=== PATIENT | female | born 1985 | race Caucasian/White ===

== ENCOUNTER → 2020-04-02 11:44 | Outpatient (CLI) | payer BC, SELFPAY ==
[2020-04-03 15:31] LABS: HPV Reflexed? NOT INDICATED
== END ==
PROVIDERS: Visit Provider Obstetrics & Gynecology
DX: Z12.4 Encounter for screening for malignant neoplasm of cervix (principal)
CPT/HCPCS: 88175; G0145

== ENCOUNTER → 2020-04-16 | Outpatient (CLI) | payer BC, SELFPAY ==
--- NOTE | 2020-04-16 16:25 | EMB_PTH ---
PATIENT: MARE FRANCISCO LOC: [facility] U#:[id number] AGE/SX: 34/F ROOM: RE04/16/[address]: Dr. Richard Cisneros MD : 1985 BED: DIS: 04/16/2020 SPEC #: [id number] RECD: 04/16/20 17:43 STATUS: YG JAMAR #: [id number] KENNEDI: 04/16/20 16:[address]: Richard Cisneros DEPT: SURGICAL PATHOLOGY RECD BY: Bijal Gonzalez Tissues: Endometrium, NOS Procedures: Surgery Specimen Level IV HEADER OPERATION: Endometrial biopsy PRE-OP DIAGNOSIS: N92.0 TISSUE SUBMITTED: Endometrial biopsy MICROSCOPIC DIAGNOSIS Endometrial biopsy: Proliferative endometrium. AZAR:dannie 04/18/20 MICROSCOPIC DESCRIPTION Slides are reviewed. GROSS DESCRIPTION Received in fixative is one container labeled with the patient's name and designated EM biopsy. The specimen consists of multiple fragments of hemorrhagic soft tissue mixed with mucoid tissue that in aggregate measure 3 x 2.5 x 0.3 cm. The entire specimen is submitted in one cassette. / SJ:rg 04/17/20 TC:4 CPT: 67648
== END | disposition home or self-care (01) ==
LOC: LAB 04-17 06:28 → LABSPEC 04-17 06:32
PROVIDERS: Visit Provider Obstetrics & Gynecology
DX: N92.0 Excessive and frequent menstruation with regular cycle (principal)
CPT/HCPCS: 88305

== ENCOUNTER 2020-05-26 12:21 | Day surgery (SDC) | payer BC, SELFPAY ==
[2020-05-21 14:06] LABS: Hematocrit 38.5 % (37-47); Hemoglobin 12.8 g/dL (12.0-15.0); Mean Corp Hgb Conc 33.2 g/dL (32-36); Mean Corpuscular Hgb 31.1 pg (27.0-32.0); Mean Corpuscular Volume 93.7 fL (81-99); Mean Platelet Vol. 8.8 fl (6.2-12.0); Platelet Count 231 K/mm3 (150-450); RBC Distribution Width CV 11.6 % (11.6-14.6); Red Blood Count 4.11 M/mm3 (4.2-5.4); White Blood Count 6.5 K/mm3 (4.4-11.0)
[2020-05-21 14:19] LABS: Prothrombin Time (Protime)PT. 12.5 SECONDS (11.7-14.9)
[2020-05-21 14:20] LABS: Partial Thromboplast Time 22.3 Seconds (24.1-36.2)
[2020-05-21 14:29] LABS: Thyroid Stim Hormone (TSH) 0.92 uIU/mL (0.358-3.74)
--- NOTE | 2020-05-25 21:34 | HP.PCM_ITS ---
History and Physical Date of Admission: 05/26/20 Surgical History and Physical Marcela Disla, a 34 year old female 0 2 0 0 2, presents for HTA, Hysteroscopy and D and C on May 26, 2020 at 2:00. -- Menorrhagia -- Heavy menses which began years ago. Marcela claims it started gradually It occurs with menses. It is located in the vagina. Severity is moderate and not improving; Associated signs and symptoms are dysmenorrhea. Additional comments are: u/s shows no polyps or fibroids today. MEDICATIONS HISTORY: ALLERGIES: NKDA Infections - Chicken pox Illnesses - no serious past illnesses Accidents - None Hospitalizations - see surgery and Childbirth Eclampsia 1st , Pre-eclampsia 2nd ; Review of Systems: GENERAL - Denies fever, or chills SKIN - Denies skin changes EYES - Denies visual changes EARS - Denies difficulty hearing NOSE - Denies nasal congestion or bleeding MOUTH - Denies sore throat or difficulty swallowing NECK - Denies pain or swelling RESPIRATORY - Denies shortness of breath or wheezing CARDIOVASCULAR - Denies palpitations or chest pain GASTROINTESTINAL - Denies nausea, vomiting, diarrhea, constipation GENITOURINARY - Denies dysuria, frequency of urination, incontinence of urine MUSCULOSKELETAL - Denies joint or muscle pain NEUROLOGICAL - Denies localized numbness or weakness PSYCHIATRIC - Denies depression or anxiety ENDOCRINE - Denies heat or cold intolerance, weight loss or gain HEMATO-IMMUNOLOGIC - Denies excessive bleeding with cuts SOCIAL HISTORY: Alcohol Use - drinks occasionally Smoking - stopped 2006 Diet - no special diet Lifestyle - moderate stress lifestyle and Exercise - active work Seat Belt Use - always Employer - [employer] [address] 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 05/15/2006 2. 06/11/2011 PHYSICAL EXAM BP- 104/70 Sitting, Right arm, regular cuff Weight- 200.58715 lbs Height- 61.25 inch BMI:37.56 CONSTITUTIONAL - NAD, well nourished, and well developed NEUROLOGICAL - Cranial nerves II-XII grossly intact PSYCHIATRIC - A and O to time, place, person, mood and affect External Genital Vagina - non-tender without lesions Urethra/Urethral Meatus - non-tender Bladder - non-tender Vagina - vaginal palma are pink and moist without loss of rugae and no evidence of atropy Cervix - without cervical motion tenderness and has normal size and features without evident lesions Uterus - multiparous size 6 cm & wt 75-125 g Adnexa - clear without masses or tenderness ASSESSMENT/PLAN: 1. Premenopause Menorrhagia EMBx OK. Discussed options and patient declines OCPs or other medications (prior tubal). Desires we proceed with HTA, H/S and D and C. Discussed RBAs and all questions answered.
[2020-05-26] VITALS (8 sets, daily range): BP systolic 115–144; BP diastolic 77–96; PULSE 70–90; RESP 15–16; TEMP 35.9–37.1; O2SAT 95–100; BMI 37.3
--- NOTE | 2020-05-26 | EMB_PTH ---
PATIENT: MARE FRANCISCO LOC: [facility] [place] U#:[id number] AGE/SX: 34/F ROOM: RE05/26/[address]: Dr. Richard Cisneros MD : 1985 BED: DIS: 05/26/2020 SPEC #: [id number] RECD: 05/26/20 15:57 STATUS: YG JAMAR #: [id number] KENNEDI: 05/26/20 00:[address]: Richard Cisneros DEPT: SURGICAL PATHOLOGY RECD BY: Ulises Clayton ENTERED: 05/27/20 07:44 SP TYPE: ENDOM BX/C MARYAM DR: Fanny Grossman, TRAFFIC OFFICER-Antonio Tissues: Endometrium, NOS Procedures: Surgery Specimen Level IV HEADER OPERATION: Hysteroscopy, D & C hydroablation PRE-OP DIAGNOSIS: Premenopause menorrhagia TISSUE SUBMITTED: Endometrial curettings MICROSCOPIC DIAGNOSIS Endometrium, curettings: Secretory endometrium. Scant strips of detached squamous epithelial cells. AM:dannie 05/28/20 MICROSCOPIC DESCRIPTION Slides are reviewed. GROSS DESCRIPTION Received in fixative is one container labeled with the patient's name and designated endometrial curettings. The specimen consists of multiple fragments of hemorrhagic soft tissue that in aggregate measure 7.5 x 3 x 0.3 cm. The entire specimen is submitted in three cassettes. / SJ:dannie 05/27/20 TC:5 CPT: 08010
[2020-05-26] MEDS: Lactated Ringers 1,000 ML 100 ML IV (12:50)
--- NOTE | 2020-05-26 14:42 | OP.PCM_ITS ---
Report of Operation Date of Procedure: 05/26/20 Pre-Operative Diagnosis: Menorrhagia Post-Operative Diagnosis: Menorrhagia Surgery/Procedure Performed:: Diagnostic Hysteroscopy, Dilation and Curettage, Hydrothermal Ablation Description of Surgical Findings:: 8 cm endometrial cavity without polyps or fibroids noted. Cervix which protruded to within 3-4 cm of the introitus with tenaculum pull down. Type of Anesthesia:: MAC Anesthesiologist: Juanito Moreno Specimen's removed: Endometrial curettings Estimated Blood Loss (mL): Minimal Fluids Replaced: Crystalloid Description of Procedure: Surgeon: Richard Cisneros MD, FACOG Indication: This is a 84 year old patient who has been having problems with extremely heavy menses. Conservative measures have not been helpful. Endometrial sampling was benign and pelvic ultrasound showed that ablation may be helpful. Pt has been counseled regarding the risks, benefits and alternatives of this procedure and all questions answered. She understands that only about half of patients will have amenorrhea after this procedure. Procedure: Patient taken to the operating room where after induction of general anesthesia the patient was prepped and draped in the usual sterile fashion. Bladder was drained of urine with a catheter. Anterior cervix grasped and cervix was dilated to about 17 Djiboutian size. Hysteroscopic hydrothermal ablation (HTA) unit was place in the cervix and the above findings were noted. HTA unit was removed and the uterus was gently curetted removing all contents. An HTA ablation cycle was then carried out at about 90 degrees Centigrade for 10 minutes with virtually no fluid loss during the procedure. After an appropriate cool down the HTA unit was removed with minimal bleeding noted. The patient tolerated the procedure well and was taken to the recovery room in satisfactory condition. Sponge, instruments and needle counts were all correct. There were no apparent complications of the surgery. Cefotetan 2 gms IV was given prior to the procedure. Grafts/Implants Used: None - Complications None - Admit VTE Documentation VTE Present on Admission: Yes VTE Mechan Device Prophylaxis: SCD's
--- NOTE | 2020-05-26 14:46 | DCINST_ITS ---
Discharge Diet: No Restrictions Discharge Activity: Return to Normal Activity, May Shower, May Take a Tub Bath Call your doctor if you observe: Fever of 101 or Higher, Inability to urinate, Inability to have a bowel movement, Using more than one pad per hour Allergies/Adverse Reactions: Allergies No Known Allergies Allergy (Verified 05/26/20 12:32) Medications to take at Discharge Ferrous Sulfate [Iron] 325 mg PO DAILY 05/21/20 Oxycodone [Oxyir] 5 mg PO Q6H PRN PRN 7 Days #7 tablet 05/26/20 The following prescriptions were given: Oxycodone [Oxyir] 5 mg PO Q6H PRN PRN 7 Days #7 tablet PRN Reason: Pain Score 6-10/10 Transmission Status: Sent to [id number] Primary Care Physician: Fanny Grossman NP-C [Primary Care Provider] - Test Results: Test results from this visit will be discussed in further detail at your follow- up appointment, if applicable. Please Follow Up With: Richard Cisneros MD When: 2-3 weeks
[2020-05-26] MEDS: oxyCODONE 5 MG Tablet PO (15:51)
== END 2020-05-26 16:34 | disposition home or self-care (01) ==
LOC: SDC 12:23 → AC 12:24
PROVIDERS: Anesthesiology; PCP Nurse Practitioner Family; Referring Provider Obstetrics & Gynecology; Visit Provider Obstetrics & Gynecology
PROC: 0U5B8ZZ Destruction of Endometrium, Via Natural or Artificial Opening Endoscopic (ICD-10-PCS; CPT 58563; principal; 2020-05-26 13:50)
DX: N92.4 Excessive bleeding in the premenopausal period (principal); D64.9 Anemia, unspecified; Z87.891 Personal history of nicotine dependence; Z11.59 Encounter for screening for other viral diseases
CPT/HCPCS: 00952; 58563; 64415; 76942; 36415; 84443; 85027; 85610; 85730; 86850; 86900; 86901; 87635; 88305; G2023; J7120; U0003

== ENCOUNTER 2021-11-25 15:32 | Outpatient (CLI) | payer BC, SELFPAY ==
[2021-11-30 11:39] LABS: HPV Reflexed? NOT INDICATED
== END 2021-11-25 23:59 | disposition short-term general hospital (02) ==
LOC: LABSPEC 15:33
PROVIDERS: PCP Nurse Practitioner Family; Visit Provider Obstetrics & Gynecology
DX: Z12.4 Encounter for screening for malignant neoplasm of cervix (principal)
CPT/HCPCS: 88175; G0145

== ENCOUNTER → 2022-08-19 | Outpatient (CLI) | payer BC, SELFPAY | END | disposition home or self-care (01) | PROVIDERS: PCP Nurse Practitioner Family; Visit Provider Obstetrics & Gynecology | DX: N76.0 Acute vaginitis (principal) ==

== ENCOUNTER 2023-09-27 10:06 | Day surgery (SDC) | payer BC, SELFPAY ==
--- NOTE | 2023-09-21 07:14 | EKG12_ITS ---
Test Reason : PREOP Blood Pressure : / mmHG Vent. Rate : 095 BPM Atrial Rate : 095 BPM P-R Int : 132 ms QRS Dur : 078 ms QT Int : 340 ms P-R-T Axes : 035 -03 023 degrees QTc Int : 427 ms Normal sinus rhythm with sinus arrhythmia Normal ECG Confirmed by ANCELMO LOPES, HAROLDO ([id number]), medical transcription editor CHAGO WISEMAN ([id number]) on 09/28/2023 11:52:08 AM Referred By: Kathy Benitez Confirmed By:HAROLDO AG MD
[2023-09-21 07:56] LABS: Hematocrit 40.3 % (37-47); Hemoglobin 13.4 g/dL (12.0-15.0); Mean Corp Hgb Conc 33.3 g/dL (32-36); Mean Corpuscular Hgb 31.2 pg (27.0-32.0); Mean Corpuscular Volume 93.9 fL (81-99); Mean Platelet Vol. 8.8 fl (6.2-12.0); Platelet Count 233 K/mm3 (150-450); RBC Distribution Width CV 11.9 % (11.6-14.6); RBC Distribution Width SD 41.2 fl (35.1-43.9); Red Blood Count 4.29 M/mm3 (4.2-5.4)
[2023-09-21 08:26] LABS: Anion Gap 4 (5-15); BUN 10 mg/dL (7-18); BUN/Creat Ratio 10.7 RATIO (10-20); Calcium,Total 8.9 mg/dL (8.5-10.1); Chloride 108 mmol/L (98-107); Creatinine, Serum 0.93 mg/dL (0.55-1.02); EST Glomerular Filtration Rate 71 mL/min (>60); Est Glom Filt Rate - Afr Amer 86 mL/min (>60); Glucose 115 mg/dL (74-106); Magnesium 2.2 mg/dL (1.6-2.6); Potassium 3.6 mmol/L (3.5-5.1); Sodium Level 138 mmol/L (136-145)
[2023-09-27] VITALS (8 sets, daily range): BP systolic 91–123; BP diastolic 56–94; PULSE 61–95; RESP 16–20; TEMP 36.3–36.6; O2SAT 95–100; BMI 37.5
--- NOTE | 2023-09-27 07:36 | HP.PCM_ITS ---
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 Required: No Is patient in pain?: No Allergies No Known Allergies Allergy (Verified 09/15/23 10:13) Medications ferrous sulfate 325 mg (65 mg iron) tablet 325 mg PO DAILY 05/21/20 [History Confirmed 09/15/23] acetaminophen 325 mg capsule (Tylenol) 325 mg PO ONCE PRN 08/01/23 [History Confirmed 09/15/23] alprazolam 0.25 mg tablet (Xanax) 0.25 mg PO QHS PRN 08/01/23 [History Confirmed 09/15/23] ibuprofen 300 mg tablet 600 mg PO Q6H PRN 08/01/23 [History Confirmed 09/15/23] meclizine 12.5 mg tablet 12.5 mg PO TID PRN 08/01/23 [History Confirmed 09/15/23] Is last menstrual period known: Yes Post menopausal: No Patient : No : No PFSH Surgical History (Updated 08/01/23 @ 10:07 by Chayo Vasquez) H/O bilateral salpingectomy History of endometrial ablation Hx of section Social History (Updated 08/01/23 @ 10:00 by Chayo Vasquez) number of children: 2 current occupational status: employed 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 Female Reproductive History Menopausal Symptoms: No night sweats History Past Pregnancies Del. Date Name GA/Weeks Outcome Route Bth Weight Gen Labor Lgth Anesthesia Del Locatn Provider FOB Unknown Tomas live - Unknown Nilda live - ROS Const Constitutional: Denies fatigue, night sweats, weight gain or weight loss ENT ENT: Reports system reviewed and no additional complaints, except as documented Cardio Card: Denies chest pain Resp Resp: Denies cough or dyspnea GI GI: Reports as per HPI; Denies abdominal pain, constipation, nausea or vomiting : Denies nipple discharge, urinary frequency, urinary incontinence, urinary hesitancy, urinary urgency, vaginal discharge, vaginal dryness, vaginal odor or vaginal pruritus Musc Musc: Denies arthralgias, back pain or muscle weakness Skin Skin/Breast: Denies alopecia, change in hair, dry skin, breast mass, breast pain, breast skin changes or nipple discharge Neuro Neuro: Reports system reviewed and no additional complaints, except as documented Psych Psych: Reports system reviewed and no additional complaints, except as do cumented Endo Endo: Denies cold intolerance, excessive sweating, heat intolerance or polydipsia Nick/Lymph Hematologic/Lymphatic: Denies easy bleeding, Denies easy bruising and Denies lymphadenopathy Exam Const General: cooperative, healthy appearing, comfortable and no acute distress Orientation: alert [facility] Head: normal to inspection and normocephalic Ears: hearing grossly normal bilaterally and external ears normal Nose: external nose normal and nares normal Face and sinus: normal facial exam Neck Neck: normal visual inspection and no lymphadenopathy Thyroid: thyroid normal Chest Chest palpation & inspection: normal inspection of the chest Resp Effort & Inspection: normal respiratory effort Auscultation: clear to auscultation bilaterally Cardio Rate: regular rate Rhythm: regular rhythm Heart Sounds: S1 normal and S2 normal GI Inspection: normal to inspection and non-distended Palpation: soft and no hepatosplenomegaly Musc Other: gross motor intact no deficits, full bilateral strength Skin General: no rashes or lesions noted Neuro General: patient alert, patient awake, moves all extremities and no focal motor deficits Motor: muscle tone normal throughout Extrem General: normal to inspection and no pedal edema Psych Appearance: grossly normal Mental Status: mental status grossly normal Affect: normal affect Speech and Movement: speech and movement normal Coding Level of Care Code No Charge Diagnoses Chronic pelvic pain in female R10.2; G89.29 Assessment and Plan Assessment and Plan (1) Chronic pelvic pain in female: Status: Chronic Comment: suspect post ablation tubal ligation pelvic pain syndrome, nl US and CT scan, failed progestin therapy. plan STEPHANIE BS. Plan After discussing the patient's diagnosis and treatment plan options, patient wishes to proceed with surgical management. I have discussed with the patient the risks, benefits, and alternatives of the procedure which include but are not limited to risks of anesthesia, bleeding, infection, possible damage to bowel, bladder, or surrounding vasculature which could lead to additional surgery to evaluate any complications. Patient agrees to procedure and wishes to proceed. ACOG/uptodate references given for additional information regarding procedure. UPDATE- I have seen the patient and performed any clinically relevant updates to the history and physical exam. Kathy Benitez MD
[2023-09-27 10:52] LABS: Internal QC Validated? YES +Cl - CLEAR BKGD; Pregnancy, Urine Negative Negative
[2023-09-27] MEDS: Lactated Ringers 1,000 ML 40 ML IV ×2 (10:59→18:38)
[2023-09-27] MEDS: Magnesium 1 GM over 15 mins IV (11:00)
[2023-09-27] MEDS: Scopolamine 1mg/72hr Patch 1 PATCH TD (11:00)
[2023-09-27] MEDS: Acetaminophen 500 MG Tablet 1000 MG PO (11:04)
[2023-09-27] MEDS: Celecoxib 200 MG Capsule 400 MG PO (11:05)
[2023-09-27] MEDS: Gabapentin 600 MG Tablet PO (11:05)
[2023-09-27] MEDS: Phenazopyridine 95 MG Tablet 190 MG PO (11:05)
[2023-09-27] MEDS: dexAMETHasone 4 MG/ML Vial 8 MG IV (11:06)
[2023-09-27] MEDS: Enoxaparin 40 MG/0.4 ML Syringe SC (11:06)
--- NOTE | 2023-09-27 12:25 | HYST_PTH ---
PATIENT: MARE FRANCISCO LOC: [facility] [place] U#:[id number] AGE/SX: 38/F ROOM: RE09/27/[address]: Dr. Kathy Benitez MD : 1985 BED: DIS: 09/27/2023 SPEC #: [id number] RECD: 09/28/23 09:27 STATUS: YG JAMAR #: [id number] KENNEDI: 09/27/23 12:[address]: Kathy Benitez DEPT: SURGICAL PATHOLOGY RECD BY: Deyanira Paige ENTERED: 09/28/23 09:27 SP TYPE: HYSTERECT OTHR DR: Fanny Grossman, AUTOMOBILE BODY REPAIR SUPERVISOR-C Tissues: Uterus, NOS Procedures: Surgery Specimen Level V HEADER OPERATION: ERAS, hysterectomy, LAVH, bilateral salpingectomy PRE-OP DIAGNOSIS: Post ablation pelvic pain TISSUE SUBMITTED: Uterus, cervix, bilateral fallopian tubes MICROSCOPIC DIAGNOSIS Uterus, hysterectomy: Cervix - Nabothian cysts and mild chronic inflammation. Endometrium - weakly proliferative to inactive endometrium. Myometrium - leiomyomas. Right fallopian tube - benign paratubal cyst. Left fallopian tube - benign paratubal cyst. AM:dannie 09/30/2023 MICROSCOPIC DESCRIPTION Slides are reviewed. GROSS DESCRIPTION Received in fixative is one container labeled with the patient's name and designated uterus. The specimen consists of a uterus with attached right and left fallopian tubes and attached cervix. The uterus with cervix measures 9.0 x 5.5 x 3.5 cm and weighs 65.4 gm. The ectocervix is grossly unremarkable. The endocervical canal measures 3.6 cm in length and is grossly unremarkable. The triangular endometrial cavity measures 3.0 x 1.6 cm. The velvety, lozano endometrium measures up to 0.2 cm in thickness. The myometrium measures 2.0 cm in average thickness and contains a firm, rubbery, lozano-white nodule measuring 0.9 cm in greatest dimension. The right and fallopian tubes are similar in appearance with average lengths of 5.0 cm and average diameters of 0.7 cm. The right paratubal soft tissue contains a smooth, glistening cyst containing clear fluid and measuring 1.0 cm. A similar cyst measuring 1.5 cm is present in the left paratubal soft tissue. Ecommerce Manager sections are submitted in eight cassettes as follows: 1 - anterior cervix, 2 - posterior cervix, 3 & 4 - anterior myometrial wall, 5??posterior myometrial wall with nodule, 6 - posterior myometrial wall, 7 - right fallopian tube and paratubal cyst, 8 - left fallopian tube and paratubal cyst. / AM:dannie 09/28/2023 TC:1 CPT: 40870
[2023-09-27 12:49] LABS: Bedside Glucose 90 mg/dL (74-106)
[2023-09-27] MEDS: Cefazolin 2 GM in 0.9% Normal Saline (100mL Bag) 100 ML IV (14:15)
[2023-09-27] MEDS: Bupivacaine 0.25% 30 ML Vial (14:30)
[2023-09-27] MEDS: Vasopressin 20 UNITS/ML Vial (15:15)
[2023-09-27] MEDS: Ondansetron 4 MG/2 ML Vial IV (16:23)
--- NOTE | 2023-09-27 18:02 | PCM.OPRPT ---
Problems Associated Problem List Diagnoses (1) S/P laparoscopic assisted vaginal hysterectomy (LAVH): (2) Chronic pelvic pain in female: Report of Operation Date of Procedure: 09/27/23 Pre-Operative Diagnosis: see A/P Post-Operative Diagnosis: same Surgery/Procedure Performed:: PARADISES Surgeon: Kathy Benitez wellness coordinator: Arnie Masters Type of Anesthesia: General Special Medications: asrista Specimen's removed: uterus, tubes Drains: solorzano Estimated Blood Loss (mL): 200 Fluids Replaced: crystalloid Description of Procedure: Patient received preoperative antibiotics and SCDs were on preoperatively. Patient was taken back to the operating room and placed in the dorsal lithotomy position. General anesthesia was induced and patient was prepped and draped in normal sterile fashion. Uterine manipulator was placed inside the uterus and Solorzano catheter placed in the bladder. The umbilicus was grasped with towel clamps and an intraumbilical incision was made after injecting with quarter percent Marcaine and a Veress needle entered into the abdomen confirmed to be intra-abdominal with a low opening pressure. Abdomen was insufflated with CO2 gas and the Veress needle removed and the 5 mm trocar was placed under direct visualization without complication. Right and left lower quadrants were transilluminated and injected with quarter percent Marcaine and 5 mm ports placed under direct visualization. Pelvis was well visualized see operative findings for additional information. Bilateral fallopian tubes were identified and transected with the LigaSure device across the mesosalpinx to the level of the utero-ovarian ligament which was also transected with the LigaSure device. The broad ligament was opened up by transecting the round ligament bilaterally and skeletonizing the uterine vessels bilaterally and creating a bladder flap using the LigaSure device. The uterine arteries were transected bilaterally with good visualization of the bladder and the ureters were seen to be inferior lateral to the operative area. Attention was then paid to the vaginal portion of the procedure and the cervix was grasped with Simba clamps and circumferentially injected with dilute vasopressin. A circumferential incision was made and the vaginal mucosa was mobilized off posteriorly and the cul-de-sac entered into sharply and a longneck speculum placed. The anterior cul-de-sac was then identified and entered into sharply. The uterosacral ligaments were clamped cut and suture ligated with 0 Monocryl bilaterally followed by the cardinal ligaments which were clamped cut and suture ligated bilaterally with 0 Monocryl. The uterus serially descended and was removed without difficulty. Pelvic sidewall pedicles were checked and noted to have excellent hemostasis. The vaginal mucosa was reapproximated incorporating the posterior peritoneum. This was reapproximated using 0 Vicryl [id number] sutures. Excellent hemostasis was noted. The pelvis and cul-de-sac were well visualized and no significant active bleeding noted but some raw areas were seen on the peritoneum and therefore Willie was applied. Pressure was taken down and the areas visualized and noted of excellent hemostasis. All ports were removed under direct visualization without complication and the abdomen was desufflated of air. The instruments were removed from the abdomen and the vaginal sweep was negative. Port sites on the abdomen were closed with 4-0 Monocryl interrupted sutures and Steri's and windows were applied. She was awoken and taken recovery in stable condition. Grafts/Implants Used: none Complications none Admit VTE Documentation VTE Present on Admission: No VTE Mechan Device Prophylaxis: SCD's VTE Pharm Prophylaxis ordered?: Yes Procedures Urinary/Genital 52xxx-59xxx: 37004 LAVH+BS/O <250gr Uterus
--- NOTE | 2023-09-27 18:03 | DCINST_ITS ---
Discharge Instructions Diet Discharge Diet: No restrictions Activity May resume sexual activity in: 6 weeks Weight Bearing Status: Full weight bearing Dressing / Incision Call your doctor if your incision/area has: Continuous Slow Oozing, Sudden Increased Bleeding, Increased Pain/ Swelling, Increased Redness and Foul Smelling Discharge Call your doctor if you observe: Fever of 101 or Higher, Using more than 1 pad per hour, Shortness of breath, Chest pain and Uncontrolled pain Suture Line Care: Avoid Pulling/Pushing and Avoid Pinching/Bending Remove Dressing in: 1 week (if present) Cleanse incision/area with: Soap & Water and Keep Dressing Clean & Dry Follow Up Care Please Follow Up With: Kathy Benitez MD When: Call to make an appointment with your doctor for a postop visit in 2 and 6 weeks. Test Results: Test results from this visit will be discussed in further detail at your follow- up appointment, if applicable. Discharge Plan Admission Attending Provider: Kathy Benitez Primary Care Provider: Fanny Grossman NP Discharge Orders/Prescriptions Prescriptions: No Action alprazolam [Xanax] 0.25 mg tablet 0.25 mg PO QHS PRN (Reason: anxiety) meclizine 12.5 mg tablet 12.5 mg PO TID PRN (Reason: dizziness) acetaminophen [Tylenol] 325 mg capsule 325 mg PO ONCE PRN (Reason: pain) ibuprofen 300 mg tablet 600 mg PO Q6H PRN (Reason: pain) ascorbic acid (vitamin C) [C-500] 500 mg tablet 1 g PO MOWEFR vitamin B complex Capsule 1 cap PO MOWEFR Referrals / Follow Up: Fanny Grossman NP, CORRECTIONAL COUNSELOR/CASE MANAGER-C [Primary Care Provider] - Disposition Disposition (needs filled in before D/C Order can be placed): Home, Self Care
[2023-09-27] MEDS: Ketorolac 30 MG/ML Syringe IV (18:33)
[2023-09-27 19:06] LABS: Hematocrit 37.7 % (37-47); Hemoglobin 12.3 g/dL (12.0-15.0); Mean Corp Hgb Conc 32.6 g/dL (32-36); Mean Corpuscular Hgb 31.1 pg (27.0-32.0); Mean Corpuscular Volume 95.4 fL (81-99); Mean Platelet Vol. 8.5 fl (6.2-12.0); Platelet Count 221 K/mm3 (150-450); RBC Distribution Width CV 11.8 % (11.6-14.6); RBC Distribution Width SD 40.7 fl (35.1-43.9); Red Blood Count 3.95 M/mm3 (4.2-5.4); White Blood Count 9.9 K/mm3 (4.4-11.0)
== END 2023-09-27 20:23 | disposition home or self-care (01) ==
LOC: SDC 10:08 → AC 10:08
PROVIDERS: Anesthesiology; PCP Nurse Practitioner Family; Referring Provider Obstetrics & Gynecology; Visit Provider Obstetrics & Gynecology
PROC: 0UT9FZZ Resection of Uterus, Via Natural or Artificial Opening With Percutaneous Endoscopic Assistance (ICD-10-PCS; CPT 58552; principal; 2023-09-27 12:00)
DX: N88.8 Other specified noninflammatory disorders of cervix uteri (principal); D25.9 Leiomyoma of uterus, unspecified; N83.8 Other noninflammatory disorders of ovary, fallopian tube and broad ligament; R10.2 Pelvic and perineal pain; G89.29 Other chronic pain; F41.9 Anxiety disorder, unspecified; Z87.891 Personal history of nicotine dependence; Z79.899 Other long term (current) drug therapy
CPT/HCPCS: 58552; 00840; 36415; 80048; 81025; 82962; 83735; 85027; 86850; 86900; 86901; 88307; 93005; J7120; J2405; J3475

== ENCOUNTER → 2024-07-18 | Outpatient (CLI) | payer BC, SELFPAY ==
--- NOTE | 2024-07-18 13:21 | BI_ITS ---
MAMMOGRAPHY - BILATERAL SCREENING REASON FOR EXAM: Female, 39 years old. Routine annual screening examination. PERTINENT HISTORY: Grandfather with breast cancer. TECHNIQUE: Digital bilateral breast joseph (3D mammographic acquisition) in the CC and MLO projections. 2-D mediolateral oblique (MLO) and craniocaudad (CC) views of both breasts were obtained. CAD: Full Field Digital Mammography with Computer Added Detection was performed. COMPARISON: None. Baseline examination. FINDINGS: Breast Composition: The breasts are extremely dense, which lowers the sensitivity of mammography. There are no dominant masses or suspicious calcifications. Benign-appearing bilateral axillary lymph nodes. No other significant abnormalities are identified. BI/SCRN MAMM (CAD)W/JOSEPH BILAT IMPRESSION: Negative screening mammogram. Yearly followup mammogram recommended. (A) ASSESSMENT CATEGORY: BIRADS Category 2: Benign. A letter regarding these results will be sent to the patient by the facility within 30 days. Approximately 10% of breast cancers are not detected by mammography. A normal mammogram should not delay biopsy of a clinically suspicious abnormality. [id number] Electronically Signed: Devonte Ronquillo MD at 14:40 EDT ,
== END | disposition home or self-care (01) ==
LOC: OPBI 13:21
PROVIDERS: PCP Nurse Practitioner Family; Referring Provider Nurse Practitioner Women's Health; Visit Provider Nurse Practitioner Women's Health
DX: Z12.31 Encounter for screening mammogram for malignant neoplasm of breast (principal)
CPT/HCPCS: 77063; 77067

== ENCOUNTER → 2025-05-22 | Outpatient (CLI) | payer BC, SELFPAY ==
--- NOTE | 2025-07-23 16:46 | BI_ITS ---
EXAM: SCRN MAMM (CAD)W/JOSEPH BILAT DATE: 07/23/2025 CLINICAL HISTORY: F, Age 40 y/o , SCREENING History of grandmother with breast cancer. TECHNIQUE: Procedure Code: [id number] Modality: MG Procedure: SCRN MAMM (CAD)W/JOSEPH BILAT COMPARISON: Prior exam(s) dated July 18, 2024.. FINDINGS: TISSUE DENSITY: The breasts are extremely dense, which lowers the sensitivity of mammography. Bilateral Breast Mammographic Findings: No significant masses, calcifications or other abnormalities are identified. Stable small benign-appearing bilateral axillary lymph nodes. No suspicious masses, areas of developing architectural distortion, or suspicious calcifications. There has been no significant interval change. BI/SCRN MAMM (CAD)W/JOSEPH BILAT IMPRESSION: Stable bilateral screening mammogram. OVERALL FINAL ASSESSMENT BI-RADS 2: BENIGN RECOMMENDATION: Routine annual follow-up in 1 Year A letter with findings and recommendations will be mailed to the patient. Reading Location: [facility]
--- OUTSIDE RECORDS SUMMARY | 2025-07-24 07:33 | XMS RPT_ITS | CCD ---
Author Organization [facility] Care Team Providers Care Pipe Racker Name Role Phone NASREEN FERNÁNDEZ Unavailable Unavailable NASREEN FERNÁNDEZ Unavailable Unavailable WESLEY ODOM-CFANNY Unavailable [phone] RENEE LOPES, LARISSA Bautista Unavailable CARLOS ALBERTO LOPES, AXEL Blake Unavailable OBGYN, GENERAL Unavailable Unavailable HEMATOLOGY, GENERAL Unavailable Unavailable TARUN CARLSON Unavailable ALBERT[place] Unavailable Unavailable Vincent DELEON, [place] Unavailable Unavailable CARLOS ALBERTO LOPES, HARJEET Sue Unavailable MERLY LOPES, NASREEN Flores Unavailable [phone] Charmaine Guo Unavailable Unavailable Sari RN, Arielle Unavailable Unavailab elise MANRIQUEZ MD, Marisela REYNA Unavailable [phone] MIRTHA MORAN Unavailable Unavailable Stan MORAN MD Unavailable TYRELL BROCK Unavailable Unavailable [employer] DISPATCH ASSOCIATE, Niecy Unavailable Unavailable JOSIE BEDOLLA Unavailable Unavailable BLANCA BEDOLLA Unavailable Unavailable LINNETTE LOPES, GEORGE Pham Unavailable [phone] Barrington RN, Od[place] Unavailable Unavailjoana Christian RN, Jannette Unavailable Unavailable Unavailable Unavailable Zeus ANNN, Edie Unavailable Unavailable FANNY GROSSMAN SNOWBOARDING INSTRUCTOR Attending Unavailab FANNY Ventura SNOWBOARDING INSTRUCTOR Admitting Unavailab FANNY Ventura SNOWBOARDING INSTRUCTOR Primary Care Unavailab FANNY Ventura SNOWBOARDING INSTRUCTOR Consulting Unavailab le PROVIDER, UNKNOWN Consulting Unavailable PROVIDER, UNKNOWN Consulting Unavailable DANNA DUDLEY MD Attending Unavailable FANNY GROSSMAN SNOWBOARDING INSTRUCTOR Consulting Unavailab le DANNA DUDLEY MD Admitting Unavailable DANNA DUDLEY MD Primary Care Unavailable PROVIDER, UNKNOWN Consulting Unavailable PROVIDER, UNKNOWN Consulting Unavailable FANNY GROSSMAN NP Attending Unavailab FANNY Ventura NP Admitting Unavailab FANNY Ventura NP Primary Care Unavailab FANNY Ventura NP Consulting Unavailab le PROVIDER, UNKNOWN Consulting Unavailable PROVIDER, UNKNOWN Consulting Unavailable MARIAN KAUR MD Unavailable FANNY ROJO Unavailable Unav ailable Unavailable Primary Care Provider Unavailabl e Fanny Grossman Primary Care Unavailable Anderson SNOWBOARDING INSTRUCTOR, Cristel Attending Unavailable Fanny Grossman Referring Unavailable Harjeet Carcamo Primary Care Unavailable Anderson SNOWBOARDING INSTRUCTOR, Cristel Referring Unavailable Anderson SNOWBOARDING INSTRUCTOR, Cristel Attending Unavailable Allergies Allergy Classification Reported Allergen(s) Allergy Type Date of Onset Reaction(s) Facility (8 sources) Gentamicin eye drops (Renamed from Gentamicin in Saline *AMINOGLYCOSIDES* ) 06-15-2023 Itching [facility] [place] - [facility] Medications Current Medications Medication Drug Class(es) Dates Sig (Normalized) Sig (Original) ALPRAZolam 0.25 mg oral tablet (8 sources) Benzodiazepine Start: 01-11-2024 Xanax 0.25 mg tablet ; 1 (one) Tablet two times daily, as needed for 30 days Quantity: 20 {Tablet} Refills: 2 Ordered: 21-Nov-2024 MD MARIAN KAUR Start: 21-Nov-2024 Comments: Medication taken as needed. Start: 06-15-2023 Xanax 0.25 mg tablet ; 1 (one) Tablet two times daily, as needed for 0 days Quantity: 20 {Tablet} Refills: 2 Ordered: 15-Jun-2023 JACKIE GROSSMAN Start: 15-Jun-2023 Comments: Medication taken as needed. Comment on above: Medication taken as needed. ferrous sulfate 325 mg oral tablet (2 sources) Start: 05-21-2020 take 325 mg by mouth once daily Ferrous Sulfate Active 325 MG PO DAILY May 21, 2020 12:00am take 1 tablet by mouth twice coreen ly ferrous sulfate (IRON) 325 mg (65 mg iron) tablet Take 325 mg by mouth twice daily. Active meclizine hydrochloride 12.5 mg oral tablet (8 sources) Antiemetic Start: 01-11-2024 meclizine 12.5 mg tablet ; 1-2 Tablet Tablet up to every 6-8 hours prn dizziness for 10 days Quantity: 30 {Tablet} Refills: 1 Ordered: 11-Jan-2024 JACKIE GROSSMAN FANNY Storm Start: 11-Jan-2024 Comments: Do not drive or operate equipment within 4 hours of taking. Start: 12-20-2017 End: 11-16-2018 Meclizine HCl 12.5 MG Oral T ablet ; 1-2 Tablet Tablet up to every 6-8 hours prn dizziness for 10 days Quantity: 30 {Tablet} Refills: 1 Ordered: 16-Nov-2018 PANCHO Ferris Start: 20-Dec-2017 End: 16-Nov-2018 Status: Inactive Comments: Do not drive or operate equipment within 4 hours of taking. Comment on above: Do not drive or oper ate equipment within 4 hours of taking. triamcinolone acetonide 1 mg/ml topical cream (2 sources) Corticosteroid Start: 11-21-2024 triamcinolone acetonide 0.1 % topical cream ; 1 (one) appication two times daily for 7 days Quantity: 15 {Gram} Refills: 0 Ordered: 21-Nov-2024 MD MARIAN KAUR Start: 21-Nov-2024 Comments: medication to be dispensed in office Comment on above: medication to be dis pensed in office Completed/Discontinued Medications Medication Drug Class(es) Dates Sig (Normalized) Sig (Original) amoxicillin 500 mg oral tablet (8 sources) Penicillin-class Antibacterial Start: 12-22-2010 End: 01-01-2011 take 1 tablet by mouth three times daily AMOXICILLIN, 500MG (Oral Tablet) ; 1 (one) Tablet three times daily for 10 days Quantity: 30 {Tablet} Refills: 0 Ordered: 04-Jan-2011 MD NASREEN FERNÁNDEZ Start: 22-Dec-2010 End: 01-Jan-2011 Status: Inactive ascorbic acid 125 mg / iron carbonyl 65 mg delayed release oral tablet (8 sources) Vitamin C take 1 tablet by mouth once daily Vitron-C 65-125 MG Oral Tablet ; 1 daily (65-125 MG) Status: Inactive azithromycin 250 mg oral tablet (8 sources) Macrolide Antimicrobial Start: 04-14-2011 End: 04-19-2011 AZITHROMYCIN, 250MG (Oral Tablet) ; 1 Tablet daily for 5 days Quantity: 6 {Tablet} Refills: 0 Ordered: 05-May-2011 MD NASREEN FERNÁNDEZ Start: 14-Apr-2011 End: 19-Apr-2011 Status: Inactive Comments: take two tablets day one and then one tablet daily for 4 days Comment on above: take two tablets day one and then one tablet daily for 4 days 24 hr buPROPion hydrochloride 150 mg extended release oral tablet (8 sources) Aminoketone Start: 05-20-2014 End: 07-21-2016 take 2 tablets by mouth once daily, then take 1 tablet by mouth once daily Wellbutrin XL 150 MG Oral Tablet Extended Release 24 Hour ; 2 (two) Tablet daily for 60 days Quantity: 120 {Tablet} Refills: 1 Ordered: 21-Jul-2016 PANCHO Christian Start: 20-May-2014 End: 21-Jul-2016 Status: Inactive Comments: Extended ReleaseStart by taking 1 tablet per day for first week. Comment on above: Extended ReleaseStar t by taking 1 tablet per day for first week. esomeprazole 40 mg delayed release oral capsule (8 sources) Proton Pump Inhibitor Start: 03-19-2013 End: 07-21-2016 NexIUM 40 MG Oral Capsule Delayed Release ; [address] prn for 30 days Quantity: 30 {Capsule_DR} Refills: 1 Ordered: 21-Jul-2016 PANCHO Christian Start: 19-Mar-2013 End: 21-Jul-2016 Status: Inactive ketoconazole 200 mg oral tablet (8 sources) Azole Antifungal Start: 12-29-2011 End: 12-31-2011 take 2 tablets by mouth every week KETOCONAZOLE, 200MG (Oral Tablet) ; 2 (two) Tablet now and in1 week for 2 days Quantity: 4 {Tablet} Refills: 0 Ordered: 01-Mar-2012 MD NASREEN FERNÁNDEZ Start: 29-Dec-2011 End: 31-Dec-2011 Status: Inactive lisinopril 10 mg oral tablet (8 sources) Angiotensin Converting Enzyme Inhibitor Start: 12-20-2017 End: 06-07-2018 take 1 tablet by mouth once daily Lisinopril 10 MG Oral Tablet ; 1 (one) Tablet Tablet daily for 30 days Quantity: 30 {Tablet} Refills: 1 Ordered: 07-Jun-2018 GRAEMEJOSIE LEDESMA Start: 20-Dec-2017 End: 07-Jun-2018 Status: Inactive Comments: did not start yet. 01-10-18 Comment on above: did not start yet. LORazepam 0.5 mg oral tablet (8 sources) Benzodiazepine Start: 02-08-2014 End: 03-10-2014 take 1 tablet by mouth once daily as needed ATIVAN, 0.5MG (Oral Tablet) ; one Tab once a day as needed for 30 days Quantity: 15 {Tube} Refills: 0 Ordered: 08-Feb-2014 MD Stan MORAN Start: 08-Feb-2014 End: 10-Mar-2014 Status: Inactive Comments: Medication taken as needed. Comment on above: Medication taken as needed. naproxen 500 mg oral tablet (8 sources) Nonsteroidal Anti-inflammatory Drug Start: 11-13-2010 End: 01-15-2011 take 1 tablet by mouth twice daily as needed NAPROXEN, 500MG (Oral Tablet) ; 1 (one) Tablet two times daily, as needed for 0 days Quantity: 30 {Tablet} Refills: 0 Ordered: 15-Jan-2011 PANCHO Ferris Start: 13-Nov-2010 End: 15-Jan-2011 Status: Inactive Comments: Medication taken as needed. meds to be dispensed in office Comment on above: Medication taken as needed. meds to be dispensed in office omeprazole 20 mg delayed release oral capsule (8 sources) Proton Pump Inhibitor Start: 07-07-2011 End: 08-18-2011 take 1 capsule by mouth once daily PRILOSEC, 20MG (Oral Capsule Delayed Release) ; 1 (one) Capsule DR daily for 30 days Quantity: 30 {Capsule_DR} Refills: 1 Ordered: 18-Aug-2011 MIRTHA MORAN Start: 07-Jul-2011 End: 18-Aug-2011 Status: Inactive oxyCODONE hydrochloride 5 mg oral tablet (1 source) Opioid Agonist Start: 05-26-2020 End: 06-02-2020 take 5 mg by mouth every six hours as needed Oxycodone Discontinued 5 MG PO EVERY 6 HOURS NEEDED 05 13May 26, 2020 June 02, 2020 12:02am sertraline 25 mg oral tablet (8 sources) Serotonin Reuptake Inhibitor Start: 02-15-2019 End: 06-06-2019 take 1 tablet by mouth once daily Sertraline HCl 25 MG Oral Tablet ; 1 (one) Tablet daily for 0 days Quantity: 90 {Tablet} Refills: 1 Ordered: 06-Jun-2019 PANCHO Christian Start: 15-Feb-2019 End: 06-Jun-2019 Status: Inactive Comments: Mail order. Comment on above: Mail order. sulfamethoxazole 800 mg / trimethoprim 160 mg oral tablet (8 sources) Dihydrofolate Reductase Inhibitor Antibacterial, Sulfonamide Antimicrobial Start: 08-04-2023 End: 08-07-2023 Bactrim DS 800 mg-160 mg tablet ; 1 (one) Tablet two times daily for 3 days Quantity: 6 {Tablet} Refills: 0 Ordered: 04-Aug-2023 JACKIE GROSSMAN Start: 04-Aug-2023 End: 07-Aug-2023 Status: Inactive DOUGLAS- (Oral Capsule) (8 sources) Start: 12-16-2010 End: 08-18-2011 take 1 capsule by mouth once daily DOUGLAS- (Oral Capsule) ; 1 Capsule daily for 100 days Quantity: 100 {Capsule} Refills: 10 Ordered: 18-Aug-2011 MIRTHA MORAN Start: 16-Dec-2010 End: 18-Aug-2011 Status: Discontinued Comments: This order discontinued per [facility]. Comment on above: This order discontin ued per [facility]. Problems Active Problems Problem Classification Problem Date Documented Date Episodic/Chronic Abdominal pain (20 sources) Pain in pelvis; Translations: [Pelvic and perineal pain] 06-15-2023 Episodic Acute bronchitis (8 sources) Acute bronchitis; Translations: [Acute bronchitis, unspecified] 04-14-2011 Episodic Administrative/social admission (16 sources) Patient encounter status; Translations: [Counseling, unspecified] 06-15-2023 Episodic Allergic reactions (4 sources) Inflammatory dermatosis; Translations: [Dermatitis, unspecified] 11-21-2024 Episodic Anxiety disorders (20 sources) Anxiety; Translations: [Anxiety disorder, unspecified] 06-15-2023 Chronic Comment on above: Declines daily medic ationUses xanax intermittently Cardiac dysrhythmias (20 sources) Palpitations; Translations: [Palpitations] Onset: 06-22-2023 06-22-2023 Episodic Conditions associated with dizziness or vertigo (20 sources) Dizziness; Translations: [Dizziness and giddiness] 12-20-2017 Episodic Deficiency and other anemia (20 sources) Iron deficiency anemia; Translations: [Iron deficiency anemia, unspecified] 06-15-2023 Episodic Deficiency and other anemia (20 sources) Anemia; Translations: [Anemia, unspecified] 06-07-2018 Episodic Diabetes mellitus without complication (8 sources) Increased glucose level; Translations: [Other abnormal glucose] 05-20-2014 Episodic Esophageal disorders (16 sources) Esophageal reflux 03-19-2013 Chronic Genitourinary symptoms and ill-defined conditions (20 sources) Urinary symptoms ; Translations: [Unspecified symptoms and signs involving the genitourinary system] 08-04-2023 Episodic Headache; including migraine (16 sources) Headache; including migraine 06-15-2023 Comment on above: Congenital heart def ect. Migraine headache. Hypertension complicating ; childbirth and the puerperium (16 sources) Unspecified hypertension complicating , childbirth, or the puerperium, unspecified as to episode of care or not applicable 05-19-2011 Chronic Hypertension complicating ; childbirth and the puerperium (8 sources) Eclampsia - delivered; Translations: [Eclampsia complicating the puerperium] 05-19-2011 Episodic Immunizations and screening for infectious disease (20 sources) Needs influenza immunization; Translations: [Encounter for immunization] 06-15-2023 Episodic Malaise and fatigue (8 sources) Fatigue; Translations: [Other fatigue] 03-01-2012 Episodic Mood disorders (20 sources) Depressive disorder; Translations: [Depressive disorder, not elsewhere classified] 12-19-2019 Chronic Comment on above: Clinical. Mycoses (8 sources) Pityriasis versicolor; Translations: [Pityriasis versicolor] 12-29-2011 Episodic Other aftercare (20 sources) H/O: high risk medication; Translations: [Other [place] [facility] (current[facility] drug therapy] 02-11-2021 Episodic Other circulatory disease (19 sources) Elevated blood pressure; Translations: [Elevated blood-pressure reading, without diagnosis of hypertension] 12-19-2019 Episodic Other complications of (8 sources) complications 06-15-2023 Episodic Comment on above: Eclampsia. Other connective tissue disease (8 sources) Plantar fasciitis; Translations: [Plantar fascial fibromatosis] 11-13-2010 Episodic Other non-traumatic joint disorders (2 sources) Hip pain; Translations: [Pain in left hip] 03-22-2025 Episodic Other and delivery including normal (20 sources) Routine follow-up; Translations: [Supervision of other normal ] 08-18-2011 Episodic Other upper respiratory infections (8 sources) Acute sinusitis; Translations: [Acute sinusitis, unspecified] 04-14-2011 Episodic Residual codes; unclassified (20 sources) Overweight; Translations: [Other specified conditions influencing health status] 06-15-2023 Episodic Residual codes; unclassified (16 sources) History of endometrial ablation; Translations: [Other specified postprocedural states] 06-15-2023 Episodic Residual codes; unclassified (8 sources) Feeling nervous; Translations: [Nervousness] 02-08-2014 Episodic Unclassified (20 sources) Encounter for screening for malignant neoplasm of cervix; Translations: [Cancer cervix screening status] Onset: 06-07-2018 06-15-2023 Episodic Unclassified (8 sources) 1st weight 06-15-2023 Comment on above: 2#3. Unclassified (8 sources) 1st date of delivery Onset: 05-15-2006 06-15-2023 Unclassified (8 sources) 1st gestational age 0806-15-2023 Comment on above: 33. Unclassified (8 sources) Abortions, induced 06-15-2023 Comment on above: 0. Unclassified (8 sources) Abortions, spontaneous 06-15-2023 Comment on above: o. Unclassified (8 sources) Anesthesia (1st) 06-15-2023 Comment on above: spinal. Unclassified (8 sources) Delivery mode (1st) 06-15-2023 Comment on above: -elective. Unclassified (8 sources) Ectopics 06-15-2023 Comment on above: o. Unclassified (8 sources) Father of baby (1st) 06-15-2023 Comment on above: Harjeet. Unclassified (8 sources) Gender (1st) 06-15-2023 Comment on above: Male. Unclassified (8 sources) 06-15-2023 Comment on above: 2. Unclassified (8 sources) Labor complications (1st) 06-15-2023 Comment on above: None. Unclassified (8 sources) Maternal past medical history 06-15-2023 Comment on above: Caffeine use. Hypert ension. Seizure disorder. Tobacco use. Unclassified (8 sources) Number of fetuses (1st) 06-15-2023 Comment on above: 1. Unclassified (8 sources) Para 06-15-2023 Comment on above: 2. Unclassified (8 sources) Place of delivery (1st) 06-15-2023 Comment on above: [place]. Unclassified (8 sources) 06-15-2023 Comment on above: 2. Unclassified (8 sources) Stillbirths 06-15-2023 Comment on above: 0. Unclassified (8 sources) Term 06-15-2023 Comment on above: 0. Unclassified (16 sources) Unspecified Diagnosis 06-15-2023 Unclassified (8 sources) LAB DRAW - The labs drawn today include: CBC and other: Iron and TIBC. The lab was drawn from the right antecubital vein. The lab was ordered by Fanny MEJIA. 03-21-2020 Unclassified (8 sources) LAB DRAW - The labs drawn today include: CBC and other: Iron. The lab was drawn from the right antecubital vein. The lab was ordered by Fanny ODMO-Antonio. 11-23-2019 Urinary tract infections (16 sources) Urinary tract infection, site not specified 01-15-2011 Episodic Past or Other Problems Problem Classification Problem Date Documented Da te Episodic/Chronic Mood disorders (16 sources) Mood disorders 01-01-2019 Unclassified (8 sources) !Patient notification of lab results - JACKIE Hi. The test(s) that you had done were/was a heart monitor. Your tests showed the following abnormalities: one episode of tachycardia . You should call our office to schedule a referral and if you have any questions. Please follow up as scheduled. Note for !Patient notification of lab results : There were otherwise no abnormalities, the episodes you marked looked normal but there was some heart racing. Please call with questions. Thanks! 07-15-2023 Unclassified (8 sources) !Patient notification of lab results - JACKIE Hi. The test(s) that you had done were/was a TSH (thyroid). The results of your testing were normal . You should call our office if you have any questions. Please follow up as scheduled and let us know if your symptoms do not improve. Note for !Patient notification of lab results : Your thyroid was too low to consider treating to help with metabolism. Let me know if I can do anything else. Thanks! 06-17-2023 Unclassified (2 sources) WINDOWS ADMIN question 06-15-2023 Unclassified (2 sources) [ADDITIONAL REASON] Anxiety - The symptoms have been associated with palpitations (3 times a week, every week , for last 6 months. No SOB or chest pain), while the symptoms have not been associated with agitation, anorexia, breathlessness, carpopedal spasm, chest pain, conversion symptoms, diarrhea, dizziness, dry mouth, feeling of sadness, frequency of micturition, hallucinations, headache, heat intolerance, illusions, increased appetite, insomnia, lightheadedness, migraine, mutism, nausea, paresthesias, paralysis, personality change, retching, suicidal thoughts, sweating, tetany, tremors, vomiting or weight loss. Note for Anxiety: Patient needing refill on xanax, uses every couple weeks 06-15-2023 Unclassified (8 sources) Pelvic pain - The onset of the pelvic pain began gradually over time and has been occurring for 8 days. Note for Pelvic pain: Started a week ago Pelvic pain that is uncomfortable , not a cramping sensation but does burn and occasional spasm. No fever, chills or general achiness. No urinary urgency, burning, frequency or hesitation. Stools normal. Occasional bloating.. Starting at the same time was bilateral legs feeling uncomfortable, sometimes aching and going numb. 07-28-2022 Unclassified (8 sources) !Patient notification of lab results - JACKIE Hi. The test(s) that you had done were/was blood work. Your tests showed the following abnormalities: low iron (22) . You should call our office if you have any questions. Please note that we have included copies of your results and follow up as scheduled. Note for !Patient notification of lab results : The only other abnormal lab was calcium. It was slightly low at 8.4. You could chew some tums to bring this up or take a calcium supplement for a few days. This usually corrects the issue. Otherwise, I would restart the iron but you probably are ok to take it every other day as you are feeling better. Thanks! 06-24-2022 Unclassified (8 sources) Anxiety - The anxiety is characterized as apprehension. Note for Anxiety: Uses Xanax as needed. 06-23-2022 Unclassified (8 sources) Anxiety - Note for Anxiety: Pt would like to discuss a refill on Xanax. She uses very rarely, but work is stressful right now and she would like to have another RX. 02-11-2021 Unclassified (8 sources) !Patient notification of lab results - JACKIE Hi. The test(s) that you had done were/was blood work. Your tests were not to goal You should call our office to schedule a referral. Please follow up as scheduled and let us know if your symptoms do not improve. Note for !Patient notification of lab results : If you are still having symptoms I think we should have you see hematology. Your iron levels and iron saturation levels were low. Please call to let us know. Thanks! 03-22-2020 Unclassified (8 sources) !Patient notification of lab results - JACKIE Hi. The test(s) that you had done were/was blood work. The results of your testing were normal . You should call our office if you have any questions. Please follow up as scheduled. Note for !Patient notification of lab results : Your Vitamin B-12 level was 271. This is on the lower side of normal, but not near low enough to consider supplementation. The normal range is 160-1000. Continue the iron supplementation. Thanks! 12-20-2019 Unclassified (8 sources) Physical examination - The patient is here for a annual physical. Note for Physical examination: For Insurance. No longer depressed. Uses Xanax rarely. Sees ALCOHOLISM WORKER - Dr. Bailey 12-19-2019 Unclassified (8 sources) !Patient notification of lab results - JACKIE Hi. The test(s) that you had done were/was blood work. Your tests showed the following abnormalities: low iron . You should call our office to schedule a referral and if you have any questions. Please follow up as scheduled. Note for !Patient notification of lab results : Your blood counts have come up but your iron is still very low. We could refer you to see about doing iron infusions. Or, you could increase your iron supplementation. We can discuss this at your next appointment if you would like to take some time to think about it. Thanks! 11-24-2019 Unclassified (8 sources) Immunization - Immunizations discussed with patient/ parent: yes. Influenza immunization was given. An immunization information sheet was provided. 09-07-2019 Unclassified (8 sources) !Patient notification of lab results - JACKIE Hi. The test(s) that you had done were/was blood work. Your tests showed the following abnormalities: iron deficiency anemia . Please adjust your therapy by starting iron supplements. You should call our office if you have any questions. Please note that we have included copies of your results and follow up as scheduled. Note for !Patient notification of lab results : This may also explain some of your palpitations. We can prescribe the iron your you can buy it over the counter. We can recheck your labs in 3-4 months. 06-07-2019 Unclassified (8 sources) Laboratory Test Results, Follow up - Note for Discuss procedure results: Pt donated blood and her hemoglobin was low. She has had low hemoglobin in the past. Pt does feel tired, but has a new puppy at home so she is not sleeping like usual. 06-06-2019 Unclassified (8 sources) Anxiety - The onset of the anxiety has been acute and has been occurring in a persistent pattern for 2 months. The course has been increasing. The symptoms have been associated with insomnia. Note for Anxiety: pt c/o frequent crying spells. Job changes, Father with heart surgery. Took someone's xanax x 2 night for insomnia.. 11-16-2018 Unclassified (8 sources) !Patient notification of lab results - Merly. The test(s) that you had done were/was a CBC (checks for anemia and infection) and a pap test (screen for cervical cancer). The results of your testing were normal . Please continue your current medication/therapy. 06-12-2018 Unclassified (8 sources) Complete Physical - Female - The patient feels well with no complaints and has good energy level. Pap smear: Date: (07-11-16). Contraceptive history: The current method of contraception is tubal ligation. Nutrition: balanced diet and no supplemental vitamins & iron. Patient exercises daily (exercises 5 days a week). Patient sleeps 7 hours per night. The patient's libido is normal. Patient she reports that she performs a monthly self breast exam. 06-07-2018 Unclassified (8 sources) !Patient notification of lab results - Prakashnhaus. The test(s) that you had done were/was blood work (Your anemia is unchanged. There were also some iron studies which were to be performed (labs) but I don't see the results. Do you know if you had these drawn?). You should call our office if you have any questions. 01-27-2018 Unclassified (8 sources) Routine Check - Patient is here to review the medical problem(s) of hypertension. Note for Routine Check : did not start lisinopril. Here for exam. 01-10-2018 Unclassified (8 sources) !Patient notification of lab results - Prakashohaus. The test(s) that you had done were/was blood work (Your hemoglobin was 10.8 which is slightly low. This could cause some minor fatigue but is not likely causing dizziness. I would like to have you get some iron studies done to help determine the cause of the anemia. I will send the order directly to the hospital lab at [facility] so you can get this done at your convenience.). You should call our office if you have any questions. Please follow up as scheduled. 12-21-2017 Unclassified (8 sources) Dizziness - The onset of the dizziness has been acute and has been occurring in an intermittent pattern for months. The dizziness is characterized as lightheadedness and spinning of the environment. Note for Dizziness: pt has notied elevated BP. Here for exam. 12-20-2017 Unclassified (8 sources) !Patient notification of lab results - Merly. The test(s) that you had done were/was a urine culture. The results of your testing were negative (no infection) . Please let us know if your symptoms do not improve. 08-13-2017 Unclassified (8 sources) Urinary frequency - The onset of the urinary frequency has been sudden and has been occurring in a persistent pattern for 5 days. The course has been constant. The symptoms have been associated with suprapubic pain and urinary urgency, while the symptoms have not been associated with dysuria. 08-10-2017 Unclassified (8 sources) !Patient notification of lab results 1 - Merly. The test(s) that you had done were/was a pap test (screen for cervical cancer). The results of your testing were normal . 07-27-2016 Unclassified (8 sources) Physical examination - Note for Physical examination: Wellness for insurance thru 's employer. No form to fill out. 07-21-2016 Unclassified (8 sources) !Patient notification of lab results 1 - Carlos Alberto. The test(s) that you had done were/was an A1C (three month sugar average) and a CBC (checks for anemia and infection). The results of your testing were normal . You should call our office if you have any questions. 05-21-2014 Unclassified (8 sources) Anxiety - The symptoms have been associated with agitation. Note for Anxiety: Pt sold her house and moved in with her [id number]. She was prescribed Ativan in February, but pt felt it did not work, so she quit taking it. 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 02-08-2014 Unclassified (8 sources) !Patient notification of lab results 1 - Dr. Manriquez. Note for !Patient notification of lab results 1: CBC, CMP, etc. H pylori; All labs normal; No change in treatment plan. 03-20-2013 Unclassified (8 sources) Abdominal Pain, Female - Symptoms include abdominal pain. The pain is located in the epigastric area and mid abdominal area. The pain radiates to the back. The patient describes the pain as dull and aching. Onset was 3 day(s) ago. Symptoms are relieved by antacids (trying OTC stomach meds with relief sometimes.). Note for Abdominal pain: Here for exam. 03-19-2013 Unclassified (8 sources) !Patient notification of lab results 1 - Dr. Fernández. The test(s) that you had done were/was a CBC (checks for anemia and infection), a CMP (kidneys, liver, nutrition, sugar) and a TSH (thyroid). The results of your testing were normal . Please continue your current medication/therapy. 03-02-2012 Unclassified (8 sources) recheck - Note for recheck: Needs paper filled out for wellness for insurance 03-01-2012 Unclassified (8 sources) Rash - The onset of the rash has been gradual and has been occurring in a persistent pattern for 2 months. The course has been increasing. The rash is characterized as red and flat. The rash was first seen on the abdomen. There has been no progression. There has been no associated itching. 12-29-2011 Unclassified (8 sources) Post- visit - The patient is here for a visit following an emergent . pre-eclampsia - severe. The is in good health. The patient feels well with no complaints. none. none. has resumed. Sexual activity: using contraception (TL). The patient is requesting the following contraception method(s): tubal ligation. 08-18-2011 Unclassified (16 sources) OB VISIT 05-19-2011 Unclassified (8 sources) *Patient notification of lab results 1 - Dr. Fernández. The test(s) that you had done were/was a glucola. The results of your testing were normal . 04-15-2011 Unclassified (8 sources) OB VISIT - She needs a glucola done or drawn. 04-14-2011 Unclassified (8 sources) [ADDITIONAL REASON] cough - The cough has been occurring for 4 days. The cough is characterized as productive of mucopurulent sputum. The symptoms have been associated with runny nose (yellow). 04-14-2011 Unclassified (16 sources) OB VISIT - The patient is a multip and has an EDC of 07-24-11. 03-17-2011 Unclassified (8 sources) Patient notification of lab results - Dr. Sue. The test(s) that you had done were/was a repeat urine culture. The results of your testing were negative (no growth) . Please continue your current medication(s) and therapy and follow up as scheduled. 01-18-2011 Unclassified (8 sources) OB VISIT - The patient is a multip and has an EDC of 07-24-11. Note for OB VISIT: urine sent for C&S. 01-15-2011 Unclassified (8 sources) Patient notification of lab results - Dr. Fernández. The test(s) that you had done were/was a urine culture. For your age and medical condition your tests showed the following abnormalities: bacteria in urine . Please make the following adjustments to your therapy: Amoxicillin 500 mg three times daily x 10 days and repeat culture with follow up. 12-22-2010 Unclassified (8 sources) Patient notification of lab results - Dr. Fernández. The test(s) that you had done were/was blood work (and cultures). The results of your testing were normal 12-18-2010 Unclassified (8 sources) OB VISIT - The patient is a multip, has a LNMP of 10/17/2011 and has an EDC of 07/24/2011. 12-16-2010 Unclassified (8 sources) Foot pain - The onset of the pain has been sudden and has been occurring in a persistent (SUDDEN ONSET OF PAIN IN LEFT SOLE) pattern for 24 hours. The course has been increasing. The pain is described as moderate. 11-13-2010 Unclassified (7 sources) Anxiety - Note for Anxiety: Feeling good right now. Has an episode of anxiety usually weekly and usually at work. 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 01-11-2024 Unclassified (6 sources) Anxiety - The symptoms have been associated with palpitations (3 times a week, every week , for last 6 months. No SOB or chest pain), while the symptoms have not been associated with agitation, anorexia, breathlessness, carpopedal spasm, chest pain, conversion symptoms, diarrhea, dizziness, dry mouth, feeling of sadness, frequency of micturition, hallucinations, headache, heat intolerance, illusions, increased appetite, insomnia, lightheadedness, migraine, mutism, nausea, paresthesias, paralysis, personality change, retching, suicidal thoughts, sweating, tetany, tremors, vomiting or weight loss. 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 Note for Anxiety: It is worse when around a lot of people. 11-21-2024 Unclassified (3 sources) [ADDITIONAL REASON] Rash - The rash has been occurring for 3 days. The rash is characterized as red. Note for Rash: seen it a couple of days ago. Size of a quarter, no itch, no pain. On L side. Used anti-fungal. Did not help. 11-21-2024 Results Test Name Value Interpretation Reference Range Facility No Panel Informationon 11-21 [facility].; [facility] CenterMarketShareUnity[facility] Luke'SPromoteU; [facility] CenterTeledata Networks [facility] [employer] [facility] FoundationMarketShare; [facility] CenterTeled[facility] Networks [facility] [employer] [facility] FoundationMarketShare; [facility] [employer] [facility] FoundationMarketShareHop[facility] [employer] [facility] FoundationMarketShare.; [facility] [employer] [facility] FoundationMarketShare. 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 Required: No Is patient in pain?: No Allergies No Known Allergies Allergy (Verified 07/25/24 14:58) Medications ???Medication ???Instructions ???Recorded ???Confirmed ???Type acetaminophen 325 mg capsule 325 mg PO ONCE PRN pain 08/01/23 07/25/24 History (Tylenol) alprazolam 0.25 mg tablet (Xanax) 0.25 mg PO QHS PRN anxiety 08/01/23 07/25/24 History ibuprofen 300 mg tablet 600 mg PO Q6H PRN pain 08/01/23 07/25/24 History meclizine 12.5 mg tablet 12.5 mg PO TID PRN dizziness 08/01/23 07/25/24 History ascorbic acid (vitamin C) 500 mg 1 g PO MOWEFR 09/20/23 07/25/24 History tablet (C-500) vitamin B complex 1 cap PO MOWEFR 09/20/23 07/25/24 History Is last menstrual period known: No Post menopausal: No Patient : No : No Control Method: Hyst PFSH Medical History Wears contact lenses Wears glasses Depression Anxiety Alcohol use Anemia Syncope Seizures Shortness of breath on exertion Former smoker History of edema History of normal Holter exam Heart palpitations Hypertension Surgical History S/P laparoscopic assisted vaginal hysterectomy (LAVH) History of laparoscopic cholecystectomy H/O bilateral salpingectomy History of endometrial ablation Hx of section Social History number of children: 2 current occupational status: employed 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 Date Name GA/Weeks Outcome Route Bth Weight Gen Labor Lgth Anesthesia Del Locatn Provider FOB Unknown Tomas live - Unknown Nilda live - HPI Encounter for routine gynecological examination Details: MARE FRANCISCO is a 39 year old who presents for annual exam. Last PAP: NA History of abnormal PAP: no Last mammogram: 07/2024 History of abnormal mammogram: no Colon cancer screening: age 44 Other preventative health care screenings: Wesley VELASCO Const Constitutional: Denies fatigue, weight gain or weight loss Cardio Card: Denies chest pain Resp Resp: Denies cough or dyspnea on exertion GI GI: Denies abdominal pain, bloating, change in stool character, constipation or vomiting : Reports as per HPI; Denies difficulty voiding, pelvic pain, urinary frequency, urinary incontinence, urinary urgency, vaginal discharge or vaginal pruritus Exam Const General: cooperative, healthy appearing, no acute distress and well developed Orientation: alert, oriented to person and oriented to place [facility] Head: normal to inspection Neck Neck: normal visual inspection Thyroid: thyroid normal Lymphatic: no lymphadenopathy noted Chest Breast inspection: normal inspection of the breasts and normal inspection of the axillae Breast palpation: normal palpation of the breasts, normal palpation of the axillae and no axillary lymphadenopathy Resp Effort Inspection: normal respiratory effort GI Palpation: soft, no masses and nontender Rectal Exam: deferred External Female Exam: normal external appearance and normal appearance of the urethra Urethra: normal appearance of the urethra and normal palpation Speculum Exam - Vagina: normal appearance of the vagina and normal vaginal discharge Speculum Exam - Cervix: absent Bimanual Exam- Vagina Uterus: normal bimanual exam and uterus absent Bimanual Exam- Adnexa, other: normal adnexae, no masses, normal and non-tender Pelvic Support: normal Neuro General: patient alert and patient oriented x3 Psych Affect: normal affect Coding Level of Care Code Off vis,est,prev 40-64yrs Diagnoses Encounter for gynecological examination without abnormal finding Z01.419 Gynecologi (more content not included)... Normal [facility] No Panel InformationOrdered By: HARJEET CARCAMO on 07-18-2024 [employer]; [place] [employer] [facility] [employer] Work Phone: No Panel Informationon 01-10 [facility] [employer]; [facility] CenterVoolgo Nem[facility] FoundationPromoteU No Panel Informationon 11-08 [facility] [employer].; [facility] [employer] Laboratory - Hematology and Cell countson 09-28-2023 Erythrocyte distribution width (RBC) [Ratio] 11.8 % Normal 11.6 - 14.6 [employer]; [facility]ITALOpenbuilds [facility] [employer] Work Phone: Hematocrit (Bld) [Volume fraction] 37.7 % Normal 37 - 47 [facility] [employer]; [facility] HospitalVoolgo [facility] FoundationPromoteU Work Phone: Hemoglobin (Bld) [Mass/Vol] 12.3 g/dL Normal 12.0 - 15.0 g/dL [facility]; [facility]eled[facility] Work Phone: MCH (RBC) [Entitic mass] 31.1 pg Normal 27.0 - 32.0 pg [facility]; [facility] Work Phone: MCHC (RBC) [Mass/Vol] 32.6 g/dL Normal 32 - 3 6 g/dL [facility]; [facility] Work Phone: MCV (RBC) [Entitic vol] 95.4 fL Normal 81 - 99 fL [facility]; [facility] Work Phone: Platelet mean volume (Bld) [Entitic vol] 8.5 fL Normal 6.2 - 12.0 fL [facility]; [facility] Work Phone: Platelets (Bld) [#/Vol] 221 10*3/uL Normal 150 - 450 K/mm3 [facility]; [facility] Work Phone: RBC (Bld) [#/Vol] 3.95 10*6/uL Abnormal 4.2 - 5.4 {M/mm3} [facility]; [facility] Work Phone: WBC (Bld) [#/Vol] 9.9 10*3/uL Normal 4.4 - 11.0 K/mm3 [facility]; [facility] Work Phone: No Panel Informationon 09-28 RDW SD 40.7 fL Normal 35.1 - 43.9 fL [facility]; [facility] CenterAvocado™ Work Phone: Laboratory - Chemistry and C hemistry - challengeon 09-27-2023 Beta HCG ( test) Ql (U) Negative Normal [facility]; [facility] Work Phone: Magnesium [Mass/Vol] 90 mg/dL Normal 74 - 10 6 mg/dL [facility]; [facility] Work Phone: No Panel Informationon 09-27 Surgery Specimen Level V See Note Normal [facility]; [facility] Work Phone: Laboratory - Blood bankon ABO and Rh group Nom (Bld) Blood group A Rh(D) positive Normal [facility]; [facility] Work Phone: Laboratory - Chemistry and C hemistry - challengeon 09-21-2023 Chloride [Moles/Vol] 108 mmol/L Abnormal 98 - 10 7 mmol/L [facility]; [facility] Work Phone: CO2 [Moles/Vol] 26.0 mmol/L Normal 21.0 - 32.0 mmol/L [facility]; [facility] Work Phone: Creatinine [Mass/Vol] 0.93 mg/dL Normal 0.55 - 1.02 mg/dL [facility]; [facility] Work Phone: GFR/1.73 sq M.predicted among non-blacks MDRD (S/P/Bld) [Vol rate/Area] 71 mL/min/{1.73_m2} Normal [facility]; [facility] Work Phone: Glucose [Mass/Vol] 115 mg/dL Abnormal 74 - 106 mg/dL [facility]; [facility] Work Phone: Magnesium [Mass/Vol] 8.9 mg/dL Normal 8.5 - 1 0.1 mg/dL [facility]; [facility] Work Phone: Magnesium [Mass/Vol] 2.2 mg/dL Normal 1.6 - 2 .6 mg/dL [facility]; [facility] Work Phone: Potassium [Moles/Vol] 3.6 mmol/L Normal 3.5 - 5.1 mmol/L [facility]; [facility] Work Phone: Sodium [Moles/Vol] 138 mmol/L Normal 136 - 145 mmol/L [facility]; [facility] Work Phone: Urea nitrogen [Mass/Vol] 10 mg/dL Normal 7 - 18 mg/dL [facility]; [facility] Work Phone: Laboratory - Hematology and Cell counts 09-21-2023 Erythrocyte distribution width (RBC) [Ratio] 11.9 % Normal 11.6 - 14.6 [facility]; [facility] Work Phone: Hematocrit (Bld) [Volume fraction] 40.3 % Normal 37 - 47 [facility]; [facility] Work Phone: Hemoglobin (Bld) [Mass/Vol] 13.4 g/dL Normal 12.0 - 15.0 g/dL [facility]; [facility] Work Phone: MCH (RBC) [Entitic mass] 31.2 pg Normal 27.0 - 32.0 pg [facility]; [facility] Work Phone: MCHC (RBC) [Mass/Vol] 33.3 g/dL Normal 32 - 3 6 g/dL [facility]; [facility] Work Phone: MCV (RBC) [Entitic vol] 93.9 fL Normal 81 - 99 fL [facility]; [facility] Work Phone: Platelet mean volume (Bld) [Entitic vol] 8.8 fL Normal 6.2 - 12.0 fL [facility]; [facility] Work Phone: Platelets (Bld) [#/Vol] 233 10*3/uL Normal 150 - 450 K/mm3 [facility]; [facility] Work Phone: RBC (Bld) [#/Vol] 4.29 10*6/uL Normal 4.2 - 5.4 {M/mm3} [facility]; [facility] Work Phone: WBC (Bld) [#/Vol] 7.0 10*3/uL Normal 4.4 - 11.0 K/mm3 [facility]; [facility] Work Phone: No Panel Informationon 09-21 Ab SCREEN GEL Negative Normal [facility]; [facility] Work Phone: BUN/CRE 10.7 {RATIO} Normal 10 - 20 {RATIO} [facility] HospitalMarketShare.; [place] [employer] [facility] [employer] Nemours FoundationTeledata Networks Inc. Work Phone: EST GFR - AA 86 mL/min Normal [facility] [employer] [facility] FoundationMarketShare.; [facility] [employer] [facility] FoundationTeledata Networks Inc. Work Phone: GAP 4 Abnormal 5 - 15 [facility] [employer] [facility] FoundationMarketShare.; [place] [employer] [facility] [employer] [facility], [employer]. Work Phone: RDW SD 41.2 fL Normal 35.1 - 43.9 fL [facility]Voolgo [facility] FoundationMarketShare.; [employer] [place] [employer] [facility] [employer] [facility] FoundationMarketShare. Work Phone: URINE CULTURE [CCL]on 2022 Bacteria identified Cx Nom (U) URCUL See Results Below See Below CULTURE, URINE NORMAL UROGENITAL ADDIE <10,000 CFU/ml Normal urogenital addie SOURCE: URINE [facility] [address] [place] [address] José Miguel Gomez III, M.D. [id number] SEND TO IC NO Normal [facility] Comment on above: Performed By: #### 2 [id number] #### [facility],[address] [place] [address] Bacteria Ur Culton 3 Bacteria identified Cx Nom (U) ORGANISM ID: 1 <10,000 CFU/ml Normal urogenital addie Normal [facility] Comment on above: Performed By: #### 6 30-4 #### [facility] CLIA [id number] [address] [place] [address] [place] Laboratory - Microbiology an d Antimicrobial susceptibilityon 08-04-2023 Bacteria identified Cx Nom (U) See Note Normal [facility] [employer] [facility] FoundationMarketShare.; [employer] [place] [employer] [facility] [employer] [facility], [employer]. Work Phone: Laboratory - Chemistry and C hemistry - challengeon 06-15-2023 TSH Qn 1.046 m[IU]/L Normal 0.550 - 4.780 m[iU]/mL [facility]Market[facility].; [facility] HospitalTeled[facility] No Panel Informationon 08-19 [facility] TEST Normal [facility]; [facility] Work Phone: Bacteria Ur Culton 2 Bacteria identified Cx Nom (U) ORGANISM ID: 1 10,000 -<50,000 CFU/ml Normal urogenital addie Normal [facility] Comment on above: Performed By: #### 6 30-4 #### [facility] CLIA [id number] [address] [place] [address] [place] Laboratory - Chemistry and C hemistry - challengeon 08-16-2022 Albumin [Mass/Vol] 3.2 g/dL Abnormal 3.4 - 5.0 g/dL [facility].; [facility] HospitalT[facility] Networks [facility]. Work Phone: Albumin [Mass/Vol] 0.9 g/dL Normal 0.9 - 1.6 [facility] HospitalTeledata Networks [facility].; [facility], [facility]. Work Phone: ALT [Catalytic activity/Vol] 26 U/L Normal 14 - 59 U/L [facility]; [facility] HospitalTeled[facility] Networks [facility]. Work Phone: Anion gap [Moles/Vol] 11 mmol/L Normal 10 - 2 0 mmol/L [facility]; [facility]. Work Phone: AST [Catalytic activity/Vol] 13 U/L Normal 13 - 39 U/L [facility].; [facility]. Work Phone: Bilirubin [Mass/Vol] 0.3 mg/dL Normal 0.2 - 1 .0 mg/dL [facility]; [facility] Work Phone: Bilirubin [Mass/Vol] Negative Normal [facility]; [facility] Work Phone: Calcium [Mass/Vol] 8.1 mg/dL Abnormal 8.5 - 10. 1 mg/dL [facility]; [facility] Work Phone: Chloride [Moles/Vol] 104 mmol/L Normal 98 - 10 7 mmol/L [facility]; [facility] Work Phone: CO2 [Moles/Vol] 25.5 mmol/L Normal 21.0 - 32.0 mmol/L [facility]; [facility] Work Phone: Creatinine [Mass/Vol] 1.10 mg/dL Abnormal 0.55 - 1.02 mg/dL [facility]; [facility] Work Phone: GFR/1.73 sq M.predicted among blacks MDRD (S/P/Bld) [Vol rate/Area] mL/min/{1.73_m2} Normal 60 - 999 {ML/MINUTE} [facility]; [facility] Work Phone: GFR/1.73 sq M.predicted MDRD (S/P/Bld) [Vol rate/Area] 56 {ML/MINUTE} Abnormal 60 - 999 {ML/MINUTE} [facility]. Work Phone: Globulin (S) [Mass/Vol] 3.6 g/dL Normal 1.5 - 3.8 g/dL [facility]; [facility] Work Phone: Glucose [Mass/Vol] 122 mg/dL Abnormal 74 - 106 mg/dL [facility]; [facility] Work Phone: Glucose [Mass/Vol] NORM Normal [facility]; [facility] Work Phone: Lipase [Catalytic activity/Vol] 67.0 U/L Abnormal 73.0 - 393 U/L [facility]; [facility] Work Phone: pH (Bld) 7 [pH] Normal [facility]; [facility] Work Phone: Potassium [Moles/Vol] 3.4 mmol/L Abnormal 3.5 - 5.1 mmol/L [facility]; [facility] Work Phone: Protein [Mass/Vol] 6.8 g/dL Normal 6.4 - 8.2 g/dL [facility]; [facility] Work Phone: Protein [Mass/Vol] 15 g/dL Abnormal [facility] Work Phone: Sodium [Moles/Vol] 137 mmol/L Normal 136 - 145 mmol/L [facility]; [facility] Work Phone: Urea nitrogen [Mass/Vol] 13 mg/dL Normal 7 - 18 mg/dL [facility]; [facility] Work Phone: Urea nitrogen/Creatinine [Mass ratio] 12 {ratio} Normal 0 - 30 {ratio} [facility]; [facility] Work Phone: Laboratory - Coagulationon 1 INR Coag (PPP) [Relative time] 1.0 {INR} Normal 0.8 - 1.2 [facility]; [facility] Work Phone: PT Coag (Bld) [Time] 11.5 s Normal 9.3 - 1 4.1 {sec} [facility]; [facility] Work Phone: Laboratory - Hematology and Cell countson 08-16-2022 Basophils (Bld) [#/Vol] 0.00 {x10EE3/UL} Normal 0.00 - 0.10 {x10EE3/UL} [facility]; [facility] Work Phone: Basophils/100 WBC (Bld) 0.9 % Normal 0.0 - 2.0 % [facility]; [facility] Work Phone: Eosinophils (Bld) [#/Vol] 0.10 {x10EE3/UL} Normal 0.00 - 0.50 {x10EE3/UL} [facility]; [facility] Work Phone: Eosinophils/100 WBC (Bld) 1.7 % Normal 0.0 - 7.0 % [facility]; [facility] Work Phone: Erythrocyte distribution width (RBC) [Ratio] 14.3 % Normal 12.0 - 15.6 % [facility]; [facility] Work Phone: Hematocrit (Bld) [Volume fraction] 37.7 % Normal 34.0 - 46.0 % [facility]; [facility] Work Phone: Hemoglobin (Bld) [Mass/Vol] 12.7 g/dL Normal 12.0 - 16.0 g/dL [facility]; [facility] Work Phone: Lymphocytes (Bld) [#/Vol] 1.20 {x10EE3/UL} Normal 0.80 - 2.80 {x10EE3/UL} [facility]; [facility] Work Phone: Lymphocytes/100 WBC (Bld) 23.2 % Normal 20.0 - 45.0 % [facility]; [facility] Work Phone: MCH (RBC) [Entitic mass] 30 pg Normal 27 - 33 pg [facility]; [facility] Work Phone: MCHC (RBC) [Mass/Vol] 34 {X10_3} Normal 32 - 3 6 {X10_3} [facility]; [facility] Work Phone: MCV (RBC) [Entitic vol] 91 fL Normal 80 - 99 fL [facility]; [facility] Work Phone: Monocytes (Bld) [#/Vol] 0.30 {x10EE3/UL} Normal 0.20 - 1.00 {x10EE3/UL} [facility]; [facility] Work Phone: Monocytes/100 WBC (Bld) 4.8 % Normal 0.0 - 10.0 % [facility]; [facility] Work Phone: Morphology Aubrey (Bld) [Interp] N/A Normal [facility]; [facility] Work Phone: Neutrophils (Bld) [#/Vol] 3.60 {x10EE3/UL} Normal 1.50 - 7.10 {x10EE3/UL} [facility]; [facility] Work Phone: Neutrophils/100 WBC (Bld) 69.4 % Normal 46.0 - 76.0 % [facility]; [facility] Work Phone: Platelet mean volume (Bld) [Entitic vol] 6.8 fL Normal 6.6 - 10.5 fL [facility]; [facility] Work Phone: Platelets (Bld) [#/Vol] 220 {x10EE3/UL} Normal 150 - 450 {x10EE3/UL} [facility]; [facility] Work Phone: RBC (Bld) [#/Vol] 4.17 {x_10EE6/UL} Normal 4.10 - 5.30 {x_10EE6/UL } [facility]; [facility] Work Phone: WBC (Bld) [#/Vol] 5.2 {x_10EE3/UL} Normal 4.5 - 10.8 {x_10EE3/UL } [facility]; [facility] Work Phone: WBC (Bld) [#/Vol] 25 10*3/uL Abnormal [facility]; [facility] Work Phone: Laboratory - Microbiology an d Antimicrobial susceptibilityon 08-16-2022 Bacteria identified Cx Nom (Unsp spec) 1+ Normal [facility].; [facility]. Work Phone: Laboratory - Specimen inform ationon 08-16-2022 Clarity (U) clear Normal [facility].; [facility]. Work Phone: Color (U) p.yel Normal [facility].; [facility]. Work Phone: Specimen type Nom (Spec) UNSPECIFIED Normal [facility].; [facility]. Work Phone: Laboratory - Urinalysison Crystals LM Nom (Urine sed) NONE Normal [facility].; [facility]. Work Phone: Nitrite Ql (U) Negative Normal [facility].; [facility]. Work Phone: Yeast LM Ql (Urine sed) NONE Normal [facility].; [facility]. Work Phone: No Panel Informationon 08-16 AGE 37 {years} Normal [facility].; [facility]. Work Phone: ALK PHOS 80 U/L Normal 46 - 116 U/L [facility] [employer] Foundation[employer].; [facility] [employer] Foundation[employer]. Work Phone: Amorphous NONE Normal [facility].; [facility] [employer]. Work Phone: Blood 250 Abnormal [facility] [employer] FoundationMarket[employer].; [facility]ITALOpen[facility] [employer] FoundationMarket[employer]. Work Phone: Casts NONE Normal [facility] HospitalMarket[facility].; [employer] [facility] [employer] FoundationMarket[employer]. Work Phone: CBC + DIFF Normal [facility].; [facility]Market[facility]. Work Phone: CMP with eGFR Normal [facility]Market[facility].; [employer] [place] [employer] [facility] [employer] Foundation[employer]. Work Phone: Epi Cells OCC Normal [facility].; [facility] [employer]. Work Phone: INTERNAL QC PASS Normal [facility] [employer] Foundation[employer].; [facility] [employer]. Work Phone: Ketone Negative [facility] Center[facility].; [employer] [facility] [employer]. Work Phone: MANUAL DIFF N/A Normal [facility] [employer].; [employer] [facility] [employer]. Work Phone: Microscopic SEE BELOW Normal [facility] [employer].; [employer] [facility] [employer]. Work Phone: Mucous NONE Normal [facility] [employer].; [employer] [facility] [employer]. Work Phone: Observation duration YES Normal [facility] [employer] Foundation[employer].; [employer] [place] [employer] [facility] [employer] Foundation[employer]. Work Phone: SER Negative Normal [facility] [employer] FoundationMarket[employer].; [employer] [facility] [employer]. Work Phone: PROTHROMBIN TIME AND INR [employer] [facility] [employer] FoundationMarket[employer].; [employer] [facility] [employer] FoundationMarket[employer]. Work Phone: Rbc 10-15 Normal 0 - 3 [facility]Voolgo [facility] FoundationMarketShare.; [employer] [facility] [employer] FoundationMarketShare. Work Phone: Sp [place] 1.010 Normal [facility].; [facility], [facility]. Work Phone: Urobilinog 1 Abnormal [facility].; [facility], [facility]. Work Phone: Wbc 1-5 Normal 0 - 5 [facility], [facility].; [facility] [employer] Work Phone: Laboratory - Chemistry and C hemistry - challengeon 07-28-2022 Bilirubin [Mass/Vol] Negative Normal [facility], [facility].; [facility], [facility]. Bilirubin Ql (U) Negative Normal [facility].; [facility] Glucose [Mass/Vol] NORM Normal [facility], [facility].; [facility] Ketones Ql (U) Negative Normal [facility].; [facility] pH (Bld) 6 [pH] Normal [facility].; [facility] pH (U) 6.0 [pH] Normal [facility].; [facility] Protein [Mass/Vol] Negative Normal [facility], [facility].; [facility] Specific gravity (U) [Rel density] 1.015 Normal [facility].; [facility] Laboratory - Hematology and Cell countson 07-28-2022 Hemoglobin Ql (U) Negative Normal [facility], [facility].; [facility] WBC (Bld) [#/Vol] Negative Normal [facility], Inc.; [facility] Laboratory - Microbiology an d Antimicrobial susceptibilityon 07-28-2022 Bacteria identified Cx Nom (U) See Note Normal [facility], [facility].; [facility] Bacteria identified Cx Nom (Unsp spec) NONE Normal [facility] HospitalT[facility] Networks Inc.; [employer] [facility], [facility] Laboratory - Specimen inform ationon 07-28-2022 Appearance (U) CLOUDY Abnormal [facility] [employer], Inc.; [facility]ITALOpen[facility], Inc. Clarity (U) clear Normal [facility] [employer] FoundationTeledata Networks Inc.; [employer] [facility], Inc. Color (U) YELLOW Normal [facility] [employer] [facility] FoundationTeledata Networks Inc.; [employer] [facility] [employer], Inc. Color (U) p.yel Normal [facility] [employer] FoundationMarketShare.; [employer] [facility] [employer], Inc. Specimen type Nom (Spec) Clean catch Normal [facility] [employer] FoundationMarket[employer].; [employer] [facility] [employer], Inc. Laboratory - Urinalysison Crystals LM Nom (Urine sed) NONE Normal [facility] Networks Inc.; [facility] AnalyticsO[facility] [employer], Inc. Glucose Test strip (U) [Mass/Vol] Negative Normal [facility] [employer] FoundationMarketShare.; [facility] AnalyticsO[facility] [employer], Inc. Leukocyte esterase Test strip Ql (U) Negative Normal [facility] [employer] FoundationMarket[employer].; [employer] [facility] [employer], Inc. Nitrite Ql (U) Negative Normal [facility] [employer], Inc.; [employer] [facility] [employer], Inc. Protein Ql (U) Negative Normal [facility] [employer] Nem[employer] FoundationTeledata Networks Inc.; [employer] [facility] [employer] [facility], Inc. Yeast LM Ql (Urine sed) NONE Normal [facility] [employer] Nem[employer] FoundationTeledata Networks Inc.; [employer] [facility] [employer], Inc. No Panel Informationon 07-28 Amorphous NONE Normal [facility] [employer] Nemours FoundationTeledata Networks Inc.; [employer] [facility] [employer], Inc. Blood Negative Normal [facility] [employer], [employer].; [employer] [facility] [employer], Inc. Casts NONE Normal [facility] HospitalVoolgo [facility], Inc.; [employer] [facility] [employer], Inc. Epi Cells NONE Normal [facility] [employer], Inc.; [facility], [facility]. ERROR DUE TO TECH ERROR Normal [facility].; [facility]. Ketone Negative Normal [facility].; [facility]. Microscopic NOT INDICATED Normal [facility].; [facility], [facility]. Mucous NONE Normal [facility].; [facility], [facility]. Rbc NONE Normal 0 - 3 [facility].; [facility], [facility]. Sp [place] 1.005 Abnormal [facility].; [facility]. UA - ODOR Negative Normal [facility].; [facility], [facility]. UA - UROBILIGEN 0.2 Normal [facility].; [facility], [facility]. Urobilinog NORM Normal [facility].; [facility], [facility]. Wbc NONE Normal 0 - 5 [facility].; [facility], [facility]. Laboratory - Chemistry and C hemistry - challengeon 03-21-2020 Iron [Mass/Vol] 45 ug/dL Abnormal 50 - 170 ug/dL [facility].; [facility], [facility]. Iron binding capacity [Mass/Vol] 396 ug/dL Normal 250 - 450 ug/dL [facility].; [facility], [facility]. Laboratory - Drug toxicology on 03-21-2020 Vancomycin peak [Mass/Vol] 351 ug/dL Normal 155 - 355 ug/dL [facility].; [facility], [facility]. Laboratory - Hematology and Cell countson 03-21-2020 Basophils (Bld) [#/Vol] 0.00 {x10EE3/UL} Normal 0.00 - 0.10 {x10EE3/UL} [facility].; [facility], Inc. Basophils/100 WBC (Bld) 0.6 % Normal 0.0 - 2.0 % [facility].; [facility] CBC panel Auto (Bld) Normal [facility].; [facility] Work Phone: Eosinophils (Bld) [#/Vol] 0.10 {x10EE3/UL} Normal 0.00 - 0.50 {x10EE3/UL} [facility].; [facility], [facility] Eosinophils/100 WBC (Bld) 1.7 % Normal 0.0 - 7.0 % [facility].; [facility] Erythrocyte distribution width (RBC) [Ratio] 13.8 % Normal 12.0 - 15.6 % [facility].; [facility] Erythrocyte distribution width (RBC) [Ratio] 13.6 % Normal 12.0 - 15.6 % [facility].; [facility], [facility] Work Phone: Hematocrit (Bld) [Volume fraction] 38.2 % Normal 34.0 - 46.0 % [facility].; [facility], [facility] Hematocrit (Bld) [Volume fraction] 39.6 % Normal 34.0 - 46.0 % [facility].; [facility] Work Phone: Hemoglobin (Bld) [Mass/Vol] 13.2 g/dL Normal 12.0 - 16.0 g/dL [facility].; [facility], [facility] Hemoglobin (Bld) [Mass/Vol] 13.5 g/dL Normal 12.0 - 16.0 g/dL [facility].; [facility], [facility] Work Phone: Lymphocytes (Bld) [#/Vol] 2.40 {x10EE3/UL} Normal 0.80 - 2.80 {x10EE3/UL} [facility] [employer] FoundationMarket[employer].; [facility] CenterMarketShare Lymphocytes/100 WBC (Bld) 36.7 % Normal 20.0 - 45.0 % [facility].; [facility], [facility] MCH (RBC) [Entitic mass] 31 pg Normal 27 - 33 pg [facility] [employer] FoundationMarket[employer].; [facility], [facility] MCHC (RBC) [Mass/Vol] 35 {X10_3} Normal 32 - 3 6 {X10_3} [facility].; [facility], [facility] MCHC (RBC) [Mass/Vol] 34 {X10_3} Normal 32 - 3 6 {X10_3} [facility] [employer] FoundationMarket[employer].; [facility] HOSPITALAPTwaterOchsner [facility] [employer] Foundation[employer] Work Phone: MCV (RBC) [Entitic vol] 91 fL Normal 80 - 99 fL [facility] [employer] FoundationMarket[employer].; [facility], [facility]. Monocytes (Bld) [#/Vol] 0.20 {x10EE3/UL} Normal 0.20 - 1.00 {x10EE3/UL} [facility] [employer] FoundationMarket[employer].; [facility], [facility]. Monocytes/100 WBC (Bld) 3.7 % Normal 0.0 - 10.0 % [facility] [employer] FoundationMarket[employer].; [facility] [employer] [facility] [facility], [facility] Morphology Aubrey (Bld) [Interp] N/A Normal [facility] [employer] FoundationMarket[employer].; [facility], [facility]. Neutrophils (Bld) [#/Vol] 3.80 {x10EE3/UL} Normal 1.50 - 7.10 {x10EE3/UL} [facility] [employer] FoundationMarket[employer].; [facility] [employer], [facility]. Neutrophils/100 WBC (Bld) 57.3 % Normal 46.0 - 76.0 % [facility] [employer] FoundationMarket[employer].; [facility] [employer], [employer] Platelet mean volume (Bld) [Entitic vol] 6.9 fL Normal 6.6 - 10.5 fL [facility] HospitalMarket[facility].; [facility] CenterT[facility] Platelet mean volume (Bld) [Entitic vol] 7.0 fL Normal 6.6 - 10.5 fL [facility].; [facility] Work Phone: Platelets (Bld) [#/Vol] 286 {x10EE3/UL} Normal 150 - 450 {x10EE3/UL} [facility]Market[facility].; [facility] CenterT[facility] Networks [facility]. Platelets (Bld) [#/Vol] 294 {x10EE3/UL} Normal 150 - 450 {x10EE3/UL} [facility] [employer] FoundationMarket[employer].; [facility]. Work Phone: RBC (Bld) [#/Vol] 4.21 {x_10EE6/UL} Normal 4.10 - 5.30 {x_10EE6/UL } [facility].; [facility], [facility]. RBC (Bld) [#/Vol] 4.35 {x_10EE6/UL} Normal 4.10 - 5.30 {x_10EE6/UL } [facility].; [facility], [employer]. Work Phone: WBC (Bld) [#/Vol] 6.6 {x_10EE3/UL} Normal 4.5 - 10.8 {x_10EE3/UL } [facility] [employer] FoundationMarket[employer].; [facility] CenterT[facility] Networks [facility]. No Panel Informationon 03-21 CBC + DIFF Normal [facility] [employer] [facility] FoundationT[employer] Networks [facility].; [facility] CenterT[facility] Networks [facility] MANUAL DIFF N/A Normal [facility] [employer] Foundation[employer].; [facility], [facility] Sat% 11 % Abnormal 20 - 50 % [facility] [employer] FoundationMarket[employer].; [facility] [employer] FoundationMarketShare. Laboratory - Chemistry and C hemistry - challengeon 12-19-2019 Cobalamin (Vitamin B12) [Mass/Vol] 271 pg/mL Normal 180 - 914 pg/mL [facility].; [facility] [facility], [facility]. Laboratory - Chemistry and C hemistry - challengeon 11-23-2019 Iron [Mass/Vol] 28 ug/dL Abnormal 50 - 170 ug/dL [facility].; [facility], [facility]. Laboratory - Hematology and Cell countson 11-23-2019 Basophils (Bld) [#/Vol] 0.00 {x10EE3/UL} Normal 0.00 - 0.10 {x10EE3/UL} [facility].; [facility], [facility]. Basophils/100 WBC (Bld) 0.5 % Normal 0.0 - 2.0 % [facility].; [facility], [facility]. Eosinophils (Bld) [#/Vol] 0.10 {x10EE3/UL} Normal 0.00 - 0.50 {x10EE3/UL} [facility].; [facility], [facility]. Eosinophils/100 WBC (Bld) 1.1 % Normal 0.0 - 7.0 % [facility].; [facility], [facility]. Erythrocyte distribution width (RBC) [Ratio] 15.5 % Normal 12.0 - 15.6 % [facility].; [facility], [facility]. Hematocrit (Bld) [Volume fraction] 37.9 % Normal 34.0 - 46.0 % [facility].; [facility], [facility]. Hemoglobin (Bld) [Mass/Vol] 12.4 g/dL Normal 12.0 - 16.0 g/dL [facility].; [facility], [facility]. Lymphocytes (Bld) [#/Vol] 2.40 {x10EE3/UL} Normal 0.80 - 2.80 {x10EE3/UL} [facility], [facility].; [facility], [facility]. Lymphocytes/100 WBC (Bld) 35.0 % Normal 20.0 - 45.0 % [facility].; [facility] MCH (RBC) [Entitic mass] 28 pg Normal 27 - 33 pg [facility].; [facility], [facility]. MCHC (RBC) [Mass/Vol] 33 {X10_3} Normal 32 - 3 6 {X10_3} [facility], [facility].; [facility] MCV (RBC) [Entitic vol] 86 fL Normal 80 - 99 fL [facility].; [facility], [facility]. Monocytes (Bld) [#/Vol] 0.30 {x10EE3/UL} Normal 0.20 - 1.00 {x10EE3/UL} [facility], [facility].; [facility], [facility]. Monocytes/100 WBC (Bld) 3.7 % Normal 0.0 - 10.0 % [facility].; [facility], [facility]. Morphology Aubrey (Bld) [Interp] N/A Normal [facility] [employer] [facility].; [facility], [facility]. Neutrophils (Bld) [#/Vol] 4.10 {x10EE3/UL} Normal 1.50 - 7.10 {x10EE3/UL} [facility], [facility].; [facility], [facility]. Neutrophils/100 WBC (Bld) 59.7 % Normal 46.0 - 76.0 % [facility].; [facility], [facility]. Platelet mean volume (Bld) [Entitic vol] 7.1 fL Normal 6.6 - 10.5 fL [facility] [employer] [facility].; [facility], [facility]. Platelets (Bld) [#/Vol] 290 {x10EE3/UL} Normal 150 - 450 {x10EE3/UL} [facility] [employer], [employer].; [facility] RBC (Bld) [#/Vol] 4.41 {x_10EE6/UL} Normal 4.10 - 5.30 {x_10EE6/UL } [facility] [employer] [facility] WBC (Bld) [#/Vol] 6.9 {x_10EE3/UL} Normal 4.5 - 10.8 {x_10EE3/UL } [facility].; [facility], [facility]. No Panel Informationon 11-23 CBC + DIFF Normal [facility].; [facility], [facility]. MANUAL DIFF N/A Normal [facility].; [facility], [facility]. Laboratory - Chemistry and C hemistry - challengeon 06-06-2019 Anion gap [Moles/Vol] 12 mmol/L Normal 10 - 2 0 mmol/L [facility].; [facility], [facility]. Calcium [Mass/Vol] 9.3 mg/dL Normal 8.6 - 10. 2 mg/dL [facility].; [facility], [facility]. Chloride [Moles/Vol] 105 mmol/L Normal 98 - 10 7 mmol/L [facility].; [facility], [facility]. CO2 [Moles/Vol] 25.0 mmol/L Normal 21.0 - 31.0 mmol/L [facility].; [facility], [facility]. Creatinine [Mass/Vol] 0.9 mg/dL Normal 0.6 - 1.2 mg/dL [facility].; [facility], [facility]. GFR/1.73 sq M.predicted among blacks MDRD (S/P/Bld) [Vol rate/Area] mL/min/{1.73_m2} Normal 60 - 999 {ML/MINUTE} [facility].; [facility], [facility]. GFR/1.73 sq M.predicted MDRD (S/P/Bld) [Vol rate/Area] mL/min/{1.73_m2} Normal 60 - 999 {ML/MINUTE} [facility], [facility].; [facility] Glucose [Mass/Vol] 98 mg/dL Normal 74 - 106 mg/dL [facility].; [facility] Iron [Mass/Vol] 27 ug/dL Abnormal 50 - 170 ug/dL [facility].; [facility], [facility] Potassium [Moles/Vol] 3.8 mmol/L Normal 3.5 - 5.1 mmol/L [facility]; [facility], [facility] Sodium [Moles/Vol] 138 mmol/L Normal 136 - 145 mmol/L [facility]; [facility] Urea nitrogen [Mass/Vol] 10 mg/dL Normal 6 - 20 mg/dL [facility]; [facility] Laboratory - Hematology and Cell countson 06-06-2019 Basophils (Bld) [#/Vol] 0.10 {x10EE3/UL} Normal 0.00 - 0.10 {x10EE3/UL} [facility]; [facility], [facility] Basophils/100 WBC (Bld) 0.9 % Normal 0.0 - 2.0 % [facility]; [facility], [facility] Eosinophils (Bld) [#/Vol] 0.10 {x10EE3/UL} Normal 0.00 - 0.50 {x10EE3/UL} [facility]; [facility], [facility] Eosinophils/100 WBC (Bld) 1.6 % Normal 0.0 - 7.0 % [facility]; [facility] Erythrocyte distribution width (RBC) [Ratio] 15.7 % Abnormal 12.0 - 15.6 % [facility]; [facility], [facility] Hematocrit (Bld) [Volume fraction] 35.4 % Normal 34.0 - 46.0 % [facility]; [facility], [facility] Hemoglobin (Bld) [Mass/Vol] 11.6 g/dL Abnormal 12.0 - 16.0 g/dL [facility]; [facility], [facility] Lymphocytes (Bld) [#/Vol] 2.30 {x10EE3/UL} Normal 0.80 - 2.80 {x10EE3/UL} [facility], [facility].; [facility], [facility]. Lymphocytes/100 WBC (Bld) 32.4 % Normal 20.0 - 45.0 % [facility], [facility].; [facility], [facility]. MCH (RBC) [Entitic mass] 27 pg Normal 27 - 33 pg [facility], [facility].; [facility], [facility]. MCHC (RBC) [Mass/Vol] 33 {X10_3} Normal 32 - 3 6 {X10_3} [facility], [facility].; [facility] MCV (RBC) [Entitic vol] 83 fL Normal 80 - 99 fL [facility], [facility].; [facility], [facility]. Monocytes (Bld) [#/Vol] 0.30 {x10EE3/UL} Normal 0.20 - 1.00 {x10EE3/UL} [facility], [facility].; [facility], [facility]. Monocytes/100 WBC (Bld) 4.3 % Normal 0.0 - 10.0 % [facility], [facility].; [facility], [facility]. Morphology Aubrey (Bld) [Interp] N/A Normal [facility].; [facility], [facility]. Neutrophils (Bld) [#/Vol] 4.30 {x10EE3/UL} Normal 1.50 - 7.10 {x10EE3/UL} [facility], [facility].; [facility] Neutrophils/100 WBC (Bld) 60.8 % Normal 46.0 - 76.0 % [facility], [facility].; [facility] Platelet mean volume (Bld) [Entitic vol] 7.1 fL Normal 6.6 - 10.5 fL [facility] [employer], [facility].; [facility], [facility]. Platelets (Bld) [#/Vol] 310 {x10EE3/UL} Normal 150 - 450 {x10EE3/UL} [facility] [employer], [employer]. RBC (Bld) [#/Vol] 4.24 {x_10EE6/UL} Normal 4.10 - 5.30 {x_10EE6/UL } [employer], [employer]. WBC (Bld) [#/Vol] 7.1 {x_10EE3/UL} Normal 4.5 - 10.8 {x_10EE3/UL } [employer], [employer]. No Panel Informationon 06-06 AGE 33 {years} Normal [employer] BMP with eGFR Normal [employer]. CBC + DIFF Normal [employer].; [employer] MANUAL DIFF N/A Normal [employer]. Position Clerk Cytology Reporton 2017 Position Clerk Cytology Report . Pathology ReportsAccession: Collected Date/Time: Received Date/Time: Pathologist:[id number] 06/07/2018 13:58 EDT 06/07/2018 18:00 EDT Position Clerk Cytology ReportSPECIMEN:Specimen Description: Liquid Prep Reflex ASCUSSpecimen: Cervical/EndocervicalScree pramod or Diagnostic: ScreeningRELEVANT HISTORY:LMP: 28-15-98THIRJWEB ADEQUACY:SATISFACTORY FOR EVALUATIONENDOCERVICAL/TRA NSFORMATIONAL ZONE COMPONENT PRESENTINTERPRETATION/RESU LTS:NEGATIVE FOR INTRAEPITHELIAL LESION OR MALIGNANCYElectronically Signed byPathology report verified by [facility] Campuscreened by: LSElectronically signed by Ileana PAREDES (ASCP)Sign-Out Date: 06/09/2018 12:31Performing Lab: [facility], [address] [place], [place] [address]DisclaimerThe Pap test is a screening test for cervical cancer. As evidenced by published data, it is subject to both inherent false negative and false positive results. Your patient's results should be interpreted in context with pertinent clinical history including gynecological examination. Normal [facility] ([place]) Comment on above: Performed By: #### G YCR ####[place] [id number] Laboratory - Hematology and Cell countson 06-07-2018 Basophils (Bld) [#/Vol] 0.00 {x10EE3/UL} Normal 0.00 - 0.10 {x10EE3/UL} [facility] [place] [facility] [employer] Basophils/100 WBC (Bld) 0.7 % Normal 0.0 - 2.0 % [facility] [employer].; [place] - [facility] [employer] CBC panel Auto (Bld) Normal [facility] FoundationMarket[facility].; [facility] [employer] Eosinophils (Bld) [#/Vol] 0.10 {x10EE3/UL} Normal 0.00 - 0.50 {x10EE3/UL} [facility].; [place] [facility] [employer] Eosinophils/100 WBC (Bld) 0.9 % Normal 0.0 - 7.0 % [facility] FoundationMarket[facility].; [place] - [facility] [employer] Erythrocyte distribution width (RBC) [Ratio] 16.2 % Abnormal 12.0 - 15.6 % [facility] [employer].; [facility] [employer] Hematocrit (Bld) [Volume fraction] 34.7 % Normal 34.0 - 46.0 % [facility].; [facility] [employer] Hemoglobin (Bld) [Mass/Vol] 11.3 g/dL Abnormal 12.0 - 16.0 g/dL [facility].; [facility] [employer] Lymphocytes (Bld) [#/Vol] 2.10 {x10EE3/UL} Normal 0.80 - 2.80 {x10EE3/UL} [facility] [employer].; [place] - [facility] [employer] Lymphocytes/100 WBC (Bld) 33.0 % Normal 20.0 - 45.0 % [facility].; [place] [employer] [facility], [employer] MCH (RBC) [Entitic mass] 26 pg Abnormal 27 - 33 pg [facility].; [facility], [facility]. MCHC (RBC) [Mass/Vol] 33 {X10_3} Normal 32 - 3 6 {X10_3} [facility], [facility].; [facility], [facility]. MCV (RBC) [Entitic vol] 80 fL Normal 80 - 99 fL [facility], [facility].; [facility], [facility] Monocytes (Bld) [#/Vol] 0.30 {x10EE3/UL} Normal 0.20 - 1.00 {x10EE3/UL} [facility], [facility].; [facility], [facility]. Monocytes/100 WBC (Bld) 4.7 % Normal 0.0 - 10.0 % [facility].; [facility], [facility] Morphology Aubrey (Bld) [Interp] N/A Normal [facility].; [facility], [facility]. Neutrophils (Bld) [#/Vol] 3.90 {x10EE3/UL} Normal 1.50 - 7.10 {x10EE3/UL} [facility].; [facility], [facility]. Neutrophils/100 WBC (Bld) 60.7 % Normal 46.0 - 76.0 % [facility].; [facility], [facility]. Platelet mean volume (Bld) [Entitic vol] 7.8 fL Normal 6.6 - 10.5 fL [facility].; [facility], [facility]. Platelets (Bld) [#/Vol] 282 {x10EE3/UL} Normal 150 - 450 {x10EE3/UL} [facility] [employer], [facility].; [facility] RBC (Bld) [#/Vol] 4.34 {x_10EE6/UL} Normal 4.10 - 5.30 {x_10EE6/UL } [facility] [employer].; [facility], [facility]. WBC (Bld) [#/Vol] 6.5 {x_10EE3/UL} Normal 4.5 - 10.8 {x_10EE3/UL } [facility].; [facility]. No Panel Informationon 06-07 Position Clerk Cytology Report See Note Normal [facility].; [facility]. MANUAL DIFF N/A Normal [facility].; [facility] Center[facility]. Laboratory - Hematology and Cell countson 01-25-2018 Basophils (Bld) [#/Vol] 0.10 {x10EE3/UL} Normal 0.00 - 0.10 {x10EE3/UL} [facility].; [facility]. Work Phone: Basophils/100 WBC (Bld) 0.7 % Normal 0.0 - 2.0 % [facility]. Work Phone: CBC panel Auto (Bld) Normal [facility].; [facility]. Work Phone: Eosinophils (Bld) [#/Vol] 0.10 {x10EE3/UL} Normal 0.00 - 0.50 {x10EE3/UL} [facility].; [facility] [employer], [employer]. Work Phone: Eosinophils/100 WBC (Bld) 1.6 % Normal 0.0 - 7.0 % [facility].; [facility]. Work Phone: Erythrocyte distribution width (RBC) [Ratio] 14.7 % Normal 12.0 - 15.6 % [facility] [employer] FoundationMarket[employer].; [facility]. Work Phone: Hematocrit (Bld) [Volume fraction] 33.1 % Abnormal 34.0 - 46.0 % [facility]. Work Phone: Hemoglobin (Bld) [Mass/Vol] 10.7 g/dL Abnormal 12.0 - 16.0 g/dL [facility]; [facility] Work Phone: Lymphocytes (Bld) [#/Vol] 2.40 {x10EE3/UL} Normal 0.80 - 2.80 {x10EE3/UL} [facility]; [facility] Work Phone: Lymphocytes/100 WBC (Bld) 35.5 % Normal 20.0 - 45.0 % [facility]; [facility] Work Phone: MCH (RBC) [Entitic mass] 26 pg Abnormal 27 - 33 pg [facility]; [facility] Work Phone: MCHC (RBC) [Mass/Vol] 32 {X10_3} Normal 32 - 3 6 {X10_3} [facility]; [facility] Work Phone: MCV (RBC) [Entitic vol] 80 fL Normal 80 - 99 fL [facility]; [facility] Work Phone: Monocytes (Bld) [#/Vol] 0.40 {x10EE3/UL} Normal 0.20 - 1.00 {x10EE3/UL} [facility]; [facility] Work Phone: Monocytes/100 WBC (Bld) 5.2 % Normal 0.0 - 10.0 % [facility]; [facility] Work Phone: Morphology Aubrey (Bld) [Interp] N/A Normal [facility]; [facility]. Work Phone: Neutrophils (Bld) [#/Vol] 3.90 {x10EE3/UL} Normal 1.50 - 7.10 {x10EE3/UL} [facility].; [facility]. Work Phone: Neutrophils/100 WBC (Bld) 57.0 % Normal 46.0 - 76.0 % [facility]; [facility]. Work Phone: Platelet mean volume (Bld) [Entitic vol] 7.4 fL Normal 6.6 - 10.5 fL [facility]; [facility] Work Phone: Platelets (Bld) [#/Vol] 294 {x10EE3/UL} Normal 150 - 450 {x10EE3/UL} [facility].; [facility]. Work Phone: RBC (Bld) [#/Vol] 4.15 {x_10EE6/UL} Normal 4.10 - 5.30 {x_10EE6/UL } [facility].; [facility]. Work Phone: WBC (Bld) [#/Vol] 6.9 {x_10EE3/UL} Normal 4.5 - 10.8 {x_10EE3/UL } [facility].; [facility]. Work Phone: No Panel Informationon 01-25 MANUAL DIFF N/A Normal [facility]; [facility]. Work Phone: Laboratory - Chemistry and C hemistry - challengeon 12-21-2017 Albumin [Mass/Vol] 3.9 g/dL Normal 3.4 - 4.8 g/dL [facility]; [facility] Albumin [Mass/Vol] 1.3 g/dL Normal 0.9 - 1.6 [facility].; [facility], [facility] ALT [Catalytic activity/Vol] 27 U/L Normal 8 - 35 U/L [facility]; [facility], [facility] ALT No additional P-5'-P [Catalytic activity/Vol] 27 U/L Normal 8 - 35 U/L [facility]; [facility], [facility] Anion gap [Moles/Vol] 13 mmol/L Normal 10 - 2 0 mmol/L [facility]; [facility], [facility] AST [Catalytic activity/Vol] 20 U/L Normal 13 - 39 U/L [facility]; [facility], [facility] Bilirubin [Mass/Vol] 0.3 mg/dL Normal 0.0 - 1 .5 mg/dL [facility]; [facility], [facility] Calcium [Mass/Vol] 9.0 mg/dL Normal 8.6 - 10. 2 mg/dL [facility]; [facility], [facility] Chloride [Moles/Vol] 106 mmol/L Normal 98 - 10 7 mmol/L [facility]; [facility], [facility] CO2 [Moles/Vol] 24.3 mmol/L Normal 21.0 - 31.0 mmol/L [facility]; [facility], [facility] Creatinine [Mass/Vol] 0.8 mg/dL Normal 0.6 - 1.2 mg/dL [facility]; [facility], [facility]. GFR/1.73 sq M.predicted among blacks MDRD (S/P/Bld) [Vol rate/Area] mL/min/{1.73_m2} Normal 60 - 999 {ML/MINUTE} [facility]; [facility], [facility]. GFR/1.73 sq M.predicted MDRD (S/P/Bld) [Vol rate/Area] mL/min/{1.73_m2} Normal 60 - 999 {ML/MINUTE} [facility].; [facility], [facility] Globulin (S) [Mass/Vol] 3.1 g/dL Normal 1.5 - 3.8 g/dL [facility].; [facility], [facility] Glucose [Mass/Vol] 100 mg/dL Normal 74 - 106 mg/dL [facility]; [facility], [facility] [facility] Potassium [Moles/Vol] 4.0 mmol/L Normal 3.5 - 5.1 mmol/L [facility]; [facility], [facility] Protein [Mass/Vol] 7.0 g/dL Normal 6.4 - 8.3 g/dL [facility].; [facility], [facility] Sodium [Moles/Vol] 139 mmol/L Normal 136 - 145 mmol/L [facility].; [facility], [facility]. TSH Qn 1.37 m[IU]/L Normal 0.34 - 5.60 {uIU/ml} [facility]; [facility], [facility] Urea nitrogen [Mass/Vol] 12 mg/dL Normal 6 - 20 mg/dL [facility].; [facility], [facility]. Urea nitrogen/Creatinine [Mass ratio] 15 {ratio} Normal 0 - 30 {ratio} [facility].; [facility], [facility]. Laboratory - Hematology and Cell countson 12-21-2017 Basophils (Bld) [#/Vol] 0.10 {x10EE3/UL} Normal 0.00 - 0.10 {x10EE3/UL} [facility].; [facility], [facility]. Basophils/100 WBC (Bld) 0.9 % Normal 0.0 - 2.0 % [facility].; [facility] CBC panel Auto (Bld) Normal [facility]; [facility] Eosinophils (Bld) [#/Vol] 0.10 {x10EE3/UL} Normal 0.00 - 0.50 {x10EE3/UL} [facility].; [facility] Eosinophils/100 WBC (Bld) 1.6 % Normal 0.0 - 7.0 % [facility]; [facility] Erythrocyte distribution width (RBC) [Ratio] 14.7 % Normal 12.0 - 15.6 % [facility]; [facility] Hematocrit (Bld) [Volume fraction] 31.8 % Abnormal 34.0 - 46.0 % [facility]; [facility] Hemoglobin (Bld) [Mass/Vol] 10.6 g/dL Abnormal 12.0 - 16.0 g/dL [facility]; [facility] Lymphocytes (Bld) [#/Vol] 2.30 {x10EE3/UL} Normal 0.80 - 2.80 {x10EE3/UL} [facility]; [facility] Lymphocytes/100 WBC (Bld) 38.3 % Normal 20.0 - 45.0 % [facility]; [facility], [facility] MCH (RBC) [Entitic mass] 28 pg Normal 27 - 33 pg [facility].; [facility], [facility]. MCHC (RBC) [Mass/Vol] 33 {X10_3} Normal 32 - 3 6 {X10_3} [facility].; [facility], [facility]. MCV (RBC) [Entitic vol] 83 fL Normal 80 - 99 fL [facility]; [facility] Monocytes (Bld) [#/Vol] 0.30 {x10EE3/UL} Normal 0.20 - 1.00 {x10EE3/UL} [employer] [facility].; [facility] [employer] [facility] Monocytes/100 WBC (Bld) 4.4 % Normal 0.0 - 10.0 % [facility] [employer] [facility] [employer].; [facility] [employer] [facility], [employer] Morphology Aubrey (Bld) [Interp] N/A Normal [facility].; [facility] [employer] [facility], [employer]. Neutrophils (Bld) [#/Vol] 3.30 {x10EE3/UL} Normal 1.50 - 7.10 {x10EE3/UL} [facility] [employer] [facility], [employer].; [facility] [employer] [facility], [employer] Neutrophils/100 WBC (Bld) 54.8 % Normal 46.0 - 76.0 % [facility] [employer] [facility] [employer].; [place] [employer] [facility] [employer] [facility], [employer] Platelet mean volume (Bld) [Entitic vol] 6.9 fL Normal 6.6 - 10.5 fL [facility] [employer] [facility].; [facility] [employer] [facility], [employer] Platelets (Bld) [#/Vol] 342 {x10EE3/UL} Normal 150 - 450 {x10EE3/UL} [facility] [employer] [facility] [employer] [facility], [employer] RBC (Bld) [#/Vol] 3.82 {x_10EE6/UL} Abnormal 4.10 - 5.30 {x_10EE6/UL } [employer] [facility], Inc.; [facility] [employer] [facility], [employer] WBC (Bld) [#/Vol] 6.1 {x_10EE3/UL} Normal 4.5 - 10.8 {x_10EE3/UL } [employer] [place] [employer] [facility] [employer], [employer]. No Panel Informationon 12-21 AGE 32 {years} Normal [employer] ALK PHOS 72 U/L Normal 38 - 126 U/L [employer] CMP with eGFR Normal [employer] [place] [employer] [facility] [employer] [facility], [employer] MANUAL DIFF N/A Normal [facility] Inc.; [facility], Inc. Laboratory - Chemistry and C hemistry - challengeon 08-10-2017 Bilirubin Ql (U) Negative Normal [facility], [facility].; [facility], Inc. Ketones Ql (U) Negative Normal [facility], Inc.; [facility], Inc. pH (U) 5.0 [pH] Normal [facility] Inc.; [facility], Inc. Specific gravity (U) [Rel density] 1.015 Normal [facility].; [facility], Inc. Laboratory - Hematology and Cell countson 08-10-2017 Hemoglobin Ql (U) HEMOLYZED 3+ Abnormal [facility].; [facility], [facility]. Laboratory - Microbiology an d Antimicrobial susceptibilityon 08-10-2017 Bacteria identified Cx Nom (U) See Note Normal [facility].; [facility], Inc. Laboratory - Specimen inform ationon 08-10-2017 Appearance (U) CLEAR Normal [facility].; [facility], Inc. Color (U) YELLOW Normal [facility].; [facility], Inc. Laboratory - Urinalysison Glucose Test strip (U) [Mass/Vol] Negative Normal [facility].; [facility], Inc. Leukocyte esterase Test strip Ql (U) TRACE Abnormal [facility].; [facility], Inc. Nitrite Ql (U) Negative Normal [facility] Inc.; [facility], Inc. Protein Ql (U) Negative Normal [facility].; [facility], Inc. No Panel Informationon 08-10 UA - ODOR Negative Normal [facility], Inc.; [facility], Inc. UA - UROBILIGEN 0.2 Normal [facility], Inc. Laboratory - Chemistry and C hemistry - challengeon 07-21-2016 Bilirubin Ql (U) Negative Normal [facility], Inc.; [facility], Inc. Ketones Ql (U) Negative Normal [facility], Inc.; [facility], Inc. pH (U) 5.0 [pH] Normal [facility], Inc.; [facility], Inc. Specific gravity (U) [Rel density] 1.020 Normal [facility], Inc.; [facility], Inc. Laboratory - Hematology and Cell countson 07-21-2016 Hemoglobin Ql (U) Negative Normal [facility], Inc.; [facility], Inc. Laboratory - Specimen inform ationon 07-21-2016 Appearance (U) CLEAR Normal [facility], Inc.; [facility], Inc. Color (U) YELLOW Normal [facility], [employer].; [facility], Inc. Laboratory - Urinalysison Glucose Test strip (U) [Mass/Vol] Negative Normal [facility], Inc.; [facility], Inc. Leukocyte esterase Test strip Ql (U) Negative Normal [facility], Inc.; [facility], Inc. Nitrite Ql (U) Negative Normal [facility], Inc.; [facility], Inc. Protein Ql (U) TRACE Abnormal [facility] Inc.; [facility], Inc. No Panel Informationon 07-21 Pathology WINDOWS ADMIN SEE BELOW [facility], Inc.; [facility] [employer] [facility], Inc. UA - ODOR Negative Normal [facility] Inc.; [facility], Inc. UA - UROBILIGEN 0.2 Normal [facility].; [facility], Inc. No Panel Informationon 02-08 Pathology WINDOWS ADMIN SEE BELOW [facility], Inc.; [facility] [employer] [facility], [employer]. Work Phone: Laboratory - Chemistry and C hemistry - challengeon 03-19-2013 Beta HCG ( test) Ql (U) Negative Normal [facility], [facility].; [facility], Inc. Bilirubin Ql (U) Negative [facility], [facility].; [facility], [facility]. Hemoglobin.gastrointe stinal Ql (Stl) Negative [facility], [facility].; [facility], Inc. Ketones Ql (U) Negative [facility], [facility].; [facility], Inc. pH (U) 7.0 [pH] Normal [facility], [facility].; [facility], Inc. Specific gravity (U) [Rel density] 1.020 [facility].; [facility], [facility]. Laboratory - Hematology and Cell countson 03-19-2013 Hemoglobin Ql (U) Negative Normal [facility], [facility].; [facility], Inc. Laboratory - Specimen inform ationon 03-19-2013 Appearance (U) CLEAR [facility].; [facility], Inc. Color (U) YELLOW [facility].; [facility], Inc. Laboratory - Urinalysison Glucose Test strip (U) [Mass/Vol] Negative [facility], [facility].; [facility], Inc. Leukocyte esterase Test strip Ql (U) Negative [facility], [facility].; [facility], Inc. Nitrite Ql (U) Negative [facility], [facility].; [facility], Inc. Protein Ql (U) Negative [facility], [facility].; [facility], Inc. No Panel Informationon 03-19 UA - ODOR Negative [facility], [facility].; [facility], Inc. UA - UROBILIGEN 0.2 [facility].; [facility], Inc. Laboratory - Chemistry and C hemistry - challengeon 05-19-2011 Ketones Ql (U) Negative [facility], [facility].; [facility], [facility]. Laboratory - Urinalysison Glucose Test strip (U) [Mass/Vol] Negative [facility].; [facility], [facility]. Nitrite Ql (U) Negative Normal [facility], [facility].; [facility], Inc. Protein Ql (U) 2+ Abnormal [facility].; [facility], [facility]. Laboratory - Chemistry and C hemistry - challengeon 05-05-2011 Ketones Ql (U) Negative Normal [facility], [facility].; [facility], Inc. Laboratory - Urinalysison Glucose Test strip (U) [Mass/Vol] Negative Normal [facility], [facility].; [facility], Inc. Nitrite Ql (U) Negative Normal [facility], [facility].; [facility], Inc. Protein Ql (U) Negative Normal [facility], [facility].; [facility], Inc. Laboratory - Chemistry and C hemistry - challengeon 04-14-2011 Ketones Ql (U) Negative Normal [facility], [facility].; [facility], Inc. Laboratory - Urinalysison Glucose Test strip (U) [Mass/Vol] Negative Normal [facility], [facility].; [facility], Inc. Nitrite Ql (U) Negative Normal [facility], [facility].; [facility], Inc. Protein Ql (U) Negative Normal [facility], [facility].; [facility], Inc. Laboratory - Hematology and Cell countson 03-17-2011 Hemoglobin Ql (U) Negative [facility], [facility].; [facility], [facility]. Laboratory - Urinalysison Glucose Test strip (U) [Mass/Vol] Negative Normal [facility], [facility].; [facility], Inc. Leukocyte esterase Test strip Ql (U) Negative [facility], [facility].; [facility], Inc. Protein Ql (U) Negative Normal [facility].; [facility], Inc. Laboratory - Hematology and Cell countson 02-17-2011 Hemoglobin Ql (U) Negative Normal [facility].; [facility], [facility]. Laboratory - Urinalysison Glucose Test strip (U) [Mass/Vol] Negative Normal [facility].; [facility], [facility]. Leukocyte esterase Test strip Ql (U) Negative Normal [facility].; [facility], Inc. Protein Ql (U) TRACE Normal [facility].; [facility], [facility]. Laboratory - Hematology and Cell countson 01-15-2011 Hemoglobin Ql (U) Negative Normal [facility].; [facility], [facility]. Laboratory - Microbiology an d Antimicrobial susceptibilityon 01-15-2011 Bacteria identified Cx Nom (U) no growth [facility].; [facility], [facility]. Laboratory - Urinalysison Glucose Test strip (U) [Mass/Vol] Negative [facility].; [facility], [facility]. Leukocyte esterase Test strip Ql (U) Negative [facility].; [facility], Inc. Protein Ql (U) Negative [facility].; [facility], Inc. Laboratory - Blood bankon ABO group Nom (Bld) A [facility].; [facility], [facility]. Blood group antibody screen Ql Negative [facility].; [facility], Inc. Rh Nom (Bld) Positive [facility].; [facility], [facility]. Laboratory - Cytologyon Microscopic observation Cyto stain.thin prep Nom (Cvx) NORMAL [facility].; [facility], Inc. Laboratory - Hematology and Cell countson 12-16-2010 Hematocrit (Bld) [Volume fraction] 38.1 % Abnormal 42.9 - 49.1 % [facility].; [facility], [facility]. Hemoglobin (Bld) [Mass/Vol] 12.7 g/dL Abnormal 14.4 - 16.6 g/dL [facility].; [facility], [facility]. Hemoglobin Ql (U) Negative Normal [facility].; [facility], [facility] Platelets (Bld) [#/Vol] 291 10*3/uL Normal [facility].; [facility]. WBC (Bld) [#/Vol] 8.65 10*9{Cells}/L Normal 4.5 - 11.0 10*9{Cells} /L [facility].; [facility], [facility]. Laboratory - Microbiology an d Antimicrobial susceptibilityon 12-16-2010 C. trachomatis rRNA Probe Ql (Unsp spec) Negative Normal [facility].; [facility], [facility]. HBV surface Ag IA Ql Negative Normal [facility].; [facility], [facility]. N. gonorrhoeae rRNA Probe Ql (Unsp spec) Negative [facility].; [facility], [facility]. Reagin Ab VDRL Ql (S) Non-Reactive Normal [facility].; [facility], [facility]. Rubella virus IgG Qn (S) IMMUNE Normal [facility].; [facility], [facility]. Laboratory - Urinalysison Glucose Test strip (U) [Mass/Vol] Negative Normal [facility].; [facility], [facility]. Leukocyte esterase Test strip Ql (U) Negative Normal [facility].; [facility], [facility]. Protein Ql (U) Negative Normal [facility].; [facility], [facility]. Laboratory - Chemistry and C hemistry - challengeon 11-23-2010 Beta HCG ( test) Ql (U) Positive Normal [facility].; [facility], [facility]. Vital Signs Date Time Vital Sign Value Performing Clinician Edith fulton 11-21-2024 14:20-0500 Body height 154.94 cm Martha Solano [facility], [facility].; [facility], [facility]. 11-21-2024 14:20-0500 Body mass index (BMI) [Ratio] 38.17 kg/m2 Martha Solano [facility], [facility].; [facility], [facility]. 11-21-2024 14:20-0500 Body surface area Derived from formula 1.9 m2 Martha Solano [facility].; [facility], [facility]. 11-21-2024 14:20-0500 Body temperature 98.9 [degF] Martha Solano [facility], Inc.; [facility], [employer]. Comment on above: Method: Oral 11-21-2024 14:20-0500 Body weight 91.63 kg Martha Solano [facility].; [facility], [facility]. 11-21-2024 14:20-0500 Diastolic blood pressure 73 mm[Hg] Martha Solano [facility], [facility].; [facility], [employer]. Comment on above: Patient Position: Sitting; Cuff Location : Left Arm; Cuff Size: Standard 11-21-2024 14:20-0500 Heart rate 76 /min Martha Solano [facility], [facility].; [facility], [facility]. Comment on above: Pattern: Regular 11-21-2024 14:20-0500 Inhaled oxygen concentration 21 % Martha Solano [facility].; [facility], [employer]. Comment on above: Room air 11-21-2024 14:20-0500 SaO2% (BldA) [Mass fraction] 98 % Martha Solano [facility], Inc.; [facility], Inc. 11-21-2024 14:20-0500 Systolic blood pressure 116 mm[Hg] Martha Solano [facility], Inc.; [facility], Inc. Comment on above: Patient Position: Sitting; Cuff Location : Left Arm; Cuff Size: Standard 01-11-2024 13:54-0500 Body height 154.94 cm Edie Schulz [facility], Inc.; [facility], Inc[facility] 01-11-2024 13:54-0500 Body mass index (BMI) [Ratio] 38.17 kg/m2 Edie Zeus [facility], [facility].; [facility], [facility]. 01-11-2024 13:54-0500 Body surface area Derived from formula 1.9 m2 Edie Zeus [facility], [facility].; [facility], [facility]. 01-11-2024 13:54-0500 Body weight 91.63 kg Edie Zeus [facility], [facility].; [facility], [facility]. 01-11-2024 13:54-0500 Diastolic blood pressure 86 mm[Hg] Edie Zeus [facility], Inc.; [facility], Inc. Comment on above: Patient Position: Sitting; Cuff Location : Left Arm; Cuff Size: Standard 01-11-2024 13:54-0500 Heart rate 88 /min Edie Zeus [facility], Inc.; [facility], Inc. Comment on above: Pattern: Regular 01-11-2024 13:54-0500 Systolic blood pressure 120 mm[Hg] Edie Schulz [facility], Inc.; [facility], Inc[facility] Comment on above: Patient Position: Sitting; Cuff Location : Left Arm; Cuff Size: Standard 06-15-2023 15:45-0400 Body height 154.94 cm [facility], [facility].; [facility], Inc[facility] 06-15-2023 15:45-0400 Body mass index (BMI) [Ratio] 36.66 kg/m2 [facility], Inc.; [facility], Inc[facility] 06-15-2023 15:45-0400 Body surface area Derived from formula 1.86 m2 [facility], Inc.; [facility], Inc[facility] 06-15-2023 15:45-0400 Body weight 88 kg Niecy Overholt [facility], Inc.; [facility], Inc[facility] 06-15-2023 15:45-0400 Diastolic blood pressure 82 mm[Hg] Niecy Overholt [facility], Inc.; [facility], Inc. Comment on above: Patient Position: Sitting; Cuff Location : Left Arm; Cuff Size: Standard 06-15-2023 15:45-0400 Heart rate 78 /min [facility].; [facility], Inc[facility] Comment on above: Pattern: Regular 06-15-2023 15:45-0400 Systolic blood pressure 118 mm[Hg] [place] [facility] [facility] HospitalTeledata Networks Inc.; [facility], Inc. Comment on above: Patient Position: Sitting; Cuff Location : Left Arm; Cuff Size: Standard 07-28-2022 16:13-0400 Body height 154.94 cm FANNY Store [employer] Work Phone: [facility] Networks [facility].; [facility] HospitalTeled[facility] Networks Inc. 07-28-2022 16:13-0400 Body mass index (BMI) [Ratio] 37.41 kg/m2 Glass-C Work Phone: [facility] HospitalMarketShare.; [facility] [employer] Nemours FoundationTeledata Networks Inc. 07-28-2022 16:13-0400 Body surface area Derived from formula 1.88 m2 FANNY 24 Quan-C Work Phone: [facility] HospitalMarketShare.; [facility] [employer] Nem[facility] FoundationPromoteU 07-28-2022 16:13-0400 Body weight 89.81 kg FANNY LAWSONTETTER GUARD MANAGER-C Work Phone: [facility] [employer] Nemours FoundationPromoteU; [employer] [facility] [employer] Nem[facility] FoundationPromoteU 07-28-2022 16:13-0400 Diastolic blood pressure 81 mm[Hg] FANNY HERZOGFSTETTER GUARD MANAGER-C Work Phone: [facility] [employer] [facility] FoundationPromoteU; [employer] [place] [employer] [facility] [employer] Nem[facility] FoundationPromoteU Comment on above: Patient Position: Sitting; Cuff Location : Left Arm; Cuff Size: Standard 07-28-2022 16:13-0400 Heart rate 81 /min FANNY HERZOGFSTETTER GUARD MANAGER-C Work Phone: [facility] [employer] Nemours FoundationPromoteU; [employer]EK [employer] [facility] [employer] Comment on above: Pattern: Regular 07-28-2022 16:13-0400 Systolic blood pressure 124 mm[Hg] FANNY HERZOGFSTETTER GUARD MANAGER-C Work Phone: [facility] [employer] [facility] FoundationPromoteU; [employer] AnalyticsEK [employer] [facility] [employer]. Comment on above: Patient Position: Sitting; Cuff Location : Left Arm; Cuff Size: Standard 06-23-2022 13:02-0400 Body height 157.48 cm France Kaur RN [facility] [employer] [facility], Inc.; [facility] [employer] Nemours FoundationTeledata Networks [facility]. 06-23-2022 13:02-0400 Body mass index (BMI) [Ratio] 36.21 kg/m2 France Kaur RN [facility] [employer] [facility], Inc.; [facility] [employer] [facility], [facility]. 06-23-2022 13:02-0400 Body surface area Derived from formula 1.9 m2 France Kaur RN [facility] [employer] [facility], [facility].; [facility] [employer] [facility], Inc. 06-23-2022 13:02-0400 Body weight 89.81 kg France Kaur RN [facility] [employer] [facility], Inc.; [facility] [employer] [facility], Inc. 06-23-2022 13:02-0400 Diastolic blood pressure 77 mm[Hg] France Kaur RN [facility], Inc.; [facility], Inc. Comment on above: Patient Position: Sitting; Cuff Location : Left Arm; Cuff Size: Standard 06-23-2022 13:02-0400 Heart rate 71 /min France Kaur RN [facility], Inc.; [facility] [employer] [facility], Inc. Comment on above: Pattern: Regular 06-23-2022 13:02-0400 Inhaled oxygen concentration 21 % France Kaur RN [facility], Inc.; [facility], Inc. Comment on above: Room air 06-23-2022 13:02-0400 SaO2% (BldA) [Mass fraction] 98 % France Kaur RN [facility], Inc.; [employer] [facility], Inc. 06-23-2022 13:02-0400 Systolic blood pressure 113 mm[Hg] France Kaur RN [facility], Inc.; [facility], Inc. Comment on above: Patient Position: Sitting; Cuff Location : Left Arm; Cuff Size: Standard 02-11-2021 15:15-0400 Body height 157.48 cm Jannette Christian RN [facility], Inc.; [facility], Inc. 02-11-2021 15:15-0400 Body mass index (BMI) [Ratio] 35.69 kg/m2 Jannette Christian RN [facility], Inc.; [facility], Inc. 02-11-2021 15:15-0400 Body surface area Derived from formula 1.89 m2 Jannette Christian RN [facility], Inc.; [facility], Inc. 02-11-2021 15:15-0400 Body weight 88.51 kg Jannette Christian RN [facility], Inc.; [facility], Inc. 02-11-2021 15:15-0400 Diastolic blood pressure 88 mm[Hg] Jannette Christian RN [facility], Inc.; [facility] [employer] [facility], Inc. Comment on above: Patient Position: Sitting; Cuff Location : Left Arm; Cuff Size: Large 02-11-2021 15:15-0400 Heart rate 69 /min Jannette Christian RN [facility] [employer] [facility], Inc.; [employer] [facility], Inc. Comment on above: Pattern: Regular 02-11-2021 15:15-0400 Systolic blood pressure 131 mm[Hg] Jannette Christian RN [facility] [employer] [facility], Inc.; [employer] [facility], Inc. Comment on above: Patient Position: Sitting; Cuff Location : Left Arm; Cuff Size: Large 12-19-2019 10:09-0500 Body height 157.48 cm France Kaur RN [facility] [employer] [facility], Inc.; [employer] [facility] [employer] [facility], Inc. 12-19-2019 10:09-0500 Body mass index (BMI) [Ratio] 36.21 kg/m2 France Kaur RN [facility] [employer] [facility], Inc.; [employer] [facility] [employer] [facility], Inc. 12-19-2019 10:09-0500 Body surface area Derived from formula 1.9 m2 France Kaur RN [facility] [employer] [facility], Inc.; [employer] [facility] [employer] [facility], Inc. 12-19-2019 10:09-0500 Body temperature 98.5 [degF] France Kaur RN [facility] [employer] [facility], [employer] [facility], Inc. Comment on above: Method: Oral 12-19-2019 10:09-0500 Body weight 89.81 kg France Kaur RN [facility] [employer] [facility], Inc.; [employer] [facility] [employer] [facility], Inc. 12-19-2019 10:09-0500 Diastolic blood pressure 71 mm[Hg] France Kaur RN [facility] [employer] [facility], Inc.; [employer] [facility], Inc. Comment on above: Patient Position: Sitting; Cuff Location : Left Arm; Cuff Size: Standard 12-19-2019 10:09-0500 Heart rate 77 /min France Kaur RN [facility] [employer] [facility], Inc.; [employer] [facility], Inc. Comment on above: Pattern: Regular 12-19-2019 10:09-0500 Systolic blood pressure 103 mm[Hg] France [facility], Inc.; [employer], Inc. Comment on above: Patient Position: Sitting; Cuff Location : Left Arm; Cuff Size: Standard 06-06-2019 14:49-0400 Body height 157.48 cm Jannette Christian RN [facility] [employer] [facility], Inc.; [employer] [facility] [employer] [facility], Inc. 06-06-2019 14:49-0400 Body mass index (BMI) [Ratio] 36.03 kg/m2 Jannette Christian RN [facility] [employer] [facility], Inc.; [employer] [facility] [employer] [facility], Inc. 06-06-2019 14:49-0400 Body surface area Derived from formula 1.9 m2 Jannette Christian RN [facility] [employer] [facility], Inc.; [employer] [facility] [employer] [facility], Inc. 06-06-2019 14:49-0400 Body weight 89.36 kg Jannette Christian RN [facility] [employer] [facility], Inc.; [employer] [facility] [employer] [facility], Inc. 06-06-2019 14:49-0400 Diastolic blood pressure 84 mm[Hg] Jannette Christian RN [facility] [employer] [facility], Inc.; [employer] [facility] [employer], Inc. Comment on above: Patient Position: Sitting; Cuff Location : Left Arm; Cuff Size: Large 06-06-2019 14:49-0400 Heart rate 80 /min Jannette Christian RN [facility] [employer] [facility], Inc.; [employer] [facility] [employer], [employer]. Comment on above: Pattern: Regular 06-06-2019 14:49-0400 Systolic blood pressure 124 mm[Hg] Jannette Christian RN [facility] [employer] [facility], Inc.; [employer] [facility] [employer] [facility], Inc. Comment on above: Patient Position: Sitting; Cuff Location : Left Arm; Cuff Size: Large 01-01-2019 14:30-0500 Body height 157.48 cm France Kaur RN [facility] [employer] [facility], Inc.; [employer] [facility] [employer] [facility], Inc. 01-01-2019 14:30-0500 Body mass index (BMI) [Ratio] 34.2 kg/m2 France Kaur RN [facility] [employer] [facility], Inc.; [employer], Inc. 01-01-2019 14:30-0500 Body surface area Derived from formula 1.86 m2 France aKur RN [facility] [employer] [facility], Inc.; [employer], Inc. 01-01-2019 14:30-0500 Body temperature 98.4 [degF] France Kaur RN [facility] [employer] [facility], Inc.; [employer] [facility], Inc. Comment on above: Method: Oral 01-01-2019 14:30-0500 Body weight 84.82 kg France Kaur RN [facility] [employer] [facility], Inc.; [employer], Inc. 01-01-2019 14:30-0500 Diastolic blood pressure 71 mm[Hg] France Kaur RN [facility] [employer] [facility], Inc.; [employer] [facility] [employer], Inc. Comment on above: Patient Position: Sitting; Cuff Location : Left Arm; Cuff Size: Standard 01-01-2019 14:30-0500 Heart rate 83 /min France Kaur RN [facility] [employer] [facility], Inc.; [employer] [facility] [employer], Inc. Comment on above: Pattern: Regular 01-01-2019 14:30-0500 Systolic blood pressure 102 mm[Hg] France Kaur RN [facility] [employer] [facility], Inc.; [employer] [facility] [employer] [facility], Inc. Comment on above: Patient Position: Sitting; Cuff Location : Left Arm; Cuff Size: Standard 11-27-2018 11:00-0500 Body height 157.48 cm Odessa Ferris RN [facility] [employer] [facility], Inc.; [employer] [facility] [employer] [facility], Inc. 11-27-2018 11:00-0500 Body mass index (BMI) [Ratio] 33.1 kg/m2 Odessa Ferris RN [facility] [employer] [facility], Inc.; [employer] [facility] [employer] [facility], Inc. 11-27-2018 11:00-0500 Body surface area Derived from formula 1.83 m2 Odessa Ferris RN [facility] [employer] [facility], Inc.; [employer] [facility] [employer], Inc. 11-27-2018 11:00-0500 Body weight 82.1 kg Odessa Ferris RN [facility] [employer] [facility], Inc.; [employer] [facility] [employer], Inc. 11-27-2018 11:00-0500 Diastolic blood pressure 87 mm[Hg] Odessa Ferris RN [facility] [employer] [facility], Inc.; [employer], Inc. Comment on above: Patient Position: Sitting; Cuff Location : Left Arm; Cuff Size: Large 11-27-2018 11:00-0500 Heart rate 79 /min Odessa Ferris RN [facility] [employer] [facility], Inc.; [employer] [facility] [employer] [facility], Inc. Comment on above: Pattern: Regular 11-27-2018 11:00-0500 Systolic blood pressure 120 mm[Hg] Odessa Ferris RN [facility] [employer] [facility], Inc.; [employer] [facility] [employer], Inc. Comment on above: Patient Position: Sitting; Cuff Location : Left Arm; Cuff Size: Large 11-16-2018 14:52-0500 Body height 156.84 cm Odessa Ferris RN [facility] [employer] [facility], Inc.; [employer] [facility] [employer] [facility], Inc. 11-16-2018 14:52-0500 Body mass index (BMI) [Ratio] 32.82 kg/m2 Odessa Ferris RN [facility] [employer] [facility], Inc.; [employer] [facility] [employer] [facility], Inc. 11-16-2018 14:52-0500 Body surface area Derived from formula 1.81 m2 Odessa Ferris RN [facility] [employer] [facility], Inc.; [employer] [facility] [employer] [facility], Inc. 11-16-2018 14:52-0500 Body weight 80.74 kg Odessa Ferris RN [facility] [employer] [facility], Inc.; [employer] [facility] [employer] [facility], Inc. 11-16-2018 14:52-0500 Diastolic blood pressure 79 mm[Hg] Odessa Ferris RN [facility] [employer] [facility], Inc.; [employer] [facility] [employer], Inc. Comment on above: Patient Position: Sitting; Cuff Location : Left Arm; Cuff Size: Large 11-16-2018 14:52-0500 Heart rate 94 /min Odessa Ferris RN [facility] [employer] [facility], Inc.; Performance Ind[employer] [facility] [employer], Inc. Comment on above: Pattern: Regular 11-16-2018 14:52-0500 Systolic blood pressure 120 mm[Hg] Odessa Ferris RN [facility], Inc.; [employer] Ind[employer] [facility] [employer], Inc. Comment on above: Patient Position: Sitting; Cuff Location : Left Arm; Cuff Size: Large 06-07-2018 13:11-0400 Body height 156.84 cm [facility] [employer] [facility], Inc.; [facility] [employer] [facility], Inc. 06-07-2018 13:11-0400 Body mass index (BMI) [Ratio] 33.93 kg/m2 [facility], Inc.; [facility] [employer] [facility], Inc. 06-07-2018 13:11-0400 Body surface area Derived from formula 1.84 m2 [facility] [employer] [facility], Inc.; [facility] [employer] [facility], Inc. 06-07-2018 13:11-0400 Body temperature 98.3 [degF] [facility] [employer] [facility], Inc.; [facility] [employer] [facility], Inc. 06-07-2018 13:110400 Body weight 83.46 kg [facility], Inc.; [facility] [employer] [facility], Inc. 06-07-2018 13:11-0400 Diastolic blood pressure 71 mm[Hg] [facility] [employer] Nemours FoundationTeledata Networks Inc.; [employer] [facility] [employer] [facility], Inc. Comment on above: Patient Position: Sitting; Cuff Location : Left Arm; Cuff Size: Large 06-07-2018 13:11-0400 Heart rate 77 /min [facility] [employer] Nemours FoundationTeledata Networks Inc.; [employer] Ind[employer] [facility] [employer] [facility], Inc. Comment on above: Pattern: Regular 06-07-2018 13:11-0400 Systolic blood pressure 107 mm[Hg] [facility] [employer] [facility], Inc.; [employer] [facility] [employer] [facility], Inc. Comment on above: Patient Position: Sitting; Cuff Location : Left Arm; Cuff Size: Large 01-10-2018 16:18-0500 Body height 156.84 cm Odessa Ferris RN [facility] [employer] [facility], Inc.; [employer] [facility] [employer] [facility], Inc. 01-10-2018 16:18-0500 Body mass index (BMI) [Ratio] 35.81 kg/m2 Odessa Ferris RN [facility] [employer] [facility], Inc.; [employer] [facility] [employer], Inc. 01-10-2018 16:18-0500 Body surface area Derived from formula 1.88 m2 Odessa Ferris RN [facility] [employer] Nemours FoundationMarketShare.; [facility] [employer] [facility], Inc. 01-10-2018 16:18-0500 Body weight 88.09 kg Odessa Ferris RN [facility] [employer].; [employer] [facility] [employer], Inc. 01-10-2018 16:18-0500 Diastolic blood pressure 75 mm[Hg] Odessa Ferris RN [facility] [employer], [employer].; [employer], Inc. Comment on above: Patient Position: Sitting; Cuff Location : Left Arm; Cuff Size: Large 01-10-2018 16:18-0500 Heart rate 103 /min Odessa Ferris RN [facility] [employer], Inc.; [employer] Ind[employer] [facility] [employer], Inc. Comment on above: Pattern: Regular 01-10-2018 16:18-0500 Systolic blood pressure 114 mm[Hg] Odessa Ferris RN [facility] [employer].; [employer], Inc. Comment on above: Patient Position: Sitting; Cuff Location : Left Arm; Cuff Size: Large 12-20-2017 15:45-0500 Body height 155.57 cm Odessa Ferris RN [facility] [employer] [facility], Inc.; [employer] [facility] [employer], Inc. 12-20-2017 15:45-0500 Body mass index (BMI) [Ratio] 36.36 kg/m2 Odessa Ferris RN [facility] [employer].; [employer] Ind[employer] [facility] [employer], [employer]. 12-20-2017 15:45-0500 Body surface area Derived from formula 1.87 m2 Odessa Ferris RN [facility] [employer], [employer].; [employer] [facility] [employer], Inc. 12-20-2017 15:45-0500 Body temperature 98.4 [degF] [facility] trip[employer]me.; Performance Indicator [facility] [employer], [employer]. Comment on above: Method: Oral 12-20-2017 15:45-0500 Body weight 88 kg Odessa Ferris RN [facility] [employer].; [employer] [facility] [employer], Inc. 12-20-2017 15:45-0500 Diastolic blood pressure 91 mm[Hg] Odsesa Ferris RN [facility] [employer].; [employer], Inc. Comment on above: Patient Position: Sitting; Cuff Location : Left Arm; Cuff Size: Large 12-20-2017 15:45-0500 Heart rate 84 /min Odessa Ferris RN [facility] [employer] [facility], Inc.; [employer], Inc. Comment on above: Pattern: Regular 12-20-2017 15:45-0500 Systolic blood pressure 123 mm[Hg] Odessa Ferris RN [facility] [employer] [facility], Inc.; [employer], Inc. Comment on above: Patient Position: Sitting; Cuff Location : Left Arm; Cuff Size: Large 08-10-2017 15:02-0400 Body height 154.94 cm France Kaur RN [facility] [employer] [facility], Inc.; [employer] [facility] [employer] [facility], Inc. 08-10-2017 15:02-0400 Body mass index (BMI) [Ratio] 37.6 kg/m2 France Kaur RN [facility] [employer] [facility], Inc.; [employer] [facility] [employer] [facility], Inc. 08-10-2017 15:02-0400 Body surface area Derived from formula 1.89 m2 France Kaur RN [facility] [employer] [facility], Inc.; [employer], Inc. 08-10-2017 15:02-0400 Body temperature 98.2 [degF] France Kaur RN [facility] [employer] [facility], Inc.; [employer], Inc. Comment on above: Method: Oral 08-10-2017 15:02-0400 Body weight 90.27 kg France Kaur RN [facility] [employer] [facility], Inc.; [employer], Inc. 08-10-2017 15:02-0400 Diastolic blood pressure 72 mm[Hg] France Kaur RN [facility] [employer] [facility], Inc.; [employer], Inc. Comment on above: Patient Position: Sitting; Cuff Location : Left Arm; Cuff Size: Standard 08-10-2017 15:02-0400 Heart rate 79 /min France Kaur RN [facility] [employer] [facility], Inc.; [employer], Inc. Comment on above: Pattern: Regular 08-10-2017 15:02-0400 Systolic blood pressure 105 mm[Hg] France Kaur RN [facility].; [facility], [employer]. Comment on above: Patient Position: Sitting; Cuff Location : Left Arm; Cuff Size: Standard 07-21-2016 10: Body height 157.48 cm Jannette Christian RN [facility], Inc.; [employer] [facility], Inc. 07-21-2016 10:040 Body mass index (BMI) [Ratio] 35.3 kg/m2 Jannette Christian RN [facility], Inc.; [facility], Inc. 07-21-2016 10: Body surface area Derived from formula 1.88 m2 Jannette Christian RN [facility], [employer].; [facility], [facility]. 07-21-2016 10: Body weight 87.54 kg Jannette Christian RN [facility], Inc.; [facility], Inc. 07-21-2016 10: Diastolic blood pressure 85 mm[Hg] Jannette Christian RN [facility].; [facility], Inc. Comment on above: Patient Position: Sitting; Cuff Location : Right Arm; Cuff Size: Large 07-21-2016 10: Heart rate 94 /min Jannette Christian RN [facility], [employer].; [facility] [employer] [facility], Inc. Comment on above: Pattern: Regular 07-21-2016 10:0400 Systolic blood pressure 115 mm[Hg] Jannette Christian RN [facility]Market[facility].; [facility] [employer] [facility], Inc. Comment on above: Patient Position: Sitting; Cuff Location : Right Arm; Cuff Size: Large 05-20-2014 15:47-0400 Body height 154.94 cm FANNY COLBERTP-C Work Phone: [facility] [employer] Nem[facility] FoundationMarketShare.; [employer] [facility] [employer] [facility], Inc. 05-20-2014 15:47-0400 Body mass index (BMI) [Ratio] 35.9 kg/m2 FANNY GROSSMAN GUARD MANAGER-C Work Phone: [facility] Health[facility]Share.; [facility] CenterMarket[facility]. 05-20-2014 15:47-0400 Body surface area Derived from formula 1.85 m2 FANNY ALEGRIAER GUARD MANAGER-C Work Phone: [facility].; [facility] CenterMarketShare. 05-20-2014 15:47-0400 Body weight 86.18 kg FANNY GROSSMAN GUARD MANAGER-C Work Phone: [facility] [employer] Nem[facility] FoundationMarketShare.; [facility] [employer] Nemours FoundationMarketShare. 05-20-2014 15:47-0400 Diastolic blood pressure 78 mm[Hg] FANNY GROSSMAN GUARD MANAGER-C Work Phone: [facility] [employer] [facility] FoundationPromoteU; [facility] [employer] Nemours FoundationMarketShare. Comment on above: Patient Position: Sitting; Cuff Location : Left Arm; Cuff Size: Standard 05-20-2014 15:47-0400 Heart rate 93 /min FANNY GROSSMAN GUARD MANAGER-C Work Phone: [facility] [employer] [facility] FoundationPromoteU; [facility] [employer] Nem[facility] FoundationMarketShare. Comment on above: Pattern: Regular 05-20-2014 15:47-0400 Systolic blood pressure 112 mm[Hg] FANNY GROSSMAN GUARD MANAGER-C Work Phone: [facility] [employer] Nem[facility] FoundationMarketShare.; [facility] [employer] Nemours FoundationMarketShare. Comment on above: Patient Position: Sitting; Cuff Location : Left Arm; Cuff Size: Standard 02-08-2014 14:22-0400 Body height 154.94 cm Odessa Ferris RN [facility] [employer] Nemours FoundationMarketShare.; [facility] CenterTeledata Networks [facility]. 02-08-2014 14:22-0400 Body mass index (BMI) [Ratio] 36.28 kg/m2 Odessa Ferris RN [facility] [employer] Nem[facility] FoundationMarketShare.; [facility] CenterMarketShare. 02-08-2014 14:22-0400 Body surface area Derived from formula 1.86 m2 Odessa Ferris RN [facility] [employer] Nem[facility] FoundationMarketShare.; [facility] CenterMarketShare. 02-08-2014 14:22-0400 Body weight 87.09 kg Odessa Ferris RN [facility], Inc.; [facility] [employer] [facility], Inc. 02-08-2014 14:22-0400 Diastolic blood pressure 80 mm[Hg] Odessa Ferris RN [facility], Inc.; [employer] [facility] [employer] [facility], Inc. Comment on above: Patient Position: Sitting; Cuff Location : Left Arm; Cuff Size: Large 02-08-2014 14:22-0400 Heart rate 79 /min Odessa Ferris RN [facility], [employer].; [employer] [facility] [employer] [facility], Inc. Comment on above: Pattern: Regular 02-08-2014 14:22-0400 Respiratory rate 12 /min Odessa Ferr[facility] [employer] [facility], [employer].; [facility] [employer] [facility], Inc. Comment on above: Pattern: Unlabored 02-08-2014 14:22-0400 Systolic blood pressure 122 mm[Hg] Odessa Ferris RN [facility] [employer] [facility], [employer].; [employer] [facility] [employer]Car [facility] Comment on above: Patient Position: Sitting; Cuff Location : Left Arm; Cuff Size: Large 03-19-2013 13:02-0400 Body height 155.57 cm Odessa Ferris RN [facility], [employer] [facility], Inc[facility] 03-19-2013 13:02-0400 Body mass index (BMI) [Ratio] 34.48 kg/m2 Odessa Ferris RN [facility] [employer] [facility] [employer] [facility] 03-19-2013 13:02-0400 Body surface area Derived from formula 1.83 m2 Odessa Ferris RN [facility] [employer] [facility], [employer] [facility] [employer] [facility] 03-19-2013 13:02-0400 Body temperature 98.7 [degF] Od[facility] [employer] [facility].; [facility] [employer] [facility] Comment on above: Method: Oral 03-19-2013 13:02-0400 Body weight 83.46 kg Odessa Ferris RN [facility] [employer] [facility].; [employer] [facility] [employer] [facility] 03-19-2013 13:02-0400 Diastolic blood pressure 82 mm[Hg] Odessa Ferris RN [facility] [employer] [facility] [employer] [facility] [employer] [facility], [employer]. Comment on above: Patient Position: Sitting; Cuff Location : Left Arm; Cuff Size: Large 03-19-2013 13:02-0400 Heart rate 73 /min Odessa Ferris RN [facility] [employer] [facility] [employer] [facility] [employer] [facility] Comment on above: Pattern: Regular 03-19-2013 13:02-0400 Systolic blood pressure 130 mm[Hg] Odessa Ferris RN [facility] [employer] [facility] [employer] [facility] [employer] [facility] Comment on above: Patient Position: Sitting; Cuff Location : Left Arm; Cuff Size: Large 03-01-2012 13:13-0400 Body height 155.57 cm France Kaur RN [facility] [employer] [facility] [employer] [facility] 03-01-2012 13:13-0400 Body mass index (BMI) [Ratio] 33.92 kg/m2 France Kaur RN [facility], Inc.; [facility] [employer] [facility] 03-01-2012 13:13-0400 Body surface area Derived from formula 1.82 m2 France Kaur RN [facility], Inc.; [facility] [employer] [facility] 03-01-2012 13:13-0400 Body temperature 98.4 [degF] France Kaur RN [facility] [employer] [facility] [employer] [facility] Comment on above: Method: Oral 03-01-2012 13:130400 Body weight 82.1 kg France Kaur RN [facility] [employer] [facility] [employer] [facility] [employer] [facility] 03-01-2012 13:13-0400 Diastolic blood pressure 61 mm[Hg] France Kaur RN [facility] [employer] [facility] [employer] [facility] [place] [employer] [facility] Comment on above: Patient Position: Sitting; Cuff Location : Left Arm; Cuff Size: Standard 03-01-2012 13:13-0400 Heart rate 82 /min France Kaur RN [facility] [employer] [facility] [employer] [facility] Comment on above: Pattern: Regular 03-01-2012 13:13-0400 Systolic blood pressure 94 mm[Hg] France [facility] [employer] [facility] [employer] [facility] Comment on above: Patient Position: Sitting; Cuff Location : Left Arm; Cuff Size: Standard 12-29-2011 14:41-0500 Body height 154.94 cm France Kaur RN [facility], [facility].; [facility], Inc[facility] 12-29-2011 14:41-0500 Body mass index (BMI) [Ratio] 34.39 kg/m2 France Kaur RN [facility] Inc.; [facility], Inc[facility] 12-29-2011 14:41-0500 Body surface area Derived from formula 1.82 m2 France Kaur RN [facility], Inc.; [facility] [employer] [facility] [employer] Inc. 12-29-2011 14:41-0500 Body temperature 98.1 [degF] France [facility] [employer] [facility] [employer] [facility] Comment on above: Method: Oral 12-29-2011 14:41-0500 Body weight 82.56 kg France K[facility] [employer] [facility] 12-29-2011 14:41-0500 Diastolic blood pressure 71 mm[Hg] France Kaur RN [facility] Inc.; [employer] [facility] [employer] [facility] Comment on above: Patient Position: Sitting; Cuff Location : Left Arm; Cuff Size: Standard 12-29-2011 14:41-0500 Heart rate 77 /min France Kaur RN [facility] [employer] [facility].; [employer] [facility] [employer] [facility] Comment on above: Pattern: Regular 12-29-2011 14:41-0500 Systolic blood pressure 109 mm[Hg] France K[facility] [employer] [facility] [employer] [facility] Comment on above: Patient Position: Sitting; Cuff Location : Left Arm; Cuff Size: Standard 08-18-2011 13:33-0400 Body height 154.94 cm CODEE D MORAN [facility].; [facility] [employer] [facility] Foundation[facility] [facility]. 08-18-2011 13:33-0400 Body mass index (BMI) [Ratio] 33.82 kg/m2 [facility] [employer] [facility] [facility]. 08-18-2011 13:33-0400 Body surface area Derived from formula 1.8 m2 MIRTHA [facility] [employer] [facility] FoundationT[employer] [employer] [facility].; [facility] [employer] [facility] FoundationT[employer] [facility]. 08-18-2011 13:33-0400 Body weight 81.19 kg PEEWEELou Doe [facility] [employer] [facility].; [facility] [employer] [facility] FoundationT[facility]. 08-18-2011 13:33-0400 Diastolic blood pressure 78 mm[Hg] [facility]ON[facility] [employer] [facility].; [facility] [employer] [facility]. Comment on above: Patient Position: Sitting; Cuff Location : Left Arm; Cuff Size: Standard 08-18-2011 13:33-0400 Heart rate 66 /min MIRTHA [facility] [employer] [facility].; [facility] [email or web address]. Comment on above: Pattern: Regular 08-18-2011 13:33-0400 Systolic blood pressure 124 mm[Hg] [facility]ON[facility] [employer] [facility].; [facility] [employer] [facility] FoundationT[employer] [facility]. Comment on above: Patient Position: Sitting; Cuff Location : Left Arm; Cuff Size: Standard 05-19-2011 14:24-0400 Diastolic blood pressure 96 mm[Hg] NASREEN FERNÁNDEZ MD Work Phone: [facility] [employer] [facility].; [employer] [facility] [email or web address]. Comment on above: Patient Position: Sitting; Cuff Location : Left Arm; Cuff Size: Large 05-19-2011 14:24-0400 Systolic blood pressure 140 mm[Hg] NASREEN FERNÁNDEZ MD Work Phone: [facility] [employer] [facility].; [place] [employer] [facility] [email or web address]. Comment on above: Patient Position: Sitting; Cuff Location : Left Arm; Cuff Size: Large 05-19-2011 14:13-0400 Body temperature 98.2 [degF] France Kaur RN [employer] [facility] [employer] [facility] Comment on above: Method: Oral 05-19-2011 14:13-0400 Body weight 85.73 kg France Kaur RN [facility] [employer] [facility] [employer] [facility] [place] [employer] [facility] 05-19-2011 14:13-0400 Diastolic blood pressure 90 mm[Hg] France Kaur RN [facility] [employer] [facility] [employer] [facility] [place] [employer] [facility] Comment on above: Patient Position: Sitting; Cuff Location : Left Arm; Cuff Size: Standard 05-19-2011 14:13-0400 Heart rate 62 /min France Kaur RN [facility] [employer] [facility] [employer] [facility] [employer] Comment on above: Pattern: Regular 05-19-2011 14:13-0400 Systolic blood pressure 137 mm[Hg] France Kaur RN [facility] [employer] [facility] [employer] [facility] [place] [employer] [facility] Comment on above: Patient Position: Sitting; Cuff Location : Left Arm; Cuff Size: Standard 05-05-2011 15:0400 Body temperature 98.1 [degF] France Kaur RN [facility] [employer] [facility] [employer] [facility] [employer] [facility] Comment on above: Method: Oral 05-05-2011 15:0400 Body weight 83.46 kg France Kaur RN [facility] [employer] [facility] [employer] [facility] [place] [employer] [facility] 05-05-2011 15:0400 Diastolic blood pressure 79 mm[Hg] France Kaur RN [facility] [employer] [facility] [employer] [facility] [employer] [facility] Comment on above: Patient Position: Sitting; Cuff Location : Left Arm; Cuff Size: Standard 05-05-2011 15:010400 Heart rate 85 /min France Kaur RN [facility] [employer] [facility] [employer] [facility] [employer] Comment on above: Pattern: Regular 05-05-2011 15:01-0400 Systolic blood pressure 116 mm[Hg] France Kaur RN [facility] [employer] [facility] [employer] [facility] [employer] [facility] Comment on above: Patient Position: Sitting; Cuff Location : Left Arm; Cuff Size: Standard 04-14-2011 15:27-0400 Body weight 82.1 kg MIRTHA [facility], Inc.; [facility], Inc[facility] 04-14-2011 15:27-0400 Diastolic blood pressure 77 mm[Hg] MIRTHA Doe [facility], Inc.; [facility] [employer] [facility] Comment on above: Patient Position: Sitting; Cuff Location : Left Arm; Cuff Size: Standard 04-14-2011 15:27-0400 Heart rate 94 /min MIRTHA Doe [facility], Inc.; [facility] [employer] [facility] Comment on above: Pattern: Regular 04-14-2011 15:27-0400 Systolic blood pressure 118 mm[Hg] MIRTHA Doe [facility], Inc.; [facility], Inc[facility] Comment on above: Patient Position: Sitting; Cuff Location : Left Arm; Cuff Size: Standard 03-17-2011 14:30-0400 Body weight 81.65 kg Odessa Ferris RN [facility] [employer] [facility] [employer] [facility] 03-17-2011 14:30-0400 Diastolic blood pressure 76 mm[Hg] Odessa Ferris RN [facility] [employer] [facility] FoundationTeled[employer] Networks Inc.; [facility] [employer] [facility] Comment on above: Patient Position: Sitting; Cuff Location : Left Arm; Cuff Size: Large 03-17-2011 14:30-0400 Heart rate 99 /min Odessa Ferris RN [facility] Inc.; [facility] [employer] [facility] Comment on above: Pattern: Regular 03-17-2011 14:30-0400 Systolic blood pressure 121 mm[Hg] Odessa Ferris RN [facility] [employer] [facility] FoundationT[employer] Inc.; [facility] [employer] [facility] Comment on above: Patient Position: Sitting; Cuff Location : Left Arm; Cuff Size: Large 02-17-2011 13:45-0400 Body weight 82.1 kg Jannette Christian RN [facility] [employer] [facility] [employer] [facility] [employer] [facility] 02-17-2011 13:45-0400 Diastolic blood pressure 84 mm[Hg] Jannette Christian RN [facility] [employer] [facility] FoundationTeled[employer] Networks Inc.; [facility] [employer] [facility], [employer]. Comment on above: Patient Position: Sitting; Cuff Location : Left Arm; Cuff Size: Large 02-17-2011 13:45-0400 Heart rate 105 /min Jannette Christian RN [facility] [employer] [facility].; [employer] [facility] [place] [employer] [facility] Comment on above: Pattern: Regular 02-17-2011 13:45-0400 Systolic blood pressure 128 mm[Hg] Jannette Christian RN [facility] [employer] [facility].; [employer] [facility] [employer] [facility] Comment on above: Patient Position: Sitting; Cuff Location : Left Arm; Cuff Size: Large 01-15-2011 13:03-0500 Body height 154.94 cm Odessa Ferris RN [facility] [employer] [facility].; [employer] [facility] [employer] [facility] 01-15-2011 13:03-0500 Body mass index (BMI) [Ratio] 34.58 kg/m2 Odessa Ferris RN [facility] [employer] [facility].; [employer] [facility] [employer] [facility] 01-15-2011 13:03-0500 Body surface area Derived from formula 1.82 m2 Odessa Ferris RN [facility] [employer] [facility].; [employer] [facility] [employer] [facility] 01-15-2011 13:03-0500 Body weight 83.01 kg Odessa Ferris RN [facility] [employer] [facility], [employer] [facility] [employer] [facility] 01-15-2011 13:03-0500 Diastolic blood pressure 81 mm[Hg] Odessa Ferris RN [facility] [employer] [facility] [employer] [facility] [employer] [facility] Comment on above: Patient Position: Sitting; Cuff Location : Left Arm; Cuff Size: Large 01-15-2011 13:03-0500 Heart rate 80 /min Odessa Ferris RN [facility] [employer] [facility].; [employer] [facility] [employer] [facility] Comment on above: Pattern: Regular 01-15-2011 13:03-0500 Systolic blood pressure 118 mm[Hg] Odessa Ferris RN [facility] [employer] [facility].; [employer] [facility] [place] [facility] Comment on above: Patient Position: Sitting; Cuff Location : Left Arm; Cuff Size: Large 12-16-2010 09:59-0500 Body height 154.94 cm France Kaur RN [facility], Inc.; [employer] [facility], Inc[facility] 12-16-2010 09:59-0500 Body mass index (BMI) [Ratio] 34.2 kg/m2 France Kaur RN [facility], Inc.; [employer] [facility], Inc[facility] 12-16-2010 09:59-0500 Body surface area Derived from formula 1.81 m2 France Kaur RN [facility], Inc.; [facility] [employer] [facility] 12-16-2010 09:59-0500 Body temperature 98 [degF] France Kaur RN [facility], Inc.; [facility] [employer] [facility] Comment on above: Method: Oral 12-16-2010 09:59-0500 Body weight 82.1 kg France Kaur RN [facility], Inc.; [employer] [facility] [employer] [facility] 12-16-2010 09:59-0500 Diastolic blood pressure 75 mm[Hg] France Kaur RN [facility], Inc.; [employer] [facility] [employer] [facility] Comment on above: Patient Position: Sitting; Cuff Location : Left Arm; Cuff Size: Standard 12-16-2010 09:59-0500 Heart rate 91 /min France Kaur RN [facility], Inc.; [employer] [facility] [employer] [facility] Comment on above: Pattern: Regular 12-16-2010 09:59-0500 Systolic blood pressure 110 mm[Hg] France Kaur RN [facility], Inc.; [employer] [facility] [employer] [facility] Comment on above: Patient Position: Sitting; Cuff Location : Left Arm; Cuff Size: Standard 11-13-2010 14:51-0500 Body height 154.94 cm France Kaur RN [facility], Inc.; [employer] [facility] [employer] [facility] 11-13-2010 14:51-0500 Body mass index (BMI) [Ratio] 34.39 kg/m2 France Kaur RN [facility], Inc.; [facility] [employer] [facility] 11-13-2010 14:51-0500 Body surface area Derived from formula 1.82 m2 France Kaur RN [facility], Inc.; [employer] [facility] [employer] [facility] 11-13-2010 14:51-0500 Body temperature 98.1 [degF] France Kaur RN [facility], [employer] [facility] [employer] [facility] Comment on above: Method: Oral 11-13-2010 14:51-0500 Body weight 82.56 kg France Kaur RN [facility], Inc.; [employer] [facility] [employer] [facility] 11-13-2010 14:51-0500 Diastolic blood pressure 75 mm[Hg] France Kaur RN [facility], Inc.; [employer] [facility] [employer] [facility] Comment on above: Patient Position: Sitting; Cuff Location : Left Arm; Cuff Size: Standard 11-13-2010 14:51-0500 Heart rate 89 /min France Kaur RN [facility], [employer] [facility] [employer] [facility] Comment on above: Pattern: Regular 11-13-2010 14:51-0500 Systolic blood pressure 107 mm[Hg] France Kaur RN [facility] [employer] [facility].; [employer] [facility] [employer] [facility] Comment on above: Patient Position: Sitting; Cuff Location : Left Arm; Cuff Size: Standard Encounters Encounter Date Encounter Type Care Provider Facility Start: 07-23-2025 ambulatory Harjeet Carcamo Facility:[facility] Start: 03-22-2025 End: 03-22-2025 Orders Only Reuben Lucero PA-C Work Phone: Orthopaedics Comment on above: Pain in left hip (Pr imary Dx) Start: 11-21-2024 End: 11-21-2024 Patient encounter procedure [facility]UR [facility]. Start: 11-21-2024 Review MARIAN Rico MD Work Phone: [facility], [facility]. Start: 07-25-2024 End: 07-25-2024 ambulatory Fanny Grossman Facility[facility] Start: 07-18-2024 End: 07-18-2024 Historical Summary FANNY ALEGRIAER GUARD MANAGER-C Work Phone: [employer] Start: 02-15-2024 [facility] Start: 01-11-2024 End: 01-11-2024 Office outpatient visit 15 minutes FANNY BAKERJOANIE GUARD MANAGER-C Work Phone: [employer] Start: 01-11-2024 End: 01-11-2024 Medication Refill/Order FANNY BAKERJOANIE GUARD MANAGER-C Work Phone: [employer] Start: 08-04-2023 End: 08-04-2023 ambulatory FANNY ZAMUDIO [facility] Start: 08-04-2023 End: 08-04-2023 Lab Only FANNY ROSENDAKELLEYMELANYER GUARD MANAGER-C Work Phone: [employer] Start: 07-15-2023 End: 07-15-2023 Follow-up encounter FANNY GROSSMAN GUARD MANAGER-C Work Phone: [employer] Start: 06-22-2023 End: 06-22-2023 ambulatory FANNY LIZZ [facility] Start: 06-22-2023 End: 06-22-2023 Procedure Order FANNY ALEGRIAER GUARD MANAGER-C Work Phone: [employer] Start: 06-17-2023 End: 06-17-2023 Follow-up encounter FANNY ALEGRIACALLIE GUARD MANAGER-C Work Phone: [facility] Start: 06-15-2023 End: 06-15-2023 Office outpatient visit 15 minutes FANNY RENNYJOYCEJOANIE GUARD MANAGER-C Work Phone: [facility] Start: 08-19-2022 End: 08-19-2022 ambulatory [facility] Work Phone: Start: 08-19-2022 End: 08-19-2022 Patient encounter procedure [facility], Specimen Start: 08-06-2022 End: 08-06-2022 Manual pelvic examination FANNY WESLEY GUARD MANAGER-C Work Phone: [facility] Start: 08-02-2022 End: 08-02-2022 Manual pelvic examination FANNY HERZOGHOLDEN GUARD MANAGER-C Work Phone: [facility] [employer] Start: 08-02-2022 End: 08-02-2022 Medication Refill/Order FANNY GROSSMAN GUARD MANAGER-C Work Phone: [facility] [employer] Start: 07-28-2022 End: 07-28-2022 Office outpatient visit 15 minutes FANNY ALEGRIAER GUARD MANAGER-C Work Phone: [facility] Start: 06-24-2022 End: 06-24-2022 Follow-up encounter FANNY ROSENDAKELLEYJOANIE GUARD MANAGER-C Work Phone: [facility] Start: 06-23-2022 End: 06-23-2022 Office outpatient visit 15 minutes FANNY GROSSMAN GUARD MANAGER-C Work Phone: [facility] Start: 02-11-2021 End: 02-11-2021 Office outpatient visit 15 minutes FANNY GROSSMAN GUARD MANAGER-C Work Phone: [facility] Start: 04-04-2020 End: 04-04-2020 Transition of Care FANNY WESLEY GUARD MANAGER-C Work Phone: [facility] Start: 03-22-2020 End: 03-22-2020 Follow-up encounter FNANY GROSSMAN GUARD MANAGER-C Work Phone: [facility] [facility] [employer] Start: 03-21-2020 End: 03-21-2020 Lab Only FANNY GROSSMAN GUARD MANAGER-C Work Phone: [facility] Start: 12-20-2019 End: 12-20-2019 Follow-up encounter FANNY GROSSMAN GUARD MANAGER-C Work Phone: [employer] [facility] [employer] Start: 12-19-2019 End: 12-19-2019 Patient encounter procedure FANNY GROSSMAN GUARD MANAGER-C Work Phone: [employer]; [facility] Start: 12-19-2019 End: 12-19-2019 Periodic preventive med est patient 18-39 yrs FANNY GROSSMAN GUARD MANAGER-C Work Phone: [facility] Start: 11-24-2019 End: 11-24-2019 Follow-up encounter FANNY GROSSMAN GUARD MANAGER-C Work Phone: [facility] Start: 11-23-2019 End: 11-23-2019 Lab Only FANNY GROSSMAN GUARD MANAGER-C Work Phone: [facility] Start: 11-22-2019 End: 11-22-2019 Lab Only FANNY GROSSMAN GUARD MANAGER-C Work Phone: [employer] [facility] [employer] Start: 09-07-2019 End: 09-07-2019 Injection/immunization only FANNY GROSSMAN GUARD MANAGER-C Work Phone: [facility] Start: 06-07-2019 End: 06-07-2019 Follow-up encounter FANNY GROSSMAN GUARD MANAGER-C [facility] Start: 06-06-2019 End: 06-06-2019 Office outpatient visit 15 minutes FANNY GROSSMAN GUARD MANAGER-C Work Phone: [facility] Start: 02-15-2019 End: 02-15-2019 Medication Refill/Order FANNY GROSSMAN GUARD MANAGER-C Work Phone: [facility]. Start: 01-01-2019 End: 01-01-2019 Office outpatient visit 15 minutes FANNY GROSSMAN GUARD MANAGER-C Work Phone: [facility]. Start: 11-27-2018 End: 11-27-2018 Office outpatient visit 15 minutes FANNY GROSSMAN GUARD MANAGER-C Work Phone: [facility]. Start: 11-16-2018 End: 11-16-2018 Office outpatient visit 15 minutes FANNY GROSSMAN GUARD MANAGER-C Work Phone: [facility] Start: 06-12-2018 End: 06-12-2018 Results Review FANNY GROSSMAN GUARD MANAGER-C [facility] Start: 06-07-2018 End: 06-12-2018 Patient encounter NASREEN Sandra FERNÁNDEZ Facility:[facility] Start: 06-07-2018 End: 06-07-2018 Lab Only FANNY GROSSMAN GUARD MANAGER-C Work Phone: [facility]. Start: 06-07-2018 End: 06-07-2018 Physical examination FANNY GROSSMAN GUARD MANAGER-C Work Phone: [facility]. Start: 01-27-2018 End: 01-27-2018 Results Review FANNY GROSSMAN GUARD MANAGER-C [facility] Start: 01-10-2018 End: 01-10-2018 Office outpatient visit 15 minutes FANNY GROSSMAN GUARD MANAGER-C Work Phone: [facility] Start: 12-21-2017 End: 12-21-2017 Results Review FANNY GROSSMAN GUARD MANAGER-C Work Phone: [employer] [place] [employer] Start: 12-20-2017 End: 12-20-2017 Office outpatient visit 15 minutes FANNY GROSSMAN GUARD MANAGER-C Work Phone: [facility] Start: 08-13-2017 End: 08-13-2017 Results Review FANNY GROSSMAN GUARD MANAGER-C Work Phone: [facility] Start: 08-10-2017 End: 08-10-2017 Office outpatient visit 15 minutes FANNY GROSSMAN GUARD MANAGER-C Work Phone: [facility] Start: 07-27-2016 End: 07-27-2016 Results Review FANNY GROSSMAN GUARD MANAGER-C Work Phone: [facility] [employer] Start: 07-21-2016 End: 07-21-2016 Patient encounter procedure FANNY GROSSMAN GUARD MANAGER-C Work Phone: [employer]; [facility] Start: 07-21-2016 End: 07-21-2016 Patient encounter status FANNY GROSSMAN GUARD MANAGER-C Work Phone: [employer]; [employer]. Start: 07-21-2016 End: 07-21-2016 Periodic preventive med est patient 18-39 yrs FANNY GROSSMAN GUARD MANAGER-C Work Phone: [facility] Start: 03-30-2016 End: 03-30-2016 Historical Summary FANNY GROSSMAN GUARD MANAGER-C Work Phone: [facility] [employer] [facility] Start: 12-24-2015 End: 12-25-2015 Historical Summary FANNY GROSSMAN GUARD MANAGER-C Work Phone: [facility]. Start: 12-16-2015 End: 12-16-2015 Results Review FANNY GROSSMAN GUARD MANAGER-C Work Phone: [facility]. Start: 05-21-2014 End: 05-21-2014 Results Review FANNY GROSSMAN GUARD MANAGER-C Work Phone: [facility] Start: 05-20-2014 End: 05-20-2014 Patient encounter procedure FANNY GROSSMAN GUARD MANAGER-C Work Phone: [facility] [employer] [facility] FoundationMarket[facility] Start: 02-12-2014 End: 02-12-2014 Historical Summary FANNY GROSSMAN GUARD MANAGER-C Work Phone: [facility] [employer] [facility] Start: 02-08-2014 End: 02-08-2014 Medication Refill/Order FANNY GROSSMAN GUARD MANAGER-C Work Phone: [facility] [employer] [facility] FoundationMarket[facility] Start: 02-08-2014 End: 02-08-2014 Examination of eyes and vision FANNY GROSSMAN GUARD MANAGER-C Work Phone: [facility]Prom[facility]U; Performance Indicator [facility] [employer] [facility] FoundationMarketShare. Start: 02-08-2014 End: 02-08-2014 Patient encounter procedure FANNY GROSSMAN GUARD MANAGER-C Work Phone: [place] [employer] [facility] [employer] [facility] FoundationMarketShare. Start: 02-08-2014 End: 02-08-2014 Patient encounter status FANNY ALEGRIAER GUARD MANAGER-C Work Phone: [facility] FoundationMarketShare.; Performance Indicator [facility] [employer] [facility] FoundationMarketShare. Start: 03-22-2013 End: 03-26-2013 Results Review FANNY GROSSMAN GUARD MANAGER-C Work Phone: [facility] Start: 03-20-2013 End: 03-20-2013 Results Review FANNY GROSSMAN GUARD MANAGER-C Work Phone: [facility] Start: 03-19-2013 End: 03-19-2013 Patient encounter procedure FANNY GROSSMAN GUARD MANAGER-C Work Phone: [facility] Start: 03-02-2012 End: 03-02-2012 Nutrition therapy FANNY GROSSMAN GUARD MANAGER-C Work Phone: [facility] Start: 03-01-2012 End: 03-01-2012 Patient encounter procedure FANNY GROSSMAN GUARD MANAGER-C Work Phone: [facility] Start: 12-29-2011 End: 12-29-2011 Patient encounter procedure FANNY GROSSMAN GUARD MANAGER-C Work Phone: [facility] Start: 08-18-2011 End: 08-18-2011 Follow-up encounter FANNY GROSSMAN GUARD MANAGER-C Work Phone: [facility] Start: 07-07-2011 End: 07-07-2011 Medication Refill/Order FANNY GROSSMAN GUARD MANAGER-C Work Phone: [facility] Start: 05-19-2011 End: 05-19-2011 OB VISIT FANNY GROSSMAN GUARD MANAGER-C Work Phone: [facility] Start: 05-05-2011 End: 05-05-2011 OB VISIT FANNY GROSSMAN GUARD MANAGER-C Work Phone: [facility] Start: 04-15-2011 End: 04-15-2011 Results Review FANNY GROSSMAN GUARD MANAGER-C Work Phone: [facility] [employer] [facility], [employer]. Start: 04-14-2011 End: 04-14-2011 OB VISIT FANNY GROSSMAN GUARD MANAGER-C Work Phone: [facility] [employer] [facility], [employer]. Start: 03-17-2011 End: 03-17-2011 OB VISIT FANNY GROSSMAN GUARD MANAGER-C Work Phone: [facility] [employer] [facility], Inc[employer] Start: 02-20-2011 End: 02-20-2011 Ultrasound FANNY GROSSMAN GUARD MANAGER-C Work Phone: [facility] [employer] [facility], [employer]. Start: 02-17-2011 End: 02-17-2011 OB VISIT FANNY GROSSMAN GUARD MANAGER-C Work Phone: [facility] [employer] [facility], [employer]. Start: 01-18-2011 End: 01-18-2011 Follow-up encounter FANNY GROSSMAN GUARD MANAGER-C Work Phone: [facility] trip.me. Start: 01-15-2011 End: 01-15-2011 Historical Summary FANNY GROSSMAN GUARD MANAGER-C Work Phone: [facility] [employer] [facility], [employer]. Start: 01-15-2011 End: 01-15-2011 OB VISIT FANNY GROSSMAN GUARD MANAGER-C Work Phone: [facility] [employer] Start: 01-11-2011 End: 01-11-2011 Results Review FANNY GROSSMAN GUARD MANAGER-C Work Phone: [facility] [employer]. Start: 12-22-2010 End: 12-22-2010 Follow-up encounter FANNY GROSSMAN GUARD MANAGER-C Work Phone: [facility] [employer], [employer]. Start: 12-18-2010 End: 12-18-2010 Results Review FANNY GROSSMAN GUARD MANAGER-C Work Phone: [place] [employer] [facility]. Start: 12-16-2010 End: 12-16-2010 OB VISIT FANNY GROSSMAN GUARD MANAGER-C Work Phone: [facility] Start: 12-08-2010 End: 12-08-2010 Historical Summary FANNY GROSSMAN GUARD MANAGER-C Work Phone: [facility] Start: 11-23-2010 End: 11-23-2010 Patient encounter procedure FANNY GROSSMAN GUARD MANAGER-C Work Phone: [facility] Start: 11-13-2010 End: 11-13-2010 Patient encounter procedure FANNY GROSSMAN GUARD MANAGER-C Work Phone: [facility] Start: 04-23-2010 End: 04-23-2010 Historical Summary FANNY GROSSMAN GUARD MANAGER-C Work Phone: [facility] Patient encounter procedure FANNY GROSSMAN GUARD MANAGER-C Work Phone: [facility]; [facility]ITAL[facility] [employer] [facility] FoundationMarketShare Physical examination FANNY Crane JEVONLISA GUARD MANAGER-C Work Phone: [facility]; [facility] Procedures Date Procedure Procedure Detail Performing Clinician Start: 11-21-2024 End: 11-21-2024 Collj & interpj physiol data min 30 min ea 30 d MARIAN KAUR MD Work Phone: Start: 11-21-2024 End: 11-21-2024 Dischrg meds reconciled w/current med list MARIAN KAUR MD Work Phone: Start: 07-18-2024 End: 07-18-2024 Screening mammography Martha MCHUGH Comment on above: Normal. Start: 01-11-2024 End: 01-11-2024 Collj & interpj physiol data min 30 min ea 30 d FANNY M HOFSTETTER GUARD MANAGER-C Work Phone: Start: 01-11-2024 End: 01-11-2024 Collj & interpj physiol data min 30 min ea 30 d Niecy Overholt DISPATCH ASSOCIATE Start: 07-15-2023 End: 07-15-2023 Xtrnl ecg & 48 hr record scan stor w/r&i FANNY GROSSMAN GUARD MANAGER-C Work Phone: Comment on above: needs at least 7 day s Start: 06-15-2023 End: 06-15-2023 Collj & interpj physiol data min 30 min ea 30 d FANNY GROSSMAN GUARD MANAGER-C Work Phone: Start: 08-16-2022 Urinalysis FANNY TREVINOETTER GUARD MANAGER-C Work Phone: Start: 07-28-2022 End: 07-28-2022 Dischrg meds reconciled w/current med list Stan MORAN MD Work Phone: Start: 07-28-2022 Urinalysis FANNY TREVINOETTER GUARD MANAGER-C Work Phone: Start: 11-25-2021 End: 11-25-2021 Microscopic examination of cervical Papanicolaou smear [facility] Comment on above: Normal. Dr. Carlson Start: 02-11-2021 End: 02-11-2021 Dischrg meds reconciled w/current med list FANNY BAKERJOANIE GUARD MANAGER-C Work Phone: Start: 02-11-2021 End: 02-11-2021 [facility] Comment on above: Negative. Start: 12-19-2019 End: 12-19-2019 Dischrg meds reconciled w/current med list FANNY Storm ROSENDAHARJITAMALIA GUARD MANAGER-C Work Phone: Start: 06-06-2019 End: 06-06-2019 Dischrg meds reconciled w/current med list FANNY Storm WESLEY GUARD MANAGER-C Work Phone: Start: 01-01-2019 End: 01-01-2019 Dischrg meds reconciled w/current med list AXEL CARCAMO MD Work Phone: Start: 11-16-2018 End: 11-16-2018 Collj & interpj physiol data min 30 min ea 30 d AXEL CARCAMO MD Work Phone: Start: 06-07-2018 End: 06-07-2018 Obtaining screen pap smear JOSIE GRAEME Start: 07-21-2016 End: 07-21-2016 Obtaining screen pap smear NASREEN LEDESMA MD Work Phone: Start: 12-16-2015 End: 12-16-2015 Suzette Ashford DISPATCH ASSOCIATE Comment on above: Usman Moran Start: 02-08-2014 End: 02-08-2014 Adacel Niecy Ashford CMA Start: 02-08-2014 End: 02-08-2014 Obtaining screen pap smear Stan MORAN MD Work Phone: Start: 02-08-2014 End: 02-08-2014 Unclassified biologics Stan MORAN MD Work Phone: Start: 05-19-2011 End: 05-19-2011 Ob care antepartum vag dlvr & NASREEN FERNÁNDEZ MD Work Phone: Start: 05-05-2011 End: 05-05-2011 Ob care antepartum vag dlvr & NASREEN FERNÁNDEZ MD Work Phone: Start: 04-14-2011 End: 04-14-2011 Ob care antepartum vag dlvr & MIRTHA MORAN Start: 03-17-2011 End: 03-17-2011 Ob care antepartum vag dlvr & NASREEN FERNÁNDEZ MD Work Phone: Start: 02-20-2011 End: 02-20-2011 Us preg uterus after 1st trimest 1/ gestation NASREEN FERNÁNDEZ MD Work Phone: Comment on above: 8:15 AM Start: 02-17-2011 End: 02-17-2011 Ob care antepartum vag dlvr & NASREEN FERNÁNDEZ MD Work Phone: Start: 01-15-2011 End: 01-15-2011 Ob care antepartum vag dlvr & GEORGE SUE MD Work Phone: Start: 12-16-2010 End: 12-16-2010 Obtaining screen pap smear NASREEN LEDESMA MD Work Phone: Start: 12-16-2010 End: 12-16-2010 Ob care antepartum vag dlvr & NASREEN FERNÁNDEZ MD Work Phone: Blood type A + FANNY Storm LORETTA EVERTJOANIE GUARD MANAGER-C Work Phone: section Niecy Overho lt DISPATCH ASSOCIATE Comment on above: 05/12, x 2 with TL section Niecy Overho lt DISPATCH ASSOCIATE Comment on above: 05/12, x 2 with TL section Martha BARROSOA Comment on above: 05/12, x 2 with TL Computerized axial t omography of brain FANNY Storm WESLEY GUARD MANAGER-C Work Phone: Comment on above: 05/25/06, Mild irreg post eclampsia Electroencephalogram FANNY Storm WESLEY GUARD MANAGER-C Work Phone: Comment on above: 05/12 abn, 11/13 Nl History of Varicella or Varicella Immunization Niecy Overholt DISPATCH ASSOCIATE Comment on above: had disease History of Varicella or Varicella Immunization Niecy Overholt DISPATCH ASSOCIATE Comment on above: had disease History of Varicella or Varicella Immunization Martha Solano RMA Comment on above: had disease MRI of brain and brain stem FANNY Storm RENNYJOYCEMELANYER GUARD MANAGER-C Work Phone: Comment on above: 11/13 Nl Stool for Occult Blood Niecy Overholt DISPATCH ASSOCIATE Comment on above: neg x 3 03/2013; Stool for Occult Blood Niecy Overholt DISPATCH ASSOCIATE Comment on above: neg x 3 03/2013; Stool for Occult Blood Kendell Solano RMA Comment on above: neg x 3 03/2013; Total hysterectomy Martha mane RMA Comment on above: 2022 Plan of Treatment Date Care Activity Detail Author Start: 07-08-2025 Influenza vaccination Influenz a Vaccine (Season Ended) [facility] Start: 04-03-2025 End: 04-03-2025 Patient encounter procedure Radiology Comment on above: Left hip and upper l eg pain (WebAppointment Request #[id number]) Start: 11-21-2024 Medical; ANXIETY - # MUST KEEP FOR MED REFILL Medical; ANXIETY - # MUST KEEP FOR MED REFILL [facility] [employer]. Start: 21-Nov-2024 14:15-05:00 MD MARIAN KAUR Appointment Request BENNETT [employer]. Start: 2024 Screening for malign ant neoplasm of breast Mammogram Screening [facility] Start: 07-08-2024 Covid-19 Vaccine () Covid-19 Vaccine () [facility] Start: 06-13-2024 Patient encounter procedure Medical; ANXIETY - [facility] [employer]. Start: 13-Jun-2024 13:15-04:00 JACKIE GROSSMAN Appointment Request [facility] [employer]. Start: 08-04-2023 Culture bacterial quanttative colony count urine [employer]; [facility] [employer]. Start: 08-04-2023 Culture bct isol&prsmptv id isolate ea urine [employer]; [employer]. Start: 06-22-2023 Prgrmg dev eval scrm s phys/qhp in person SET UP FOR 30 DAY CARDIAC EVENT MONITOR ([id number]) Start: 22-Jun-2023 Intent Comments: please do 14 days [employer].; [employer]. Comment on above: please do 14 days Start: 08-19-2022 Procedure [facility] Work Phone: Start: 08-02-2022 Us pelvic nonobstetr ic real-time image complete US PELVIS, COMPLETE ([id number]) Start: 02-Aug-2022 Intent [employer].; [facility] [employer]. Start: 07-28-2022 Culture bacterial quanttative colony count urine [employer] [facility] Start: 06-23-2022 Collj & interpj phys iol data min 30 min ea 30 d QUERY OARRS REPORT ([id number]) Start: 23-Jun-2022 Intent [facility]ulfurCell, Inc.; [facility], Inc[facility] Start: 02-11-2021 Collj & interpj phys iol data min 30 min ea 30 d QUERY OARRS REPORT ([id number]) Start: 11-Feb-2021 Intent [facility], Inc.; [facility], Inc. Start: 03-21-2020 Iron binding capacity E [employer], [employer].; Performance Indicator [facility] [employer] [facility], Inc. Start: 01-01-2019 Patient Education DEPRESSION I ndication: Depression, unspecified depression type Start: 01-Jan-2019 Instruction Type: Patient Education [facility] FoundationMarketShare.; [facility] [employer] [facility], Inc[employer] Start: 11-27-2018 Patient Education [facility] [employer] [facility], Inc.; [facility] [employer] [facility], Inc. Start: 11-16-2018 Patient Education [facility] [employer], [employer].; [facility], Inc. Start: 06-07-2018 Patient Education [facility] [employer] [facility], Inc.; [facility] [employer] [facility], Inc. Start: 01-10-2018 Blood count complete automated [facility].; Performance Indicator [facility] [employer] [facility], Inc. Work Phone: Start: 12-21-2017 Assay of [id number] [facility].; [facility] [employer] [facility], Inc. Start: 12-21-2017 Assay of ferritin [facility].; [employer] [facility] [employer], Inc. Start: 12-21-2017 Iron binding capacity E [employer].; [employer] [facility] [employer] [facility], Inc. Start: 12-21-2017 Assay of iron [facility] [employer] [facility] FoundationMarketShare.; [employer] [facility] [employer] [facility], Inc. Start: 08-10-2017 Culture bacterial quanttative colony count urine [employer].; [employer]. Start: 02-08-2014 Skin test tuberculos is intradermal [employer].; [employer], [employer]. Start: 02-08-2014 End: 02-08-2014 Screening test visual acuity quantitative bilat VISUAL ACUITY SCREEN ([id number]) Date: 08-Feb-2014 [employer].; [employer]. Start: 08-18-2011 Patient Education C ARE Indication: follow-up Start: 18-Aug-2011 Instruction Type: Patient Education [employer].; [employer]. Start: 12-16-2010 Patient Education IN STRUCTIONS - GENERAL Indication: Supervision of normal subsequent Start: 16-Dec-2010 Instruction Type: Patient Education [employer].; [employer], [employer]. Start: 11-13-2010 Patient Education Plantar Fasc iitis *: fasciitis Indication: Plantar fasciitis Start: 13-Nov-2010 Instruction Type: Patient Education [employer].; [employer], [employer]. Start: 2005 Screening for malign ant neoplasm of cervix Cervical Cancer Screening [facility] Start: 2003 Hepatitis B Vaccine (1 of 3 - 19+ 3-dose series) Hepatitis B Vaccine (1 of 3 - 19+ 3-dose series) [facility] Start: 2003 Urine microalbumin profile DTaP,Tdap,Td Vaccine (1 - Tdap) [facility] Start: 2002 Anxiety Screening Anxiety Screening [facility] Start: 2002 Depression Screening Depression Scre ening [facility] Start: 2002 Hepatitis C screening Hepatitis C Sc reening [facility] Start: 2002 HIV screening HIV Screening [facility] Procedure [facility] Work Phone: End: 04-21-2026 XR Hip - left AP and Lateral XR HIP 2V AP/LAT LEFT (AK,FL,ME,UN) Radiology Routine Pain in left hip 1 Occurrences starting 03/22/2025 until 04/21/2026 [facility] Work Phone: Comment on above: 1 Occurrences starti ng 03/22/2025 until 04/21/2026 Immunizations Immunization Date Immunization Notes Care Provider Fa ludwin 09-07-2019 influenza, injectabl e, quadrivalent, contains preservative FANNY HOFSTETTER GUARD MANAGER-C Work Phone: [facility]; [facility] Comment on above: Site: Left DeltoidVI S Given: * Influenza - Inactivated (06/21/2019) 09-07-2019 influenza virus vaccine, unspecified formulation FANNY HOFSTETTER GUARD MANAGER-C Work Phone: [facility] [employer] [facility]PromoteU; [employer] [facility] trip.me 09-07-2018 influenza virus vaccine, unspecified formulation FANNY HOFSTETTER GUARD MANAGER-C Work Phone: [facility] [employer] [facility] FoundationPromoteU; [facility] [employer] [facility] FoundationPromoteU Comment on above: at work 08-10-2017 influenza virus vaccine, unspecified formulation FANNY HOFSTETTER GUARD MANAGER-C Work Phone: [facility] [employer] [facility] FoundationPromoteU; [facility] [employer] [facility] FoundationMarketShare. Comment on above: Will get at work 02-08-2014 tetanus toxoid, redu jhoan diphtheria toxoid, and acellular pertussis vaccine, adsorbed FANNY HOFSTETTER GUARD MANAGER-C Work Phone: [facility] [employer] [facility] FoundationPromoteU; [employer] [facility] [employer] [facility] FoundationMarketShare. Comment on above: Site: Deltoid (Left) 02-08-2014 *IMMUNIZATION ADMIN ([id number]) FANNY HOFSTETTER GUARD MANAGER-C Work Phone: [facility] FoundationPromoteU; Performance Indicator [facility] trip.me. 08-18-2011 influenza, seasonal, injectable FANNY HOFSTETTER GUARD MANAGER-C Work Phone: [facility] [employer] [facility] FoundationPromoteU; [facility] [employer] [facility] FoundationPromoteU Comment on above: Site: Deltoid (Left) VIS Given: * Inactivated Influenza Vaccine (06/16/2010) 08-18-2011 IMMUNIZATION ADMIN ([id number]) FANNY GROSSMAN GUARD MANAGER-C Work Phone: [facility]; [facility] CenterTeledata Networks [facility] 08-07-2010 influenza, seasonal, injectable FANNY GROSSMAN GUARD MANAGER-C Work Phone: [facility]; [facility]Market[facility] Payers Date Payer Category Payer Self-pay [id number] 2023 Unknown [id number] 2019 Blue [employer] Blue Shield BLUE CARD PPO OOS [id number] 2018 Unknown [id number] 1984 Unknown [id number] 1984 Unknown [id number] 1984 Unknown [id number] Unknown [facility] *DO NOT USE* [id number] Unknown ANTHEM Unknown [id number] Unknown [id number] Social History Date Type Detail Facility Start: 05-21-2020 Tobacco smoking status AKIS Unknown if ever smoked [facility] Work Phone: Start: 1985 Sex Assigned At Female [facility] Work Phone: Alcohol Use: Alcohol Use: ; 1 to 7 drinks per week. 1 drink per occasion. [employer]peas; [facility] [employer] [employer] Start: 04-16-2020 End: 10-14-2020 Current Work/Study Status Current Work/Study Status [facility] [employer]; [employer] [employer] [employer] [facility] [employer] [facility] FoundationPromoteU Highest Education Le reji Attained: Highest Education Level Attained: ; College graduate. [facility] FoundationPromoteU; [facility] [employer] [facility] HospitalVictor[facility] Medical Systems. Marital status: Marital status: ; . adFreeq [facility] FoundationMarketShare.; [employer] [facility] [employer] [facility] HospitalVoolgo [facility] FoundationMarketShare Tobacco use: Tobacco use: ; F ormer smoker. [employer] [facility] FoundationMarketShare.; [facility]K [employer] [facility] [employer] Nem[facility] FoundationMarketShare. Full-time [facility] [employer]; [employer] [employer] [employer] [facility] [employer] [facility] FoundationMarketShare. Work Phone: College graduate [facility] [employer] Nem[facility] FoundationMarketShare.; [facility] [employer] Work Phone: Occasional alcohol use [facility] [employer].; [facility] [employer] Work Phone: Start: 04-16-2020 Ex-smoker [facility] FoundationMarketShare.; [facility] [employer] Work Phone: [facility] [employer]; [employer] [employer] [employer] [facility] [employer]me. Work Phone: End: 04-16-2008 History of tobacco use Current smoker [facility] End: 04-16-2008 History of tobacco use Cigarette Smoker [facility] Start: 04-16-2020 Tobacco use and exposure Smokeless tobacco non-user [facility] Start: 04-16-2020 Alcoholic beverage intake Current drinker of alcohol (finding) [facility] Start: 04-16-2020 End: 10-14-2020 Alcohol Use Disorder Identification Test - Consumption [AUDIT-C] [facility] How often to you hav e a drink containing alcohol? 2-4 times a month [facility] How many standard dr inks containing alcohol do you have on a typical day? 1 or 2 [facility] How often do you hav e 6 or more drinks on 1 occasion? Less than monthly [facility] National Score (1-10 0), lower number is lower risk Not on file [facility] Start: 1985 Sex assigned at Not on file [facility] Evaluation note Note Date & Type Note Facility Evaluation note No assessment information [facility] Work Phone: Evaluation note Note Date & Type Note Facility Evaluation note Diagnosis Pain in left hip- Primary Pain in joint, pelvic region and thigh documented in this encounter [facility] Summary Purpose Family History No Family History Records Found Brother (s) Status:Active Comments:In good health. 1. Father Status:Active Comments:1960, H [place], [place], CABG Sep 2018 Mother Status:Active Comments:1955 [place] gra[place], Depression Sister (s) Status:Active Comments:1. In g ood health. 1/2 migraines and Asthma, 1 depression Brother (s) Status:Active Comments:In good health. 1. Father Status:Active Comments:1960, [place], CABG Sep 2018 Mother Status:Active Comments:1955 [place], Depression Sister (s) Status:Active Comments:1. In g ood health. 1/2 migraines and Asthma, 1 depression Brother (s) Status:Active Comments:In good health. 1. Father Status:Active Comments:1960, [place], [place], CABG Sep 2018 Mother Status:Active Comments:1955 [place], Depression Sister (s) Status:Active Comments:1. In g ood health. 1/2 migraines and Asthma, 1 depression Brother (s) Status:Active Comments:In good health. 1. Father Status:Active Comments:196, H [place], [place], CABG Sep 2018 Mother Status:Active Comments:1955 Lucy rodriguez, Depression Sister (s) Status:Active Comments:1. In g ood health. 1/2 migraines and Asthma, 1 depression Brother (s) Status:Active Comments:In good health. 1. Father Status:Active Comments:89, [place], CABG Sep 2018 Mother Status:Active Comments:1956 Mi michael, Depression Sister (s) Status:Active Comments:1. In g ood health. 1/2 migraines and Asthma, 1 depression Brother (s) Status:Active Comments:In good health. 1. Father Status:Active Comments:1960, [place], CABG Sep 2018 Mother Status:Active Comments:1955 Mi michael, Depression Sister (s) Status:Active Comments:1. In g ood health. 1/2 migraines and Asthma, 1 depression Brother (s) Status:Active Comments:In good health. 1. Father Status:Active Comments:196, [place], CABG Sep 2018 Mother Status:Active Comments:195 Mi michael, Depression Sister (s) Status:Active Comments:1. In g ood health. 1/2 migraines and Asthma, 1 depression Brother (s) Status:Active Comments:In good health. 1. Father Status:Active Comments:1960, [place], CABG Sep 2018 Mother Status:Active Comments:1956 Mi michael, Depression Sister (s) Status:Active Comments:1. In g ood health. 1/2 migraines and Asthma, 1 depression Advance Directives No Advanced Directives Records Found Advance Directive Response Recorded Date/ Time Living Will No May 21, 2020 8:06am Power of Machine Sewer No May 21 0 8:06am Additional Source Comments INFORMATION SOURCE (unrecogn ized section and content) DATE CREATED AUTHOR 06/19/2018 [facility] ([place]) DATE CREATED AUTHOR AUTHOR'S ORGANIZ ATION 08/12/2023 [facility] DATE CREATED AUTHOR AUTHOR'S ORGANIZ ATION 02/16/2024 [facility] DATE CREATED AUTHOR AUTHOR'S ORGANIZ ATION 07/20/2025 [facility] Goals (unrecognized section and content) Goals may be documented in a n alternate section Source Comments (unrecognize d section and content) In the event this informatio n is protected by the Federal Confidentiality of Alcohol and Drug Abuse Patient Records regulations: The Federal rules restrict any use of the information to criminally investigate or prosecute any alcohol or drug abuse patient.[facility] FOR RECORDS PERTAINING TO PATIENTS WHO ARE OR HAVE BEEN ENROLLED IN A CHEMICAL DEPENDENCY/SUBSTANCEABUSE PROGRAM, SOME INFORMATION MAY BE OMITTED. This clinical summary was aggregated from multiple sources. Caution should be exercised in using it in the provision of clinical care. This summary normalizes information from multiple sources, and as a consequence, information in this document may materially change the coding, format and clinical context of patient data. In addition, data may be omitted in some cases. CLINICAL DECISIONS SHOULD BE BASED ON THE PRIMARY CLINICAL RECORDS. [employer] provides no warranty or guarantee of the accuracy or completeness of information in this document.
== END | disposition home or self-care (01) ==
PROVIDERS: PCP Family Medicine; Referring Provider Nurse Practitioner Women's Health; Visit Provider Nurse Practitioner Women's Health
DX: Z12.31 Encounter for screening mammogram for malignant neoplasm of breast (principal)
CPT/HCPCS: 77063; 77067